=== PATIENT | female | born 1940 | race Caucasian/White ===

== ENCOUNTER 2018-07-25 04:22 | Inpatient (IN) | payer MEDICARE, MEDICAID ==
[2018-07-25] VITALS (7 sets, daily range): BP systolic 139–169; BP diastolic 83–98
[~2018-07-25] VITALS: Ht 157.5 cm; Wt 83.5 kg
--- OUTSIDE RECORDS SUMMARY | 2018-07-25 04:27 | XMS REPORT | Continuity of Care Document ---
Author Organization Unknown Address Unknown Allergies There is no data. Medications There is no data. Problems There is no data. Procedures There is no data. Results Test Result Range PDM - 09 PANEL (PROFILE 1) - 04/25/18 12:52 Prescribed Drug 1 Lyrica(TM) NRG Creatinine 83.7 mg/dL > or=20.0 pH 6.94 4.5 - 9.0 Oxidant NEGATIVE mcg/mL <200 Amphetamines NEGATIVE ng/mL <500 medMATCH Amphetamines CONSISTENT NRG Benzodiazepines NEGATIVE ng/mL <100 medMATCH Benzodiazepines CONSISTENT NRG Marijuana Metabolite NEGATIVE ng/mL <20 medMATCH Marijuana Metab CONSISTENT NRG Cocaine Metabolite NEGATIVE ng/mL <150 medMATCH Cocaine Metab CONSISTENT NRG Opiates NEGATIVE CONFIRMED ng/mL <100 Oxycodone POSITIVE ng/mL <100 COMMENT NRG Codeine NEGATIVE ng/mL <50 medMATCH Codeine CONSISTENT NRG Hydrocodone NEGATIVE ng/mL <50 medMATCH Hydrocodone CONSISTENT NRG Hydromorphone NEGATIVE ng/mL <50 medMATCH Hydromorphone CONSISTENT NRG Morphine NEGATIVE ng/mL <50 medMATCH Morphine CONSISTENT NRG Norhydrocodone NEGATIVE ng/mL <50 medMATCH Norhydrocodone CONSISTENT NRG Prescribed Drug 2 Oxycodone NRG Noroxycodone 450 ng/mL <50 medMATCH Noroxycodone CONSISTENT NRG Oxycodone 234 ng/mL <50 medMATCH Oxycodone CONSISTENT NRG Oxymorphone 1419 ng/mL <50 medMATCH Oxymorphone CONSISTENT NRG Barbiturates NEGATIVE ng/mL <300 medMATCH Barbiturates CONSISTENT NRG Methadone Metabolite NEGATIVE ng/mL <100 medMATCH Methadone Metab CONSISTENT NRG Phencyclidine NEGATIVE ng/mL <25 medMATCH Phencyclidine CONSISTENT NRG CBC w/MANUAL DIFF - 05/06/18 10:28 WHITE BLOOD CELL COUNT 8.2 Thousand/uL 3.8-10.8 RED BLOOD CELL COUNT 4.92 Million/uL 3.80-5.10 HEMOGLOBIN 14.3 g/dL 11.7-15.5 HEMATOCRIT 42.8 % 35.0-45.0 MCV 87.0 fL 80.0-100.0 MCH 29.1 pg 27.0-33.0 MCHC 33.4 g/dL 32.0-36.0 RDW 13.2 % 11.0-15.0 PLATELET COUNT 311 Thousand/uL 140-400 MPV 10.7 fL 7.5-12.5 COMMENT(S) NRG DIFFERENTIAL, MANUAL - 05/06/18 10:28 ABSOLUTE NEUTROPHILS 4707 cells/uL [id number] ABSOLUTE MONOCYTES 262 cells/uL 200-950 ABSOLUTE EOSINOPHILS 90 cells/uL 15-500 ABSOLUTE BASOPHILS 90 cells/uL 0-200 NEUTROPHILS 57.4 % NRG LYMPHOCYTES 37.2 % NRG MONOCYTES 3.2 % NRG EOSINOPHILS 1.1 % NRG BASOPHILS 1.1 % NRG ABSOLUTE LYMPHOCYTES 3050 cells/uL 850-3900 PLATELET ESTIMATION ADEQUATE ADEQUATE Encounters ACCT No. Visit Date/Time Discharge Status Pt. Type Provider Facility Loc./Unit Complaint [id number] 05/16/2018 10:00:00 05/16/2018 23:59:59 [facility] Outpatient BEATRICE ARUN CLINT AGUS TRISTEN [id number] 05/06/2018 10:00:00 Document Registration [id number] 04/25/2018 12:00:00 Document Registration
--- NOTE | 2018-07-25 04:43 | ED Abdominal Pain ---
General Chief Complaint: Abdominal/GI Problems Stated Complaint: ABD PAIN History of Present Illness Date Seen by Provider: Jul 25, 2018 Time Seen by Provider: 04:30 Initial Comments The patient is a pleasant 77-year-old female who arrives via EMS for evaluation of abdominal pain, nausea and vomiting. She says that yesterday evening she ate a jones cheeseburger with a "very large amount of sao tomean fries" at a restaurant and shortly afterward became nauseous and had a few episodes of vomiting. She then developed a cramping abdominal discomfort but states she could not have bowel movements that she took some stool softeners. She then was able to have several bowel movements. She says that prior to this meal she felt completely fine. She was concerned when the pain continued so called EMS this morning. She denies any diarrhea, rectal bleeding, hematemesis, chest pain or shortness of breath, back or flank pain, urinary complaints, pelvic pain, fevers or chills. She is alert and oriented 4, calm, and appears to be in no distress. Timing/Duration: Other (approx 8-10 hours) Severity/Quality: Moderate, Cramping Location: Generalized Abdomen Radiation: No Radiation Activities at Onset: None Modifying Factors: Improves With Vomiting (made pain better) Associated Symptoms: Nausea/Vomiting (MURIEL BILLS DO) Allergies and Home Medications Allergies Coded Allergies: Uqlboqm-Iao-Xtd Reductase Inhibitor (Verified Allergy, Unknown, 07/25/18) Sulfa (Sulfonamide Antibiotics) (Verified Allergy, Unknown, 07/25/18) codeine (Verified Allergy, Unknown, 07/25/18) lisinopril (Verified Allergy, Unknown, 07/25/18) Patient Home Medication List Home Medication List Reviewed: Yes (MURIEL BILLS DO) Home Medication List Reviewed: Yes (JOSE A ALVAREZ) Review of Systems Review of Systems Constitutional: no symptoms reported EENTM: No Symptoms Reported Respiratory: No Symptoms Reported Cardiovascular: No Symptoms Reported Gastrointestinal: Abdominal Pain, Nausea, Vomiting Genitourinary: No Symptoms Reported Musculoskeletal: no symptoms reported Skin: no symptoms reported Psychiatric/Neurological: No Symptoms Reported Endocrine: No Symptoms Reported Hematologic/Lymphatic: No Symptoms Reported (MURIEL BILLS DO) All Other Systems Reviewed Negative Unless Noted: Yes (MURIEL BILLS DO) Past Voftvwv-Zlzlkq-[place] Hx Patient Social History Recent Foreign Travel: No Contact w/Someone Who Travel: No (MURIEL BILLS DO) Recreational Drug Use: No (JOSE A ALVAREZ) Physical Exam Vital Signs Vital Signs - First Documented 07/25/18 04:39 Temp 97.7 Pulse 89 Resp 20 B/P (MAP) 149/76 (100) Pulse Ox 95 O2 Delivery Room Air (JOSE A ALVAREZ) Vital Signs Capillary Refill : (MURIEL BILLS DO) Height/Weight/BMI Height: '" Weight: lbs. oz. kg; BMI Method: General Appearance: WD/WN, no apparent distress HEENT: PERRL/EOMI, normal ENT inspection, TMs normal, pharynx normal Neck: non-tender, full range of motion, supple, normal inspection Respiratory: chest non-tender, lungs clear, normal breath sounds, no respiratory distress, no accessory muscle use Cardiovascular: regular rate, rhythm, no edema, no JVD, no murmur Gastrointestinal: non tender, soft, no organomegaly, no pulsatile mass, abnor mal bowel sounds (hyperactive) Extremities: normal range of motion, non-tender, normal inspection, no pedal edema Back: normal inspection, no CVA tenderness Neurologic/Psychiatric: 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 as tested, no motor/sensory deficits, alert, normal mood/affect, oriented x 3 Skin: normal color, warm/dry (MURIEL BILLS DO) Gastrointestinal: abnormal bowel sounds (hyperactive) (JOSE A ALVAREZ) Progress/Results/Core Measures Results/Orders Lab Results Laboratory Tests Test 07/25/18 04:40 07/25/18 06:10 Range/Units White Blood Count 11.1 H 4.3-11.0 10^3/uL Red Blood Count 4.97 4.35-5.85 10^6/uL Hemoglobin 14.1 11.5-16.0 G/DL Hematocrit 43 35-52 % Mean Corpuscular Volume 87 80-99 FL Mean Corpuscular Hemoglobin 28 25-34 PG Mean Corpuscular Hemoglobin Concent 33 32-36 G/DL Red Cell Distribution Width 13.2 10.0-14.5 % Platelet Count 290 130-400 10^3/uL Mean Platelet Volume 10.0 7.4-10.4 FL Neutrophils (%) (Auto) 90 H 42-75 % Lymphocytes (%) (Auto) 7 L 12-44 % Monocytes (%) (Auto) 3 0-12 % Eosinophils (%) (Auto) 0 0-10 % Basophils (%) (Auto) 0 0-10 % Neutrophils # (Auto) 10.0 H 1.8-7.8 X 10^3 Lymphocytes # (Auto) 0.7 L 1.0-4.0 X 10^3 Monocytes # (Auto) 0.4 0.0-1.0 X 10^3 Eosinophils # (Auto) 0.0 0.0-0.3 10^3/uL Basophils # (Auto) 0.0 0.0-0.1 10^3/uL Neutrophils % (Manual) 90 % Lymphocytes % (Manual) 7 % Monocytes % (Manual) 2 % Eosinophils % (Manual) 1 % Blood Morphology Comment NORMAL Sodium Level 138 135-145 MMOL/L Potassium Level 3.7 3.6-5.0 MMOL/L Chloride Level 97 L 98-107 MMOL/L Carbon Dioxide Level 25 21-32 MMOL/L Anion Gap 16 H 5-14 MMOL/L Blood Urea Nitrogen 26 H 7-18 MG/DL Creatinine 1.21 0.60-1.30 MG/DL Estimat Glomerular Filtration Rate 43 BUN/Creatinine Ratio 21 Glucose Level 176 H 70-105 MG/DL Calcium Level 10.0 8.5-10.1 MG/DL Corrected Calcium 9.8 8.5-10.1 MG/DL Total Bilirubin 2.0 H 0.1-1.0 MG/DL Aspartate Amino Transf (AST/SGOT) 369 H 5-34 U/L Alanine Aminotransferase (ALT/SGPT) 269 H 0-55 U/L Alkaline Phosphatase 265 H 40-136 U/L Troponin T 7 <=10 NG/L Total Protein 7.4 6.4-8.2 GM/DL Albumin 4.2 3.2-4.5 GM/DL Lipase 2075 H 8-78 U/L Urine Color YELLOW Urine Clarity CLEAR Urine pH 5.5 5-9 Urine Specific [place] 1.020 1.016-1.022 Urine Protein TRACE H NEGATIVE Urine Glucose (UA) NEGATIVE NEGATIVE Urine Ketones NEGATIVE NEGATIVE Urine Nitrite NEGATIVE NEGATIVE Urine Bilirubin NEGATIVE NEGATIVE Urine Urobilinogen 0.2 NORMAL MG/DL Urine Leukocyte Esterase NEGATIVE NEGATIVE Urine RBC (Auto) 1+ H NEGATIVE Urine RBC 2-5 H /HPF Urine WBC 0-2 /HPF Urine Squamous Epithelial Cells 0-2 /HPF Urine Crystals NONE /LPF Urine Bacteria LARGE H /HPF Urine Casts PRESENT /LPF Urine Hyaline Casts 0-2 H /LPF Urine Mucus NEGATIVE /LPF Urine Culture Indicated YES (JOSE A ALVAREZ) My Orders Orders - JOSE A ALVAREZ Fentanyl Injection (Sublimaze Injection (07/25/18 07:15) Ed Iv/Invasive Line Start (07/25/18 07:06) Ns Iv 1000 Ml (Sodium Chloride 0.9%) (07/25/18 07:06) Blood Culture (07/25/18 07:07) Lactic Acid Analyzer (07/25/18 07:07) Piperacillin/Tazobactam (Bulk) (Zosyn In (07/25/18 07:15) Ondansetron Injection (Zofran Injectio (07/25/18 07:30) Ondansetron Injection (Zofran Injectio (07/25/18 07:27) (JOSE A ALVAREZ) Medications Given in ED Current Medications Medications Dose Ordered Sig/Chela Route Start Time Stop Time Status Last Admin Dose Admin Fentanyl Citrate 25 mcg ONCE PRN IVP 07/25/18 05:00 07/25/18 05:08 25 MCG Iohexol 100 ml ONCE ONCE IV 07/25/18 05:15 07/25/18 06:02 DC 07/25/18 05:54 80 ML Ondansetron HCl 4 mg ONCE ONCE IVP 07/25/18 05:00 07/25/18 05:01 DC 07/25/18 05:08 4 MG Sodium Chloride 10 ml NEEDED PRN IV 07/25/18 05:15 07/25/18 05:55 10 ML Sodium Chloride 100 ml ONCE ONCE IV 07/25/18 05:15 07/25/18 06:02 DC 07/25/18 05:54 40 ML (JOSE A ALVAREZ) Vital Signs/I&O 07/25/18 04:39 Temp 97.7 Pulse 89 Resp 20 B/P (MAP) 149/76 (100) Pulse Ox 95 O2 Delivery Room Air (JOSE A ALVAREZ) Progress Progress Note : Progress Note @0545 - Patient noted to have a transaminitis as well as a significant elevation of her lipase. This significantly increases the likelihood of gallstone pancreatitis. CT imaging is pending. The patient will require transfer. @0600 - Pt care transferred from Dr. Bills to Dr. Ben Alvarez at this time. (MURIEL BILLS DO) Progress Note : Time: 07:03 Progress Note Assumed care of the patient at shift change. She says the fentanyl earlier only mildly helped. She still rates her pain as an 8 out of 10. We discussed the case with general surgery and they recommend sending her down admitting her to medicine and they would perform cholecystectomy. Plan to give her 100 g of fentanyl, a dose of Zosyn, more IV fluids and admit her to the hospitalist. 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 She also has kidney cancer as noted on the CT today and thyroid cancer and has had plans to have that further surgically optioned at but has not made it to surgery yet. She also mentions she has a history of CKD stage 3. Patient is being worked up by a nurse practitioner Ronak Todd at [facility]. (JOSE A ALVAREZ) Initial ECG Impression Date: Jul 25, 2018 Initial ECG Impression Time: 04:39 Comment Normal sinus rhythm, rate of 71, normal axis, no acute ischemic findings noted, no STEMI, reviewed and interpreted by myself (MURIEL BILLS DO) Diagnostic Imaging Diagonstic Imaging: CT (with contrast IV) Plain Films/CT/US/NM/MRI: abdomen, pelvis Comments Pericholecystic fluid and inflammatory/dilatory changes noted to the biliary ductal system. Gallbladder prominently distended measuring over 11 mm in length with suggestion of pericholecystic fluid or edema. Minimal hyperdense material is noted flaring posteriorly which may represent subcentimeter stones or hyperdense debris. In addition there is intrahepatic biliary ectasia. The common bile duct appears to be within normal limits measuring up to 7 mm. Differential consideration includes acute cholecystitis with coexisting cholangitis versus occult choledocholithiasis or recently passed calcified choledocholithiasis which is suggested in the small bowel in the pelvis. Please correlate with laboratory findings. If there is continued right upper quadrant tenderness right upper quadrant ultrasound may provide greater detail evaluation of this region. Multiloculated cystic structure involving the lateral aspect of the mid to superior right kidney measuring 3 x 3.7 x 3.4 cm with enhancing septations suggested. This is a presumed incidental finding however nonemergent renal ultrasound or the dedicated renal protocol imaging of the kidneys is recommended for further detailed evaluation as clinically appropriate. Diverticulosis of the distal colon without diverticulitis. No evidence for high- grade bowel obstruction. Mucosal prominence of the distal body of the stomach is presumed related to under distention. Reviewed: Reviewed [place] Study (statrad), Reviewed by Me (JOSE A ALVAREZ) Departure Communication (Admissions) Time/Spoke to Admitting Phy: 07:[address] Rosario and she accepts the patient. Time/Spoke to Consulting Phy: 07:00 Dr Sun: Discussed case lab imaging and he agrees to consult on the patient. We discussed cholecystectomy. If she is still having symptoms after that then it would be reasonable to do an ERCP. she does not have an elevated white count so he would hold off doing any antibiotics at this time. (JOSE A ALVAREZ) Impression Primary Impression: Pancreatitis due to biliary obstruction Qualified Codes: K85.10 - Biliary acute pancreatitis without necrosis or infection Additional Impressions: Cholecystitis, acute with cholelithiasis Qualified Codes: K80.01 - Calculus of gallbladder with acute cholecystitis with obstruction Biliary ectasia History of kidney cancer Disposition: 09 ADMITTED INPATIENT Condition: Stable Admissions Decision to Admit Reason: Admit from ER (General) Decision to Admit/Date: Jul 25, 2018 Time/Decision to Admit Time: 06:50 (JOSE A ALVAREZ) Departure-Patient Inst. Referrals: NO,LOCAL PHYSICIAN (PCP) Primary Care Physician MURIEL BILLS DO Jul 25, 2018 04:43 JOSE A ALVAREZ Jul 25, 2018 06:35
[2018-07-25] MEDS ORDERED: PRAMIPEXOLE 0.5 MG (04:56)
[2018-07-25] MEDS ORDERED: METOPROLOL SUCCINATE 100 MG (04:56)
[2018-07-25] MEDS ORDERED: HCTZ (04:56)
[2018-07-25] MEDS ORDERED: ATORVASTATIN 80 MG (04:56)
[2018-07-25] MEDS ORDERED: ESOMEPRA MAG CAP 40MG DR (04:56)
[2018-07-25] MEDS ORDERED: TRIAMT (04:56)
[2018-07-25] MEDS ORDERED: OXYCOD/APAP TAB 5-325MG (04:56)
[2018-07-25 05:00] LABS: BASOPHILS % (AUTO) 0 % (0-10); EOSINOPHILS % (AUTO) 0 % (0-10); HEMATOCRIT 43 % (35-52); HEMOGLOBIN 14.1 G/DL (11.5-16.0); LYMPHOCYTES # (AUTO) 0.7 X 10^3 (1.0-4.0); LYMPHOCYTES % (AUTO) 7 % (12-44); MEAN CORPUSCULAR HEMOGLOBIN 28 PG (25-34); MEAN CORPUSCULAR HGB CONC 33 G/DL (32-36); MEAN CORPUSCULAR VOLUME 87 FL (80-99); MONOCYTES # (AUTO) 0.4 X 10^3 (0.0-1.0); MONOCYTES % (AUTO) 3 % (0-12); NEUTROPHILS % (AUTO) 90 % (42-75); PLATELET COUNT 290 10^3/uL (130-400); RED CELL DISTRIBUTION WIDTH 13.2 % (10.0-14.5); WHITE BLOOD COUNT 11.1 10^3/uL (4.3-11.0)
[2018-07-25] MEDS ORDERED: fentaNYL INJECTION 100 MCG/2 ML AMP IVP PRN (05:00)
[2018-07-25] MEDS ORDERED: NS IV 1000 ML 500 ML IV SCH (05:00)
[2018-07-25] MEDS ORDERED: ONDANSETRON 4 MG/2 ML (SDV) Z0FRAN IVP ONE ×2 (05:00→07:30)
[2018-07-25 05:01] LABS: EOSINOPHILS % (MANUAL) 1 %; LYMPHOCYTES % (MANUAL) 7 %; MONOCYTES % (MANUAL) 2 %; NEUTROPHILS % (MANUAL) 90 %
[2018-07-25 05:02] LABS: RBC MORPH NORMAL
[2018-07-25] MEDS ORDERED: HOLD METFORMIN - RECEIVED CONTRAST 20 ML VIAL IV SCH (05:15)
[2018-07-25] MEDS ORDERED: NS 100 ML (IVPB) BAG IV ONE (05:15)
[2018-07-25] MEDS ORDERED: CATHETER FLUSH 10 ML SYR IV PRN ×2 (05:15→09:30)
[2018-07-25] MEDS ORDERED: IOHEXOL 350 MG/ML 100 ML (OMNIPAQUE 350) VIAL IV ONE (05:15)
[2018-07-25 05:34] LABS: CREATININE SERUM 1.21 MG/DL (0.60-1.30); POTASSIUM 3.7 MMOL/L (3.6-5.0)
[2018-07-25 05:35] LABS: ALBUMIN 4.2 GM/DL (3.2-4.5); TOTAL PROTEIN 7.4 GM/DL (6.4-8.2)
[2018-07-25 06:16] LABS: CLARITY,URINE CLEAR; COLOR,URINE YELLOW; PH,URINE 5.5 (5-9)
[2018-07-25 06:17] LABS: BILIRUBIN,URINE NEGATIVE (NEGATIVE); GLUCOSE, URINE (UA) NEGATIVE (NEGATIVE); KETONES,URINE NEGATIVE (NEGATIVE); LEUKOCYTE ESTERASE ,URINE NEGATIVE (NEGATIVE); NITRITE,URINE NEGATIVE (NEGATIVE); PROTEIN,URINE TRACE (NEGATIVE); UROBILINOGEN,URINE 0.2 MG/DL (NORMAL)
[2018-07-25 06:22] LABS: BACTERIA,URINE LARGE /HPF; HYALINE CASTS, URINE 0-2 /LPF; SQUAMOUS EPITHELIAL CELL,UR 0-2 /HPF; WBC,URINE 0-2 /HPF
[2018-07-25] MEDS ORDERED: NS IV 1000 ML 1,000 ML IV SCH (07:06)
[2018-07-25] MEDS ORDERED: fentaNYL INJECTION 100 MCG/2 ML AMP IVP ONE (07:15)
[2018-07-25] MEDS ORDERED: PIPERACILLIN/TAZOBACTAM (BULK) 4.5 GM in NS (IVPB) 100 ML IV ONE (07:15)
[2018-07-25] MEDS ORDERED: ONDANSETRON 4 MG/2 ML (SDV) Z0FRAN ONE (07:27)
--- OUTSIDE RECORDS SUMMARY | 2018-07-25 08:04 | XMS REPORT | Continuity of Care Document ---
[...] - 05/06/18 10:28 ABSOLUTE NEUTROPHILS 4707 cells/uL 3788-8749 ABSOLUTE MONOCYTES 262 cells/uL 200-950 ABSOLUTE EOSINOPHILS 90 cells/uL 15-500 ABSOLUTE BASOPHILS 90 cells/uL 0-200 NEUTROPHILS 57.4 % NRG LYMPHOCYTES 37.2 % NRG MONOCYTES 3.2 % NRG EOSINOPHILS 1.1 % NRG BASOPHILS 1.1 % NRG ABSOLUTE LYMPHOCYTES 3050 cells/uL 850-3900 PLATELET ESTIMATION ADEQUATE ADEQUATE Encounters ACCT No. Visit Date/Time Discharge Status Pt. Type Provider Facility Loc./Unit Complaint [id number] 05/16/2018 10:00:00 05/16/2018 23:59:59 [facility] Outpatient BEATRICE ARUN CLINT AGUS TRISTEN [id number] 05/06/2018 10:00:00 Document Registration [id number] 04/25/2018 12:00:00 Document Registration
--- NOTE | 2018-07-25 08:18 | NUR ---
EMS was paged at this time.
--- NOTE | 2018-07-25 08:26 | Diagnostic Imaging Report ---
PROCEDURE: CT abdomen and pelvis with contrast. TECHNIQUE: Multiple contiguous axial images were obtained through the abdomen and pelvis after administration of intravenous contrast. Auto Exposure Controls were utilized during the CT exam to meet ALARA standards for radiation dose reduction. INDICATION: Abdominal pain, history of carcinoma There are no prior studies available for comparison. The gallbladder is distended and there is a small amount of sludge and/or calculi within the dependent portion of the gallbladder. There is also small amount of pericholecystic fluid and the combination of these findings does suggest that there may well be an element of acute cholecystitis present. If further imaging is desired, then a nuclear medicine hepatobiliary scan would be recommended. The common bile duct is at the upper limits of normal measuring 7-8 MM and the proximal biliary tree does seem slightly dilated. There is no sign of choledocholithiasis and there is no evidence for a mass involving the head of the pancreas. The liver, spleen, adrenals, aorta and inferior vena cava show no sign of an acute abnormality. There is a 3.3 x 3.8 CM multiseptated cystic mass along the lateral aspect of the right kidney. This may well represent a benign process. Even so, I would recommend that an ultrasound of the right kidney be performed to better characterize this finding. The left kidney is unremarkable. There is no sign of obstruction of either collecting system. The stomach is filled with particular matter and consequently difficult to assess. The wall of the distal esophagus does seem somewhat thickened. This may be secondary to incomplete distention. If further study is desired, then either an upper GI exam or endoscopy would be recommended. There is extensive diverticulosis of the sigmoid colon but there is no distortion of the pericolonic fat to suggest acute diverticulitis. There is a small amount of free fluid in the pelvis. This is nonspecific. There is a 1 CM rounded radiopaque density within a segment of small bowel in the mid lower pelvis. This is of uncertain etiology but unlikely to represent a gallstone. There are no findings of a gallstone ileus at this time. The uterus is surgically absent. The urinary bladder is not fully distending consequently difficult to assess. There is a single droplet of gas within the bladder dome. This may be related to recent instrumentation. The appendix was visualized and was unremarkable. The bone windows show no sign of a fracture or of a destructive lesion. There are chronic pulmonary changes involving the lung bases. Cardiomegaly is also noted. IMPRESSION: 1. The gallbladder is distended and there is some sludge and/or small calculi within the gallbladder. The pericholecystic fluid also suggest there may be an element of acute cholecystitis present. Recommendations as above. 2. The common bile duct is at the upper limits of normal and the proximal biliary tree is slightly dilated. There is no sign of choledocholithiasis or of a mass involving the head of the pancreas. 3. A nonemergent ultrasound would be recommended for further evaluation of the multiseptated cystic mass along the lateral aspect of the right kidney. The wall of the distal esophagus does seem slightly thickened. Considerations and recommendations as above. 4. There is diverticulosis of the sigmoid colon without evidence for acute diverticulitis. A small amount of nonspecific free fluid is also seen in the pelvis. 5. There is cardiomegaly and chronic pulmonary disease. Dictated by: Dictated on workstation # [id number]
--- NOTE | 2018-07-25 09:10 | NUR ---
SOMMER FOSTER admitted to room 429-1, with an admitting diagnosis of CHOLECYSTITIS ABD PANCREATITIS, on 07/25/18 from ED via STRETCHER, accompanied by STAFF.SOMMER FOSTER introduced to surroundings, call light, bed controls, phone, TV, temperature control, lights, meal times, smoking policy, visitor policy, side rail policy, bathrooms and showers. Patient Rights given to patient in the handbook. SOMMER FOSTER verbalizes understanding that [facility] is not responsible for the loss or damage to any personal effects or valuables that are kept in the patients posession during their hospitalization. SOMMER FOSTER verbalizes understanding of Interdisciplinary Patient Education. Patient and/or family were informed about the Rapid Response Team and its purpose.
[2018-07-25] MEDS ORDERED: ONDANSETRON 4 MG/2 ML (SDV) Z0FRAN IV PRN (09:30)
[2018-07-25] MEDS ORDERED: PROMETHAZINE INJ 25 MG/ML (PHENERGAN) AMP IV PRN (09:30)
[2018-07-25] MEDS ORDERED: PRAM0.5T9 PO (10:03)
[2018-07-25] MEDS ORDERED: ATOR80TA76 PO (10:03)
[2018-07-25] MEDS ORDERED: ESOM40CA52 PO (10:03)
[2018-07-25] MEDS ORDERED: METO-395 PO (10:03)
[2018-07-25] MEDS ORDERED: ANAS1TAB7 PO (10:03)
[2018-07-25] MEDS ORDERED: POTA10TA10 PO (10:03)
[2018-07-25] MEDS ORDERED: TRIA1TAB3 PO (10:03)
[2018-07-25] MEDS ORDERED: OXYC-471 PO (10:03)
[2018-07-25] MEDS ORDERED: ASPI-983 PO (10:06)
[2018-07-25] MEDS ORDERED: VITA-189 PO (10:14)
[2018-07-25] MEDS ORDERED: ASCO-262 PO (10:14)
[2018-07-25] MEDS ORDERED: MULT1TAB69 PO (10:14)
--- NOTE | 2018-07-25 10:15 | NUR ---
WENT OVER THE EXT MED HX WITH THE PATIENT AND SHE VERIFIED HOW SHE TAKES THEM TO THE BEST OF HER ABILITY. SHE LISTED HER OTC MEDICATIONS WELL.
[2018-07-25] MEDS: NS W/KCL 20 MEQ/L 1,000 ML IV SCH ×2 (10:18→19:44)
[2018-07-25] MEDS: fentaNYL INJECTION 100 MCG/2 ML AMP IV PRN ×2 (11:14→17:43)
--- NOTE | 2018-07-25 14:18 | Consultation (Surgery) ---
History of Present Illness History of Present Illness Patient Consulted On(vivian/time) 07/25/18 14:12 Time Seen by Provider: 12:44 History of Present Illness Surgery asked to consult regarding abdominal pain, Pancreatitis and Cholelithiasis. HPI per ED: The patient is a pleasant 77-year-old female who arrives via EMS for evaluation of abdominal pain, nausea and vomiting. She says that yesterday evening she ate a jones cheeseburger with a "very large amount of icelandic fries" at a restaurant and shortly afterward became nauseous and had a few episodes of vomiting. She then developed a cramping abdominal discomfort but states she could not have bowel movements that she took some stool softeners. She then was able to have several bowel movements. She says that prior to this meal she felt completely fine. She was concerned when the pain continued so called EMS this morning. She denies any diarrhea, rectal bleeding, hematemesis, chest pain or shortness of breath, back or flank pain, urinary complaints, pelvic pain, fevers or chills. She is alert and oriented 4, calm, and appears to be in no distress. Timing/Duration: Other (approx 8-10 hours) Severity/Quality: Moderate, Cramping Location: Generalized Abdomen Radiation: No Radiation Activities at Onset: None Modifying Factors: Improves With Vomiting (made pain better) Associated Symptoms: Nausea/Vomiting When I saw pt today she was still having pain in the RUQ, intermittent sharp pains that she called 10 out of 10. She denies any nausea or vomiting at this time, but did get a lot of Zofran in ER. She does not think she has ever had pain like this before. Allergies and Home Medications Allergies Coded Allergies: Hoprckb-Vre-Ggy Reductase Inhibitor (Verified Allergy, Unknown, 07/25/18) Sulfa (Sulfonamide Antibiotics) (Verified Allergy, Unknown, 07/25/18) codeine (Verified Allergy, Unknown, 07/25/18) lisinopril (Verified Allergy, Unknown, 07/25/18) Home Medications Anastrozole 1 Mg Tablet, 1 MG PO DAILY, (Reported) Ascorbate Calcium 500 Mg Tablet, 500 MG PO DAILY, (Reported) Aspirin 81 Mg Tablet.dr, 81 MG PO DAILY, (Reported) Atorvastatin Calcium 80 Mg Tablet, 80 MG PO HS, (Reported) Esomeprazole Magnesium 40 Mg Capsule.dr, 40 MG PO DAILY, (Reported) Metoprolol Succinate 100 Mg Tab.er.24h, 100 MG PO DAILY, (Reported) Multivitamin 1 Each Tablet, 1 TAB PO DAILY, (Reported) Oxycodone HCl/Acetaminophen 1 Each Tablet, 1 TAB PO TID PRN for PAIN-MODERATE, (Reported) Potassium Chloride 10 Meq Tablet.er, 10 MEQ PO BID, (Reported) Pramipexole Di-HCl 0.5 Mg Tablet, 0.5 MG PO HS PRN for RESTLESSNESS, (Reported) Triamterene/Hydrochlorothiazid 1 Each Tablet, 1 TAB PO DAILY, (Reported) Vitamin B Complex 1 Each Tablet, 1 TAB PO DAILY, (Reported) Patient Home Medication List Home Medication List Reviewed: Yes Past Xauzorg-Rhlfrl-Ffqdqo Hx Patient Social History Alcohol Use: Denies Use Recreational Drug Use: No Smoking Status: Never a Smoker 2nd Hand Smoke Exposure: No Recent Foreign Travel: No Contact w/Someone Who Travel: No Recent Infectious Disease Expo: No Recent Hopitalizations: No Immunizations Up To Date Date of Pneumonia Vaccine: Jul 25, 2008 Seasonal Allergies Seasonal Allergies: No Surgeries History of Surgeries: Yes Surgeries: Breast Respiratory History of Respiratory Disorde: No Cardiovascular History of Cardiac Disorders: Yes Cardiac Disorders: High Cholesterol, Hypertension Neurological History of Neurological Disord: Yes Neurological Disorders: Neuropathy Genitourinary History of Genitourinary Disor: No Gastrointestinal History of Gastrointestinal Di: Yes Gastrointestinal Disorders: Diverticulosis, Hiatal Hernia Musculoskeletal History of Musculoskeletal Dis: Yes Musculoskeletal Disorders: Arthritis Endocrine History of Endocrine Disorders: Yes Endocrine Disorders: Hypothyroidsim HEENT History of HEENT Disorders: No Cancer History of Cancer: Yes Cancer: Breast, Thyroid, Kidney Psychosocial History of Psychiatric Problem: No Integumentary History of Skin or Integumenta: No Blood Transfusions History of Blood Disorders: No Family Medical History Significant Family History: Asthma, Cancer, COPD, Hypertension Family Medial History: Alcoholism 19 MOTHER Arthritis G8 BROTHER G8 SISTER Asthma 19 FATHER G8 SISTER Cataracts G8 SISTER Completed stroke G8 BROTHER Diabetes mellitus G8 BROTHER Hypertension 19 MOTHER Kidney disease G8 SISTER Respiratory disorder G8 BROTHER Review of Systems-General Constitutional: chills, diaphoresis, malaise, weakness EENTM: No blurred vision, No double vision, No mouth pain, No throat swelling Respiratory: No cough, No dyspnea on exertion, No hemoptysis Cardiovascular: No chest pain, No edema Gastrointestinal: abdominal pain; No jaundice; nausea, vomiting Genitourinary: No dysuria, No frequency, No hematuria Musculoskeletal: back pain, joint pain, joint swelling, muscle pain, muscle stiffness Skin: No change in color, No change in hair/nails Psychiatric/Neurological: Anxiety; Denies Depressed, Denies Seizure, Denies Tremors Other Pt denies any abnormal bleeding or bruising Physical Exam-General Problems Physical Exam Vital Signs Vital Signs - First Documented 07/25/18 04:39 Temp 97.7 Pulse 89 Resp 20 B/P (MAP) 149/76 (100) Pulse Ox 95 O2 Delivery Room Air Capillary Refill : Less Than 3 Seconds General Appearance: WD/WN, mild distress Eyes: Bilateral Eye PERRL, Bilateral Eye EOMI HEENT: pharynx normal; No scleral icterus (L), No pale conjunctivae (R), No pale conjunctivae (L) Neck: non-tender, supple Respiratory: chest non-tender, lungs clear, normal breath sounds, no respiratory distress, no accessory muscle use Cardiovascular: regular rate, rhythm Gastrointestinal: soft, tenderness, hernia (small umbilical hernia), other (obese) Back: normal inspection, no CVA tenderness, no vertebral tenderness Extremities: no pedal edema, no calf tenderness, normal capillary refill Neurologic/Psychiatric: 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 nml as tested, no motor/sensory deficits, alert, normal mood/affect, oriented x 3 Skin: normal color, warm/dry Lymphatic: no adenopathy (neck, axilla or groin) Data Review Labs Laboratory Tests 07/25/18 04:40: White Blood Count 11.1H, Red Blood Count 4.97, Hemoglobin 14.1, Hematocrit 43, Mean Corpuscular Volume 87, Mean Corpuscular Hemoglobin 28, Mean Corpuscular Hemoglobin Concent 33, Red Cell Distribution Width 13.2, Platelet Count 290, Mean Platelet Volume 10.0, Neutrophils (%) (Auto) 90H, Lymphocytes (%) (Auto) 7L , Monocytes (%) (Auto) 3, Eosinophils (%) (Auto) 0, Basophils (%) (Auto) 0, Neutrophils # (Auto) 10.0H, Lymphocytes # (Auto) 0.7L, Monocytes # (Auto) 0.4, Eosinophils # (Auto) 0.0, Basophils # (Auto) 0.0, Neutrophils % (Manual) 90, Lymphocytes % (Manual) 7, Monocytes % (Manual) 2, Eosinophils % (Manual) 1, Blood Morphology Comment NORMAL, Sodium Level 138, Potassium Level 3.7, Chloride Level 97L, Carbon Dioxide Level 25, Anion Gap 16H, Blood Urea Nitrogen 26H, Creatinine 1.21, Estimat Glomerular Filtration Rate 43, BUN/Creatinine Ratio 21, Glucose Level 176H, Calcium Level 10.0, Corrected Calcium 9.8, Total Bilirubin 2.0H, Aspartate Amino Transf (AST/SGOT) 369H, Alanine Aminotransferase (ALT/SGPT) 269H, Alkaline Phosphatase 265H, Troponin T 7, Total Protein 7.4, Albumin 4.2, Lipase 2075H 07/25/18 06:10: Urine Color YELLOW, Urine Clarity CLEAR, Urine pH 5.5, Urine Specific [place] 1.020, Urine Protein TRACEH, Urine Glucose (UA) NEGATIVE, Urine Ketones NEGATIVE, Urine Nitrite NEGATIVE, Urine Bilirubin NEGATIVE, Urine Urobilinogen 0.2, Urine Leukocyte Esterase NEGATIVE, Urine RBC (Auto) 1+H, Urine RBC 2-5H, Urine WBC 0-2, Urine Squamous Epithelial Cells 0-2, Urine Crystals NONE, Urine Bacteria LARGEH, Urine Casts PRESENT, Urine Hyaline Casts 0-2H, Urine Mucus NEGATIVE, Urine Culture Indicated YES 07/25/18 07:30: Lactic Acid Level 3.96*H 07/25/18 10:27: Lactic Acid Level 3.38*H Assessment/Plan Assessment/Plan Assessment/Plan Acute Cholelithiasis/Cholecystitis Acute Pancreatits HTN, Hypothyroidism Plan is admit NPO except sips of water, pain control, anti-emetics, IV fluids and monitor abdomen. Will recheck labs and make her NPO after midnight for planned Laparoscopic Cholecystectomy with possible cholangiogram, possible open tomorrow. Just waiting for pain to get a little better and pancreatic enzymes to start trending down. Discussed surgery with pt; risks and complications including but not limited to pain, bleeding, infection, scar, damage to bowel or bile duct and need for further procedure. All questions answered to her satisfaction. Clinical Quality Measures DVT/VTE Risk/Contraindication: Risk Factor Score Per Nursin RFS Level Per Nursing on Admit: 4+=Very High ROSARIO MOJICA DO Jul 25, 2018 14:17
[2018-07-25] MEDS ORDERED: LORazepam 0.5 MG (ATIVAN) TABLET PO NR (14:47)
[2018-07-25] MEDS ORDERED: LORazepam 1 MG (ATIVAN) TAB ONE (14:50)
[2018-07-25] MEDS ORDERED: fentaNYL INJECTION 100 MCG/2 ML AMP IM NR (15:00)
[2018-07-25] MEDS ORDERED: ACETAMINOPHEN 325 MG TABLET PO NR (15:15)
--- NOTE | 2018-07-25 15:46 | Diagnostic Imaging Report ---
EXAMINATION: Single AP view of the chest. INDICATION: PICC placement. COMPARISON: None available. FINDINGS: The right upper extremity PICC is coiled in the right axilla. There is mild left basilar atelectasis. The lungs are otherwise clear. The pulmonary vasculature is normal. No pneumothorax or large pleural effusion. The cardiomediastinal silhouette is within normal limits allowing for AP technique. No acute osseous abnormality is appreciated. Surgical clips are demonstrated in the region of the right axilla. IMPRESSION: 1. Malpositioned right upper extremity PICC, which is coiled in the right axilla. 2. Mild left basilar atelectasis; otherwise, no radiographic evidence of acute chest disease. Report was called to patient's nurse at [facility] at 3:43 p.m., by trinidad. Dictated by: Dictated on workstation # [id number]
--- NOTE | 2018-07-25 17:43 | Progress Note-Post Operative ---
Post-Operative Progess Note Surgeon (s)/Insurance Marketing Rep (s) Surgeon ROSARIO MOJICA DO Insurance Marketing Rep: none Pre-Operative Diagnosis Venous Insufficiency Post-Operative Diagnosis same Procedure & Operative Findings Date of Procedure 07/25/18 Procedure Performed/Findings Central line R IJ with US Anesthesia Type local lidocaine Estimated Blood Loss Estimated blood loss (mL): scant Specimens/Packing Specimens Removed none Packing: dictation #[id number] ROSARIO MOJICA DO Jul 25, 2018 17:43
--- NOTE | 2018-07-25 21:42 | OPERATIVE REPORT ---
DATE OF SERVICE: 07/25/2018 PREOPERATIVE DIAGNOSIS: Venous insufficiency. POSTOPERATIVE DIAGNOSIS: Venous insufficiency. PROCEDURE: Insertion of triple lumen catheter, right IJ with ultrasound guidance. SURGEON: Francisco Sun DO. SIGNAL PROCESSING ENGINEER: None. ANESTHESIA: Local lidocaine. BLOOD LOSS: Scant. FLUIDS: None. POSTOPERATIVE CONDITION: Stable. INDICATION FOR PROCEDURE: The patient is a 77-year-old female who is in the hospital with acute cholecystitis, cholelithiasis. She lost her IV access and multiple nurses attempted Peripheral access, then had a PICC line nurse check, unable to get it and then had the anesthesiologist tried twice and unable to get it, so the patient needed IV access. She has a high lactic acid and fluids and pain medications are very essential and needed a central line placed. FINDINGS: The patient had a central line placed in the right IJ under ultrasound guidance without any difficulty. PROCEDURE NOTE: After informed consent was obtained, the patient in her bed was placed slightly Trendelenburg. She was then sterilely prepped and draped in normal fashion. Local lidocaine was then used to infiltrate the skin on the right neck. Ultrasound was then used to find the right IJ and then under ultrasound guidance watched the needle go into the internal jugular vein, went in on the first attempt, but this could not get the guidewire to go down, so had to remove it, placed it again, good flash of blood and then removed the syringe, placed a guidewire using Seldinger technique, it went in easily. I then looked with ultrasound and could see the wire down further in the IJ. At this point, removed the needle, made a stab incision along the guidewire with #11 blade and then over the guidewire placed a dilator using Seldinger technique and then removed the dilator and then over the guidewire, placed the triple lumen catheter using Seldinger technique, it went in easily, removed the guidewire and placed 3 locking caps on the end of the 3 lumens and then easily aspirated and flushed in all 3 ports, got a good flash of blood. This was then sutured in place with 2-0 silk suture, had already infiltrated the neck with the local through that area. Once it was locked in position, then just cleaned the area with sterile saline and then placed a Biopatch and then a Tegaderm dressing. The patient tolerated the procedure, placed back in normal position. Sponge, instrument and needle counts were correct at the end of the case. Job ID: [id number] DocumentID: [id number] Dictated Date: 07/25/2018 17:42:59 Electrical Controls Designer Date: 07/25/2018 21:41:34 Dictated By: FRANCISCO SUN DO
[2018-07-26] VITALS (21 sets, daily range): BP systolic 71–155; BP diastolic 44–103
[2018-07-26] MEDS: NS W/KCL 20 MEQ/L 1,000 ML IV SCH ×4 (02:31→21:19)
[2018-07-26] MEDS: fentaNYL INJECTION 100 MCG/2 ML AMP IV PRN ×3 (05:25→23:14)
[2018-07-26 05:38] LABS: BASOPHILS % (AUTO) 0 % (0-10); EOSINOPHILS % (AUTO) 0 % (0-10); HEMATOCRIT 38 % (35-52); HEMOGLOBIN 12.3 G/DL (11.5-16.0); LYMPHOCYTES # (AUTO) 1.1 X 10^3 (1.0-4.0); LYMPHOCYTES % (AUTO) 5 % (12-44); MEAN CORPUSCULAR HEMOGLOBIN 28 PG (25-34); MEAN CORPUSCULAR HGB CONC 33 G/DL (32-36); MEAN CORPUSCULAR VOLUME 86 FL (80-99); MONOCYTES # (AUTO) 1.3 X 10^3 (0.0-1.0); MONOCYTES % (AUTO) 6 % (0-12); NEUTROPHILS # (AUTO) 18.4 X 10^3 (1.8-7.8); NEUTROPHILS % (AUTO) 88 % (42-75); PLATELET COUNT 216 10^3/uL (130-400); RED CELL DISTRIBUTION WIDTH 14.4 % (10.0-14.5); WHITE BLOOD COUNT 20.9 10^3/uL (4.3-11.0)
[2018-07-26 06:01] LABS: ALBUMIN 3.4 GM/DL (3.2-4.5); BILIRUBIN,TOTAL 1.6 MG/DL (0.1-1.0); CALCIUM 9.1 MG/DL (8.5-10.1); CREATININE SERUM 0.94 MG/DL (0.60-1.30); POTASSIUM 3.7 MMOL/L (3.6-5.0)
--- NOTE | 2018-07-26 09:02 | NUR ---
PRIOR TO A.M. MEDICATIONS PULSE WAS 147 B/P WAS 132/85
[2018-07-26] MEDS ORDERED: PIPERACILLIN/TAZO 4.5 GM/NS 100 ML IV NR ×2 (10:15)
[2018-07-26] MEDS ORDERED: LABETALOL HCL 20 MG/4 ML VIAL IV NR (10:45)
--- NOTE | 2018-07-26 10:49 | NUR ---
DR. LINARES CONSULTED AT THIS TIME FOR SURGICAL CLEARANCE.
--- NOTE | 2018-07-26 12:19 | History & Physicial (CHS) ---
HPI History of Present Illness: 77 yo F that presented to ER after eating dinner and then having severe pain. States that she has not had pain like this before. Denies any N/V or blood in stool. This AM patient is having shortness of breath and having tachycardia into the 140s. Denies any chest pain. Found to have concerns for acute cholecystitis on exam and imaging. Source: patient Exam Limitations: no limitations Date seen by provider: Jul 26, 2018 Time Seen by Provider: 10:45 Attending Physician Palmer Rosario MD PCP [place] Consult Date of Admission Jul 25, 2018 at 08:00 Home Medications Home Medications Reviewed patient Home Medication Reconciliation performed by pharmacy medication reconciliations chemical production technician and/or nursing. Patients Allergies have been reviewed. Allergies Coded Allergies: Ukmczex-Lzb-Xgn Reductase Inhibitor (Verified Allergy, Unknown, 07/25/18) Sulfa (Sulfonamide Antibiotics) (Verified Allergy, Unknown, 07/25/18) codeine (Verified Allergy, Unknown, 07/25/18) lisinopril (Verified Allergy, Unknown, 07/25/18) IPX-Rahkvt-Wrrtwk Hx Patient Social History Alcohol Use: Denies Use Recreational Drug Use: No Smoking Status: Never a Smoker 2nd Hand Smoke Exposure: No Recent Foreign Travel: No Contact w/other who traveled: No Recent Hopitalizations: No Recent Infectious Disease Expo: No Immunizations Up To Date Date of Pneumonia Vaccine: Jul 25, 2008 Past Medical History GERD HTN Family Medical History Significant Family History: Asthma, Cancer, COPD, Hypertension Family History: Alcoholism 19 MOTHER Arthritis G8 BROTHER G8 SISTER Asthma 19 FATHER G8 SISTER Cataracts G8 SISTER Completed stroke G8 BROTHER Diabetes mellitus G8 BROTHER Hypertension 19 MOTHER Kidney disease G8 SISTER Respiratory disorder G8 BROTHER Review of Systems (CHC) Constitutional: chills, malaise, weakness EENTM: no symptoms reported; No mouth pain, No nose congestion, No nose pain, No throat swelling Respiratory: dyspnea on exertion; No orthopnea; short of breath Cardiovascular: no symptoms reported; No chest pain, No edema, No palpitations Gastrointestinal: abdominal pain (RUQ), loss of appetite; No nausea, No vomiting Genitourinary: no symptoms reported; No dysuria, No frequency, No hematuria : No Musculoskeletal: no symptoms reported; No back pain, No joint pain, No muscle pain Skin: no symptoms reported; No lesions, No rash Psychiatric/Neurological: No Symptoms Reported Reviewed Test Results Reviewed Test Results Lab Laboratory Tests Test 07/26/18 05:30 07/26/18 11:02 07/26/18 15:57 Range/Units White Blood Count 20.9 H 4.3-11.0 10^3/uL Red Blood Count 4.35 4.35-5.85 10^6/uL Hemoglobin 12.3 11.5-16.0 G/DL Hematocrit 38 35-52 % Mean Corpuscular Volume 86 80-99 FL Mean Corpuscular Hemoglobin 28 25-34 PG Mean Corpuscular Hemoglobin Concent 33 32-36 G/DL Red Cell Distribution Width 14.4 10.0-14.5 % Platelet Count 216 130-400 10^3/uL Mean Platelet Volume 10.0 7.4-10.4 FL Neutrophils (%) (Auto) 88 H 42-75 % Lymphocytes (%) (Auto) 5 L 12-44 % Monocytes (%) (Auto) 6 0-12 % Eosinophils (%) (Auto) 0 0-10 % Basophils (%) (Auto) 0 0-10 % Neutrophils # (Auto) 18.4 H 1.8-7.8 X 10^3 Lymphocytes # (Auto) 1.1 1.0-4.0 X 10^3 Monocytes # (Auto) 1.3 H 0.0-1.0 X 10^3 Eosinophils # (Auto) 0.0 0.0-0.3 10^3/uL Basophils # (Auto) 0.0 0.0-0.1 10^3/uL Sodium Level 141 135-145 MMOL/L Potassium Level 3.7 3.6-5.0 MMOL/L Chloride Level 111 H 98-107 MMOL/L Carbon Dioxide Level 22 21-32 MMOL/L Anion Gap 8 5-14 MMOL/L Blood Urea Nitrogen 20 H 7-18 MG/DL Creatinine 0.94 0.60-1.30 MG/DL Estimat Glomerular Filtration Rate 58 BUN/Creatinine Ratio 21 Glucose Level 117 H 70-105 MG/DL Calcium Level 9.1 8.5-10.1 MG/DL Corrected Calcium 9.6 8.5-10.1 MG/DL Total Bilirubin 1.6 H 0.1-1.0 MG/DL Aspartate Amino Transf (AST/SGOT) 190 H 5-34 U/L Alanine Aminotransferase (ALT/SGPT) 324 H 0-55 U/L Alkaline Phosphatase 220 H 40-136 U/L Total Protein 6.0 L 6.4-8.2 GM/DL Albumin 3.4 3.2-4.5 GM/DL Triglycerides Level 90 <150 MG/DL Lactic Acid Level 0.92 0.50-2.00 MMOL/L B-Type Natriuretic Peptide 88.7 <100.0 PG/ML Physical Exam-(CHC) Physical Exam Vital Signs VS - Last 72 Hours, by Label 07/25/18 07/25/18 07/25/18 07/25/18 04:39 07:30 07:45 08:00 Temp 97.7 Pulse 89 107 108 106 Resp 20 20 18 B/P (MAP) 149/76 (100) 139/88 (105) 157/98 (117) 166/90 (115) Pulse Ox 95 96 95 91 O2 Delivery Room Air Room Air Nasal Cannula Room Air 07/25/18 07/25/18 07/25/18 07/25/18 08:15 08:30 09:10 12:00 Temp 98.0 100.7 Pulse 102 92 116 Resp 18 20 18 B/P (MAP) 169/91 (117) 160/80 (106) 143/89 (107) Pulse Ox 93 93 94 O2 Delivery Room Air Room Air Room Air Room Air 07/25/18 07/25/18 07/25/18 07/25/18 16:59 17:47 19:57 20:45 Temp 100.0 100.0 100.3 Pulse 110 106 Resp 22 32 B/P (MAP) 155/88 (110) 143/83 (103) Pulse Ox 94 93 O2 Delivery Room Air Room Air Room Air 07/26/18 07/26/18 07/26/18 07/26/18 00:26 04:59 08:00 08:00 Temp 99.0 99.8 100.1 Pulse 104 122 147 Resp 28 28 B/P (MAP) 120/70 (87) 155/83 (107) 126/75 (92) Pulse Ox 91 91 90 90 O2 Delivery Room Air Room Air Room Air Room Air 07/26/18 07/26/18 12:00 15:42 Temp 99.5 Pulse 101 112 Resp 26 23 B/P (MAP) 129/62 (84) Pulse Ox 92 96 O2 Delivery Room Air FiO2 50 Capillary Refill : Less Than 3 Seconds General Appearance: WD/WN HEENT: PERRL/EOMI Neck: non-tender, full range of motion, supple Respiratory: lungs clear, normal breath sounds, accessory muscle use Cardiovascular: normal peripheral pulses, regular rate, rhythm, no edema, no murmur Gastrointestinal: normal bowel sounds, soft, no organomegaly, tenderness (RUQ) Back: no CVA tenderness, no vertebral tenderness Extremities: no pedal edema, no calf tenderness, normal capillary refill Neurologic/Psychiatric: 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 nml as tested, no motor/sensory deficits, alert, normal mood/affect, oriented x 3 Skin: normal color, warm/dry Lymphatic: no adenopathy Assessment/Plan Assessment/Plan Admission Status: Inpatient Order (span 2 midnights) Reason for Inpatient Admission: Patient needs close monitoring and surgery (1) Shortness of breath Status: Acute Assessment & Plan: - Normal saturations but patient is tachycardic, decreased IVFs 75, BNP pending, ECG pending (2) Tachyarrhythmia Status: Acute Assessment & Plan: - ECG pending, Labetalol given, Cardiology consulted for surgical clearance (3) Cholecystitis, acute with cholelithiasis Status: Acute Assessment & Plan: - Dr Sun managing Qualifiers: Qualified Codes: K80.01 - Calculus of gallbladder with acute cholecystitis with obstruction (4) Pancreatitis due to biliary obstruction Status: Acute Qualifiers: Qualified Codes: K85.10 - Biliary acute pancreatitis without necrosis or infection (5) Lactic acid acidosis Status: Acute Assessment & Plan: - Repeat LA pending Clinical Quality Measures DVT/VTE Risk/Contraindication: Risk Factor Score Per Nursin RFS Level Per Nursing on Admit: 4+=Very High PALMER ROSARIO MD Jul 26, 2018 12:19
[2018-07-26] MEDS ORDERED: proPOfol 200 MG/20 ML (DIPRIVAN) VIAL IV ONE (12:27)
[2018-07-26] MEDS ORDERED: LIDOCAINE PF 2% 5 ML (XYLOCAINE) VIAL ONE (12:27)
[2018-07-26] MEDS ORDERED: ROCURONIUM 10 MG/ML 5 ML SYRINGE IV ONE ×2 (12:27→14:54)
[2018-07-26] MEDS ORDERED: ONDANSETRON 4 MG/2 ML (SDV) Z0FRAN ONE (12:27)
[2018-07-26] MEDS ORDERED: SUCCINYLCHOLINE INJ 100 MG/5 ML SYR ONE (12:27)
[2018-07-26] MEDS ORDERED: fentaNYL INJECTION 100 MCG/2 ML AMP ONE ×2 (12:28→14:47)
[2018-07-26] MEDS ORDERED: MIDAZOLAM 2 MG/2 ML (VERSED) VIAL ONE (12:28)
[2018-07-26] MEDS ORDERED: LIDOCAINE/EPI 1%-1:100,000 (XYLOCAINE) 20ML ONE (13:03)
[2018-07-26] MEDS ORDERED: BUPIVACAINE 0.5% 30 ML (SENSORCAINE) VIAL ONE (13:03)
--- NOTE | 2018-07-26 13:30 | NUR ---
PATIENT TO SURGERY VIA BED AT THIS TIME. DR. LINARES ALSO HERE AT THIS TIME FOR CARDIAC CLEARANCE FOR SURGERY AT THIS TIME.
--- NOTE | 2018-07-26 13:33 | Consultation-Cardiology ---
HPI-Cardiology Cardiology Consultation Date of Consultation 07/26/18 Date of Admission Time Seen by Provider: 13:28 Indication: tachycardia HPI 77 years old lady with history of hypertension, admitted with acute cholecystitis and she was scheduled for surgery today. I was called for preoperative evaluation due to tachycardia, her heart rate is over 100, she denied any previous cardiac history, no chest pain. No palpitation, having abdominal pain. Having fever. No previous cardiac workup was done. Home Medications & Allergies Allergies: Coded Allergies: Tjrcynu-Uqn-Ytu Reductase Inhibitor (Verified Allergy, Unknown, 07/25/18) Sulfa (Sulfonamide Antibiotics) (Verified Allergy, Unknown, 07/25/18) codeine (Verified Allergy, Unknown, 07/25/18) lisinopril (Verified Allergy, Unknown, 07/25/18) Home Medication List Reviewed: Yes BSN-Wvassi-Iamkhs Hx Patient Social History Alcohol Use: Denies Use Recreational Drug Use: No Smoking Status: Never a Smoker 2nd Hand Smoke Exposure: No Recent Foreign Travel: No Recent Infectious Disease Expo: No Recent Hopitalizations: No Immunizations Up To Date Date of Pneumonia Vaccine: Jul 25, 2008 Past Medical History discussed below Family Medical History Significant Family History: Asthma, Cancer, COPD, Hypertension Family History: Alcoholism 19 MOTHER Arthritis G8 BROTHER G8 SISTER Asthma 19 FATHER G8 SISTER Cataracts G8 SISTER Completed stroke G8 BROTHER Diabetes mellitus G8 BROTHER Hypertension 19 MOTHER Kidney disease G8 SISTER Respiratory disorder G8 BROTHER Review of Systems-General Review of Systems Constitutional: chills, diaphoresis, malaise, weakness EENTM: No blurred vision, No double vision, No mouth pain, No throat swelling Respiratory: No cough, No dyspnea on exertion, No hemoptysis Cardiovascular: No chest pain, No edema Gastrointestinal: abdominal pain; No jaundice; nausea, vomiting Genitourinary: No dysuria, No frequency, No hematuria Musculoskeletal: back pain, joint pain, joint swelling, muscle pain, muscle stiffness Skin: No change in color, No change in hair/nails Psychiatric/Neurological: Anxiety; Denies Depressed, Denies Seizure, Denies Tremors All Other Systems Reviewed Negative Unless Noted: Yes Reviewed Test Results Reviewed Test Results Lab Laboratory Tests Test 07/26/18 05:30 07/26/18 11:02 Range/Units White Blood Count 20.9 H 4.3-11.0 10^3/uL Red Blood Count 4.35 4.35-5.85 10^6/uL Hemoglobin 12.3 11.5-16.0 G/DL Hematocrit 38 35-52 % Mean Corpuscular Volume 86 80-99 FL Mean Corpuscular Hemoglobin 28 25-34 PG Mean Corpuscular Hemoglobin Concent 33 32-36 G/DL Red Cell Distribution Width 14.4 10.0-14.5 % Platelet Count 216 130-400 10^3/uL Mean Platelet Volume 10.0 7.4-10.4 FL Neutrophils (%) (Auto) 88 H 42-75 % Lymphocytes (%) (Auto) 5 L 12-44 % Monocytes (%) (Auto) 6 0-12 % Eosinophils (%) (Auto) 0 0-10 % Basophils (%) (Auto) 0 0-10 % Neutrophils # (Auto) 18.4 H 1.8-7.8 X 10^3 Lymphocytes # (Auto) 1.1 1.0-4.0 X 10^3 Monocytes # (Auto) 1.3 H 0.0-1.0 X 10^3 Eosinophils # (Auto) 0.0 0.0-0.3 10^3/uL Basophils # (Auto) 0.0 0.0-0.1 10^3/uL Sodium Level 141 135-145 MMOL/L Potassium Level 3.7 3.6-5.0 MMOL/L Chloride Level 111 H 98-107 MMOL/L Carbon Dioxide Level 22 21-32 MMOL/L Anion Gap 8 5-14 MMOL/L Blood Urea Nitrogen 20 H 7-18 MG/DL Creatinine 0.94 0.60-1.30 MG/DL Estimat Glomerular Filtration Rate 58 BUN/Creatinine Ratio 21 Glucose Level 117 H 70-105 MG/DL Calcium Level 9.1 8.5-10.1 MG/DL Corrected Calcium 9.6 8.5-10.1 MG/DL Total Bilirubin 1.6 H 0.1-1.0 MG/DL Aspartate Amino Transf (AST/SGOT) 190 H 5-34 U/L Alanine Aminotransferase (ALT/SGPT) 324 H 0-55 U/L Alkaline Phosphatase 220 H 40-136 U/L Total Protein 6.0 L 6.4-8.2 GM/DL Albumin 3.4 3.2-4.5 GM/DL Lactic Acid Level 0.92 0.50-2.00 MMOL/L B-Type Natriuretic Peptide 88.7 <100.0 PG/ML Physical Exam Physical Exam Vital Signs Vital Signs - First Documented 07/25/18 04:39 Temp 97.7 Pulse 89 Resp 20 B/P (MAP) 149/76 (100) Pulse Ox 95 O2 Delivery Room Air Capillary Refill : Less Than 3 Seconds Height, Weight, BMI Height: 5'2.00" Weight: 175lbs. 0.0oz. 79.401444wp; 32.0 BMI Method:Stated General Appearance: WD/WN, Moderate Distress Eyes: Bilateral Eye PERRL, Bilateral Eye EOMI HEENT: PERRL/EOMI, TMs Normal, Normal ENT Inspection, Pharynx Normal, Moist Mucous Membranes Neck: Full Range of Motion, Normal Inspection, Non Tender, Supple, Carotid Bruit Respiratory: Chest Non Tender, Normal Breath Sounds, No Accessory Muscle Use, No Respiratory Distress Cardiovascular: No Edema, No Gallop, No JVD, No Murmur, Normal Peripheral Pulses, Systolic Murmur, Tachycardia Gastrointestinal: No Organomegaly, No Pulsatile Mass, Soft, Abnormal Bowel Sounds, Distended, Tenderness Back: Normal Inspection, No CVA Tenderness, No Vertebral Tenderness Extremity: Normal Capillary Refill, Normal Inspection, Normal Range of Motion, Non Tender, No Calf Tenderness, No Pedal Edema Neurologic/Psychiatric: Alert, Oriented x3, No Motor/Sensory Deficits, Normal Mood/Affect Skin: Normal Color, Warm/Dry Lymphatic: No Adenopathy A/P-Cardiology Admission Diagnosis Acute cholecystitis Acute pancreatitis Sinus tachycardia Hypertension Assessment/Plan Acute cholecystitis, patient is scheduled for surgery today. Next Acute pancreatitis, monitor at this time. Sinus tachycardia secondary to above, continue to monitor and use IV beta blockers as tolerated Shortness of breath. Continue to monitor postoperatively Hypertension, restart home medication once patient recovered from surgery. Preoperative cardiac evaluation, patient is considered at intermediate to high risk for perioperative cardiac vascular complications, decision regarding the surgery, risks versus benefit is deferred to surgeon Clinical Quality Measures DVT/VTE Risk/Contraindication: Risk Factor Score Per Nursin RFS Level Per Nursing on Admit: 4+=Very High OSCAR LINARES MD Jul 26, 2018 13:33
[2018-07-26] MEDS: LACTATED RINGERS 1,000 ML IV PRN ×2 (13:36→14:33)
[2018-07-26] MEDS ORDERED: SEVOFLURANE (ULTANE) 15 ML INHAL SOLN ONE ×2 (14:22→14:55)
[2018-07-26] MEDS ORDERED: DEXAMETHASONE 10 MG/ML (DECADRON) 1 ML VIAL ONE (14:23)
[2018-07-26] MEDS ORDERED: NEOSTIGMINE 1 MG/ML 5 ML SYRINGE ONE (14:32)
[2018-07-26] MEDS ORDERED: GLYCOPYRROLATE 0.2 MG/ML (ROBINUL) 2 ML VIAL ONE (14:32)
[2018-07-26] MEDS ORDERED: SUGAMMADEX 500 MG/5 ML VIAL (BRIDION) IV ONE (14:41)
--- NOTE | 2018-07-26 14:42 | Progress Note-Post Operative ---
Post-Operative Progess Note Surgeon (s)/Consultant Education (s) Surgeon ROSARIO MOJICA DO Consultant Education: Nanci Pre-Operative Diagnosis Acute Jaquan/jaquan, Acute Pancreatitis Post-Operative Diagnosis Same with possible necrotic GB, Saponification of surrounding tissue with some fat necrosis and fat necrosis of Falciform ligament Procedure & Operative Findings Date of Procedure 07/26/18 Procedure Performed/Findings Lap Jaquan with IOC Anesthesia Type GET Estimated Blood Loss Estimated blood loss (mL): scant Specimens/Packing Specimens Removed GB and contents ROSARIO MOJICA DO Jul 26, 2018 14:42
[2018-07-26] MEDS ORDERED: PROPOFOL DRIP (ICU) 100 ML IV ONE (15:09)
[2018-07-26] MEDS ORDERED: PROPOFOL DRIP (ICU) 100 ML IV SCH (15:30)
--- NOTE | 2018-07-26 15:45 | NUR ---
RECEIVED REPORT FROM BRITT FUNERAL DIRECTOR/EMBALMER. THIS RN TO ASSUME CARE OF PT. PT TRANSFERRED TO [facility]6 AFTER SURGERY. PT CURRENTLY SEDATED ON VENT. APPEARS COMFORTABLE. 4 ABD LAP SITES NOTED W/ DERMABOND. NO DRAINAGE. ICE PACK OVER SITES. WILL CONT TO MONITOR PT.
--- NOTE | 2018-07-26 15:51 | NUR ---
EICU NOTIFIED OF PT'S ARRIVAL TO [facility], DR ROB TO REVIEW LABS/XRAY AND FAX OVER VENT ORDERS.
[2018-07-26 16:05] LABS: ABG BASE EXCESS -1.2 MMOL/L (-2.5-2.5); ABG OXYGEN SATURATION 96 % (94-100); ABG PCO2 47 MMHG (35-45); ABG PO2 75 MMHG (79-93); ABG TCO2 25.4 MMOL/L (21.0-31.0)
[2018-07-26] MEDS: PROPOFOL DRIP (ICU) 100 ML IV SCH ×2 (16:05→21:17)
--- NOTE | 2018-07-26 16:05 | Diagnostic Imaging Report ---
INDICATION: Intubated patient. COMPARISON: 07/25/2018. FINDINGS: Single frontal radiographic view of the chest was obtained and demonstrates indwelling gastric tube, tip of which extends inferiorly beyond the [id number]. Per report, there is indwelling endotracheal tube. Endotracheal tube however is heavily obscured. Right upper extremity central venous catheter is also seen. Tip appears to terminate within the right atrium just below the cavoatrial junction. Cardiac silhouette and pulmonary vasculature are stable. Lungs show low inspiratory volumes with bibasilar atelectasis. There is also probable small left basilar effusion. No pneumothorax is seen. Bony structures show no gross acute abnormalities. IMPRESSION: 1. Lines and tubes as above. Please note, the reported indwelling endotracheal tube is obscured. 2. Low lung volumes with bibasilar atelectasis and probable small left basilar effusion. Dictated by: Dictated on workstation # [id number]
[2018-07-26 16:06] LABS: ALLENS TEST YES-POS; INSPIRED O2 50%; PATIENT TEMP 98.9; VENTILATOR YES
[2018-07-26 16:11] LABS: ABG PH 7.33 (7.37-7.43)
[2018-07-26] MEDS: PIPERACILLIN/TAZOBACTAM (BULK) 4.5 GM in NS (IVPB) 100 ML IV SCH (16:31)
--- NOTE | 2018-07-26 16:50 | NUR ---
BP READING 71/40, CUFF READJUSTED AND TAKEN AGAIN-NEXT READING 85/58. PROPOFOL DECREASED FROM 30MCG TO 20MCG (SEE IV SPREADSHEET FOR DETAILS). DR MOJICA NOTIFIED, NEW ORDERS RECEIVED TO GIVE 500ML LR BOLUS AND INCREASE IVF TO 200ML/HR.
[2018-07-26] MEDS ORDERED: LACTATED RINGERS 1,000 ML IV NR (17:00)
--- NOTE | 2018-07-26 17:26 | Diagnostic Imaging Report ---
Indication: Cholecystectomy. Comparison: CT dated 07/25/2018. Total fluoroscopy time: 20.5 seconds. Findings: Multiple intraoperative image intensifier and digital subtraction images of the right upper abdominal quadrant were obtained during intraoperative cholangiogram. Images provided show contrast filling the intrahepatic and extrahepatic biliary ductal systems. There is no evidence of obstruction. No distinct intraluminal filling defects are identified. Please note, interpreting radiologist was not present during the procedure. Impression: Intraoperative cholangiogram, as described above. Dictated by: Dictated on workstation # [id number]
--- NOTE | 2018-07-26 18:03 | NUR ---
BP CONTINUES TO BE LOW AFTER LR 500ML BOLUS, DR MOJICA NOTIFIED. NEW ORDERS RECEIVED TO GIVE ADDITIONAL 1L LR OVER 1 HR.
[2018-07-26] MEDS ORDERED: LACTATED RINGERS 1,000 ML IV ONE (18:15)
--- NOTE | 2018-07-26 21:08 | NUR ---
40 ML OF URINE OUTPUT NOTED SINCE 1721. E-ICU NOTIFIED.
--- NOTE | 2018-07-26 21:15 | NUR ---
NEW ORDER RECEIVED FROM E-ICU FOR 1 L NS BOLUS OVER TWO HOURS.
[2018-07-26] MEDS ORDERED: NS IV 1000 ML 1,000 ML ONE (21:21)
[2018-07-26] MEDS ORDERED: NS IV 1000 ML 1,000 ML IV ONE (22:00)
[2018-07-27] VITALS (27 sets, daily range): BP systolic 93–187; BP diastolic 61–111
[2018-07-27] MEDS: PIPERACILLIN/TAZOBACTAM (BULK) 4.5 GM in NS (IVPB) 100 ML IV SCH ×3 (00:47→17:05)
--- NOTE | 2018-07-27 01:18 | OPERATIVE REPORT ---
DATE OF SERVICE: PREOPERATIVE DIAGNOSES: Acute cholecystitis, cholelithiasis and acute pancreatitis. POSTOPERATIVE DIAGNOSES: 1. Acute cholecystitis, cholelithiasis and acute pancreatitis with possible necrotic gallbladder. 2. Saponification of surrounding tissue with some fat necrosis. 3. Fat necrosis of the falciform ligament. PROCEDURES PERFORMED: Laparoscopic cholecystectomy, intraoperative cholangiogram. SURGEON: Francisco Sun DO SHOOTER HELPER: Phil Christine DO ANESTHESIA: General endotracheal tube. SPECIMEN: Gallbladder and contents. BLOOD LOSS: Scant. FLUIDS: Per Anesthesia. POSTOPERATIVE CONDITION: Stable. INDICATION FOR PROCEDURE: The patient is a 77-year-old female, who came in with abdominal pain, elevated lipase and CAT scan which showed fluid around the gallbladder, thickened wall and some stones. Today, her white count jumped up and she was feeling worse, taken to the operating room. FINDINGS: The patient had what looked like a partially necrotic gallbladder, very large amount of edema around the gallbladder and then in the surrounding area, there was saponification and what looked like fat necrosis above the stomach and duodenum as well as all along the falciform ligament. PROCEDURE NOTE: After informed consent was obtained, the patient was brought to the operating room, placed on the table in supine position. She was sterilely prepped and draped in normal fashion. Local lidocaine was used to infiltrate the skin above the umbilicus. An incision was made with #11 blade, carried down through skin and subcutaneous tissue, deepened down to subcutaneous tissue with Bovie electrocautery down to fascia. Fascia was incised with Bovie electrocautery, bluntly entered into the abdomen, swept a finger around, placed #0 Vicryl [id number] suture and placed 11 mm trocar port under direct visualization, created pneumoperitoneum. I then placed two more ports in normal fashion using local lidocaine, 11 blade for stab incision and the VersaStep system, all done under direct visualization, one in subxiphoid and two in the right upper quadrant. Upon entry, noted a lot of adhesions and then what looked like necrotic fat and saponification of the entire falciform ligament. I took pictures of this. Able to grasp the gallbladder at the fundus and lifted up and there were adhesions. These were carefully taken down with Bovie electrocautery as well as some blunt dissection. I was then able to get down to Valeria's pouch and pulled in the inferolateral direction and start dissecting out cystic duct and cystic artery. I was able to get around the cystic duct and the cystic artery and placed 1 clip distally on the cystic duct and one distally and one proximally on the cystic artery, cut the cystic duct retirement through Metzenbaum scissors. Placed a cholangiogram catheter, shot a cholangiogram. Good spillage of dye down the common bile duct and into the small intestine as well as up into common hepatic and right and left hepatics. In the common bile duct just before dye went into the small intestine, looked like there was some almost like a stricture, we will wait for Radiology reading, but did not look like stones in the duct, almost more like apple core lesion. The cholangiogram catheter was removed, placed 2 clips proximally on the cystic duct and then cut the cystic duct and cystic artery with Metzenbaum scissors. Noted that the cystic artery was very small and had actually pulled under the clip. The clip pulled the bowel and I placed another clip on this and then encountered a posterior branch, which was much larger than the first one, clipped this twice proximally and once distally and then cut with Metzenbaum scissors. I then took the gallbladder from the bed of the liver with L-hook cautery. Once it was completely removed, placed a bag in the abdomen, then placed the gallbladder in the bag and then removed this through the supraumbilical incision. Placed the port back in the abdomen, copiously irrigated with normal saline, suctioned this out, took pictures of the necrosis and saponification, also took a piece of fibrinous material for culture. At this point, I then placed the patient supine, suctioned out all fluid. No bleeding from the bed of liver, no other obvious pathology and removed the scope and then removed all ports under direct visualization, allowed the pneumoperitoneum to escape as well as suctioned out. Closed supraumbilical incision with #0 Vicryl suture previously placed. Copiously irrigated all incisions with normal saline and closed the three small 5 mm incisions with single interrupted 4-0 undyed Monocryl subcuticular stitch, closed the supraumbilical incision with 3 interrupted 4-0 undyed Monocryl subcuticular stitches. Area was cleaned and dried. Dermabond and Band-Aids placed. The patient tolerated the procedure well. Sponge, instrument and needle count correct at the end of the case. She is still in the operating room and will be taken to the recovery room. Dr. Christine assisted by making incisions, closing incisons, helping to identify anatomy and hold anatomy out of the way. Job ID: [id number] DocumentID: [id number] Dictated Date: 07/26/2018 14:47:48 Icing Maker Date: 07/26/2018 20:35:27 Dictated By: DO GRETA GIBBS
[2018-07-27 02:42] LABS: BASOPHILS % (AUTO) 0 % (0-10); EOSINOPHILS % (AUTO) 0 % (0-10); HEMATOCRIT 24 % (35-52); HEMOGLOBIN 7.5 G/DL (11.5-16.0); LYMPHOCYTES # (AUTO) 0.8 X 10^3 (1.0-4.0); LYMPHOCYTES % (AUTO) 4 % (12-44); MEAN CORPUSCULAR HEMOGLOBIN 29 PG (25-34); MEAN CORPUSCULAR HGB CONC 32 G/DL (32-36); MEAN CORPUSCULAR VOLUME 90 FL (80-99); MEAN PLATELET VOLUME 10.7 FL (7.4-10.4); MONOCYTES # (AUTO) 1.1 X 10^3 (0.0-1.0); MONOCYTES % (AUTO) 6 % (0-12); NEUTROPHILS # (AUTO) 17.1 X 10^3 (1.8-7.8); NEUTROPHILS % (AUTO) 90 % (42-75); PLATELET COUNT 165 10^3/uL (130-400); RED CELL DISTRIBUTION WIDTH 14.1 % (10.0-14.5)
[2018-07-27] MEDS: NS W/KCL 20 MEQ/L 1,000 ML IV SCH ×4 (02:42→23:51)
[2018-07-27 02:43] LABS: ABG BASE EXCESS -3.8 MMOL/L (-2.5-2.5); ABG OXYGEN SATURATION 99 % (94-100); ABG PCO2 38 MMHG (35-45); ABG PH 7.36 (7.37-7.43); ABG PO2 97 MMHG (79-93); ABG TCO2 22.1 MMOL/L (21.0-31.0)
[2018-07-27 02:44] LABS: ALLENS TEST YES-POS; INSPIRED O2 40%; PATIENT TEMP 97.6; VENTILATOR YES
[2018-07-27 02:58] LABS: CALCIUM 7.9 MG/DL (8.5-10.1); CREATININE SERUM 1.13 MG/DL (0.60-1.30); MAGNESIUM 1.2 MG/DL (1.8-2.4); POTASSIUM 4.5 MMOL/L (3.6-5.0)
[2018-07-27] MEDS: POTASSIUM CL 10MEQ/50ML IVPB 50 ML IV SCH (03:11)
[2018-07-27] MEDS: MAGNESIUM 1 GM/100 ML IVPB 100 ML IV SCH ×5 (03:12→10:00)
[2018-07-27] MEDS: KCL 20 MEQ TAB (K-DUR) PO SCH (03:12)
--- NOTE | 2018-07-27 04:23 | Pulmonary Consultation ---
History of Present Illness History of Present Illness Date of Consultation 07/27/18 04:18 Time Seen by Provider: 04:18 Date of Admission Reason for Visit: tachycardia History of Present Illness 77yo presented to ED secondary to severe abdominal pain after eating dinner. No N/V or melena. Symptoms progressed to worsening SOB, and tachycardia. PT was taken to surgery for cholecystectomy. Post surgery pt did not tolerate extubation secondary to tachycardia and hypoxia. Pt was reintubated prior to leaving surgery area. Pt currently is sedated on Vent doing well with 35% oxygen. Allergies and Home Medications Allergies Coded Allergies: Fvtgteu-Raj-Ric Reductase Inhibitor (Verified Allergy, Unknown, 07/25/18) Sulfa (Sulfonamide Antibiotics) (Verified Allergy, Unknown, 07/25/18) codeine (Verified Allergy, Unknown, 07/25/18) lisinopril (Verified Allergy, Unknown, 07/25/18) Home Medications Anastrozole 1 Mg Tablet, 1 MG PO DAILY, (Reported) Ascorbate Calcium 500 Mg Tablet, 500 MG PO DAILY, (Reported) Aspirin 81 Mg Tablet.dr, 81 MG PO DAILY, (Reported) Atorvastatin Calcium 80 Mg Tablet, 80 MG PO HS, (Reported) Esomeprazole Magnesium 40 Mg Capsule.dr, 40 MG PO DAILY, (Reported) Metoprolol Succinate 100 Mg Tab.er.24h, 100 MG PO DAILY, (Reported) Multivitamin 1 Each Tablet, 1 TAB PO DAILY, (Reported) Oxycodone HCl/Acetaminophen 1 Each Tablet, 1 TAB PO TID PRN for PAIN-MODERATE, (Reported) Potassium Chloride 10 Meq Tablet.er, 10 MEQ PO BID, (Reported) Pramipexole Di-HCl 0.5 Mg Tablet, 0.5 MG PO HS PRN for RESTLESSNESS, (Reported) Triamterene/Hydrochlorothiazid 1 Each Tablet, 1 TAB PO DAILY, (Reported) Vitamin B Complex 1 Each Tablet, 1 TAB PO DAILY, (Reported) Past Plyeuzg-Mwajlb-Uildfw Hx Patient Social History Alcohol Use: Denies Use Recreational Drug Use: No Smoking Status: Never a Smoker 2nd Hand Smoke Exposure: No Recent Foreign Travel: No Contact w/Someone Who Travel: No Recent Infectious Disease Expo: No Recent Hopitalizations: No Physical Abuse: No Sexual Abuse: No Mistreated: No Fear: No Immunizations Up To Date Date of Pneumonia Vaccine: Jul 25, 2008 Seasonal Allergies Seasonal Allergies: No Past Medical History Surgeries: Yes Breast Respiratory: No Cardiac: Yes High Cholesterol, Hypertension Neurological: Yes Neuropathy Genitourinary: No Gastrointestinal: Yes Diverticulosis, Hiatal Hernia Musculoskeletal: Yes Arthritis Endocrine: Yes Hypothyroidsim HEENT: No Cancer: Yes Breast, Thyroid, Kidney Psychosocial: No Integumentary: No Blood Disorders: No Family Medical History Alcoholism 19 MOTHER Arthritis G8 BROTHER G8 SISTER Asthma 19 FATHER G8 SISTER Cataracts G8 SISTER Completed stroke G8 BROTHER Diabetes mellitus G8 BROTHER Hypertension 19 MOTHER Kidney disease G8 SISTER Respiratory disorder G8 BROTHER Asthma, Cancer, COPD, Hypertension Review of Systems Time Seen by Provider: 04:37 Sepsis Event Evaluation Height, Weight, BMI Height: 5'2.00" Weight: 175lbs. 0.0oz. 79.163733ui; 32.0 BMI Method:Stated Exam Exam Vital Signs Date Time Temp Pulse Resp B/P (MAP) Pulse Ox O2 Delivery O2 Flow Rate FiO2 07/27/18 04:00 97 19 122/68 (86) 97 Mechanical Ventilator 30.00 07/27/18 04:00 97.6 07/27/18 03:00 99 17 108/74 (85) 97 Mechanical Ventilator 30.00 07/27/18 02:57 99 17 98 40 07/27/18 02:00 100 16 93/69 (77) 97 Mechanical Ventilator 40.00 07/27/18 01:00 101 16 100/73 (82) 97 Mechanical Ventilator 40.00 07/27/18 01:00 101 07/27/18 00:00 97.8 07/27/18 00:00 101 16 93/62 (72) 98 Mechanical Ventilator 40.00 07/27/18 00:00 Mechanical Ventilator 40.00 07/26/18 23:26 Mechanical Ventilator 40.00 07/26/18 23:10 100 18 98 45 07/26/18 23:00 112 19 113/82 (92) 100 Mechanical Ventilator 45.00 07/26/18 22:30 98.0 07/26/18 22:00 117 18 93/70 (78) 98 Mechanical Ventilator 45.00 07/26/18 21:17 97.7 115 20 98/74 99 Mechanical Ventilator 45.00 07/26/18 21:00 115 20 98/74 (82) 99 Mechanical Ventilator 45.00 07/26/18 20:00 Mechanical Ventilator 45.00 07/26/18 20:00 110 16 91/67 (75) 99 Mechanical Ventilator 45.00 07/26/18 19:51 97.7 110 18 92/67 (75) 99 Mechanical Ventilator 45.00 07/26/18 19:00 101 07/26/18 19:00 103 16 118/72 (87) 100 Mechanical Ventilator 45.00 07/26/18 19:00 103 07/26/18 18:52 100 16 100 50 07/26/18 18:00 99 17 71/44 (53) 99 Mechanical Ventilator 50.00 07/26/18 17:00 107 16 72/54 (60) 97 Mechanical Ventilator 50.00 07/26/18 16:05 149/79 07/26/18 16:00 Mechanical Ventilator 50.00 07/26/18 16:00 109 20 148/77 (100) 96 Mechanical Ventilator 50.00 07/26/18 15:59 98.4 07/26/18 15:45 97.6 14 96 Mechanical Ventilator 07/26/18 15:42 112 23 96 50 07/26/18 15:40 14 95 Mechanical Ventilator 07/26/18 15:30 14 96 Mechanical Ventilator 07/26/18 15:20 14 95 Mechanical Ventilator 07/26/18 15:08 97.4 14 100 Mechanical Ventilator 07/26/18 12:00 99.5 101 26 129/62 (84) 92 Room Air 07/26/18 08:00 100.1 147 28 126/75 (92) 90 Room Air 07/26/18 08:00 90 Room Air 07/26/18 04:59 99.8 122 28 155/83 (107) 91 Room Air I & O 07/27/18 07:00 Intake Total 6840 ml Output Total 775 ml Balance 6065 ml Height & Weight Height: 5'2.00" Weight: 175lbs. 0.0oz. 79.807177ez; 32.0 BMI Method:Stated General Appearance: WD/WN, Moderate Distress, Other (sedated on vent) HEENT: PERRL/EOMI, TMs Normal, Normal ENT Inspection, Pharynx Normal, Moist Mucous Membranes Neck: Full Range of Motion, Normal Inspection, Non Tender, Supple, Carotid Bruit Respiratory: Chest Non Tender, Normal Breath Sounds, No Accessory Muscle Use, No Respiratory Distress Cardiovascular: No Edema, No Gallop, No JVD, No Murmur, Normal Peripheral Pulses, Systolic Murmur, Tachycardia Capillary Refill: Less Than 3 Seconds Gastrointestinal: normal bowel sounds, soft, no organomegaly, tenderness (RUQ) Extremity: Normal Capillary Refill, Normal Inspection, Normal Range of Motion, Non Tender, No Calf Tenderness, No Pedal Edema Skin: Normal Color, Warm/Dry Lymphatic: No Adenopathy Results Lab Laboratory Tests 07/25/18 04:40 07/26/18 05:30 07/27/18 02:30 Assessment/Plan Assessment/Plan Acute respiratory failure -Pt was reintubated after surgery secondary to acute distress -Will wake up and attempt extubation -Update -- Pt self extubated during wake up period. will place her on Vapotherm for now. -CXR reviewed. Acute cholecystitis s/p surgery -Surgery following -Continue Zosyn -Await hodges cultures Metabolic acidosis -Check lactic acid Acute pancreatitis -IVF -Repeat amylase, lipase Hypomag -replace Hypotension during the night with decreased UO -Will transfuse 1 unit of PRBC -IVF pt has had 2.5liter bolus of IVF -IVF currently going at 200cc/hr Sinus tachycardia monitor -IVF CLARISSA CHEN DO Jul 27, 2018 04:23
--- NOTE | 2018-07-27 04:51 | NUR ---
0430: DR. CHEN IN TO SEE PT AT THIS TIME. ORDER RECEIVED TO SHUT PROPOFOL OFF AND WAKE PT UP FOR EXTUBATION. R/T NOTIFIED OF NEW ORDERS. AND PROPOFOL TURNED OFF. 0440: THIS RN RESPONDED TO PT'S VENT ALARM SOUNDING; PT SELF EXTUBATED. R/T AND DR. CHEN TO BEDSIDE. PT SUCTIONED AND PLACED ON VAPOTHERM AT THIS TIME; 40 L AND 45% FIO2.
[2018-07-27 05:02] LABS: AMYLASE 55 U/L (25-125); LIPASE 25 U/L (8-78); TRIGLYCERIDES 173 MG/DL (<150)
[2018-07-27] MEDS ORDERED: NS IV 500 ML 500 ML ONE (07:42)
[2018-07-27] MEDS: PANTOPRAZOLE 40 MG (PROTONIX) VIAL IV SCH (08:00)
--- NOTE | 2018-07-27 09:02 | Progress Note (SOAP) ---
Subjective Subjective/Events-last exam Apparently patient extubated herself this morning. She is communicating fairly well. She does have a slight cough with discomfort at the incisional site from cholecystectomy. Review of Systems Date Seen by Provider: Jul 27, 2018 Time Seen by Provider: 07:10 Focused Exam Lactate Level 07/25/18 10:27: Lactic Acid Level 3.38*H 07/26/18 11:02: Lactic Acid Level 0.92 07/27/18 05:15: Lactic Acid Level 1.23 Lactic Acid Level Laboratory Tests Test 07/27/18 05:15 Lactic Acid Level 1.23 MMOL/L (0.50-2.00) Objective Exam Last Set of Vital Signs Vital Signs Date Time Temp Pulse Resp B/P (MAP) Pulse Ox O2 Delivery O2 Flow Rate FiO2 07/27/18 08:00 103 38 143/81 (101) 99 Vapotherm 45.00 40.00 07/27/18 04:36 45 07/27/18 04:00 97.6 Capillary Refill : Less Than 3 Seconds I&O Intake and Output 07/27/18 00:00 Intake Total 5840 ml Output Total 1165 ml Balance 4675 ml Intake Oral 0 ml IV Total 5840 ml Output Urine Total 1140 ml Gastric Drainage Total 25 ml # Voids 2 General: Mild Distress (Especially with movement or cough) Lungs: Clear to Auscultation Heart: Regular Rate Abdomen: Other (Dressing in place) Results/Procedures Lab Laboratory Tests 07/26/18 11:02: Lactic Acid Level 0.92, B-Type Natriuretic Peptide 88.7 07/26/18 15:57: Blood Gas Puncture Site R RAD, Blood Gas Patient Temperature 98.9, Arterial Blood pH 7.33*L, Arterial Blood Partial Pressure CO2 47H, Arterial Blood Partial Pressure O2 75L, Arterial Blood HCO3 24, Arterial Blood Total CO2 25.4, Arterial Blood Oxygen Saturation 96, Arterial Blood Base Excess -1.2, Sachin Test YES-POS, Blood Gas Ventilator Setting YES, Blood Gas Inspired Oxygen 50% 07/27/18 02:30: White Blood Count 19.0H, Red Blood Count 2.61L, Hemoglobin 7.5#L, Hematocrit 24L , Mean Corpuscular Volume 90, Mean Corpuscular Hemoglobin 29, Mean Corpuscular Hemoglobin Concent 32, Red Cell Distribution Width 14.1, Platelet Count 165, Mean Platelet Volume 10.7H, Neutrophils (%) (Auto) 90H, Lymphocytes (%) (Auto) 4L, Monocytes (%) (Auto) 6, Eosinophils (%) (Auto) 0, Basophils (%) (Auto) 0, Neutrophils # (Auto) 17.1H, Lymphocytes # (Auto) 0.8L, Monocytes # (Auto) 1.1H, Eosinophils # (Auto) 0.0, Basophils # (Auto) 0.0, Sodium Level 144, Potassium Level 4.5, Chloride Level 117H, Carbon Dioxide Level 20L, Anion Gap 7, Blood Urea Nitrogen 23H, Creatinine 1.13, Estimat Glomerular Filtration Rate 47, BUN/Creatinine Ratio 20, Glucose Level 153H, Calcium Level 7.9L, Magnesium Level 1.2L, Triglycerides Level 173H, Amylase Level 55, Lipase 25 07/27/18 02:40: Blood Gas Puncture Site LEFT RADIAL, Blood Gas Patient Temperature 97.6, Arterial Blood pH 7.36L, Arterial Blood Partial Pressure CO2 38, Arterial Blood Partial Pressure O2 97H, Arterial Blood HCO3 21L, Arterial Blood Total CO2 22.1, Arterial Blood Oxygen Saturation 99, Arterial Blood Base Excess -3.8L, Sachin Test YES-POS, Blood Gas Ventilator Setting YES, Blood Gas Inspired Oxygen 40% 07/27/18 05:15: Lactic Acid Level 1.23 Microbiology 07/25/18 Blood Culture - Preliminary, Resulted No growth 07/25/18 Urine Culture - Preliminary, Resulted Escherichia coli Enterococcus faecalis 07/26/18 Gram Stain - Final, Resulted 07/26/18 Anaerobic Culture, Resulted Pending 07/26/18 Surgical Culture, Resulted Pending Assessment/Plan Assessment/Plan (1) Cholecystitis, acute with cholelithiasis Status: Acute Assessment & Plan: - Dr Sun managing Qualifiers: Qualified Codes: K80.01 - Calculus of gallbladder with acute cholecystitis with obstruction (2) Pancreatitis due to biliary obstruction Status: Acute Qualifiers: Qualified Codes: K85.10 - Biliary acute pancreatitis without necrosis or infection (3) Shortness of breath Status: Acute Assessment & Plan: - Normal saturations but patient is tachycardic, decreased IVFs 75, BNP pending, ECG pending (4) Tachyarrhythmia Status: Acute Assessment & Plan: - ECG pending, Labetalol given, Cardiology consulted for surgical clearance 07/27: Patient still slightly tachycardia status post surgery cholecystectomy (5) Lactic acid acidosis Status: Acute Assessment & Plan: - Repeat LA pending (6) Anemia Status: Acute Assessment & Plan: Patient's hemoglobin yesterday compared today went from 12.3-7.5. Most likely this is surgical blood loss. Will need to check with surgeon to ensure this is the case. She seems to be very stable clinically with regard to her hemoglobin of 7.5. Continue to monitor hemoglobin daily. Clinical Quality Measures DVT/VTE Risk/Contraindication: Risk Factor Score Per Nursin RFS Level Per Nursing on Admit: 4+=Very High JOHNNIE ORTIZ MD Jul 27, 2018 09:02
--- NOTE | 2018-07-27 09:03 | Occ Therapy Progress Note ---
Therapy Progress Note OT orders received. Chart reviewed. Pt. underwent surgery for cholecystecomy on 07-26-18. Pt. currently sedated and on vent. Unable to evaluate for skilled treatment at this time. Will continue to monitor this pt. [id number] HALLEY BURKS OT Jul 27, 2018 09:03
--- NOTE | 2018-07-27 09:36 | Diagnostic Imaging Report ---
INDICATION: Intubation. Exam compared 07/26/2018. FINDINGS: ET tube above the sahra. OG catheter in the stomach. Right IJ at the SVC. There is a tiny left pleural effusion decreased. Lungs clear. IMPRESSION: Support apparatus in good alignment. Tiny left pleural effusion nearly resolved. Clear lungs. No adverse development. Dictated by: Dictated on workstation # [id number]
[2018-07-27] MEDS: fentaNYL INJECTION 100 MCG/2 ML AMP IV PRN (09:59)
--- NOTE | 2018-07-27 11:08 | Occupational Therapy Eval ---
OT Evaluation-General/PLF Medical Diagnosis Admission Date Jul 25, 2018 at 08:00 Medical Diagnosis: Cholectystectomy, tachyarrhythmia Onset Date: Jul 25, 2018 Therapy Diagnosis Therapy Diagnosis: Decreased ADL skills Height/Weight Height (Feet): 5 Height (Inches): 2.00 Weight (Pounds): 175 Weight (Ounces): 0.0 Precautions Precautions/Isolations: Fall Prevention, Standard Precautions Safety Interventions: Bed Exit Alarm, Reorient-PRN Comments Pt. now has sitter in room. Weight Bear Status Weight Bearing Restriction: Weight Bearing/Tolerated Referral Physician: Dr. Sun Referral Reason: Activity Tolerance, Self Care, Evaluation/Treatment, Strengthening/ROM Medical History Pertinent Medical History: GERD, HTN Additional Medical History Neuropathy Current History Pt. had surgery yesterday for cholecystectomy. Declined medically and was transferred to ICU. Pt. put on vent and sedated. It was reported to this therapist that pt. had extubated self, and that she was appropriate per nursing for treatment. Nursing confirmed this to OT. Reviewed History: Yes Social History Home: Single Level Current Living Status: Alone Entry Into Home: Stairs With Railing Steps Into Home: 3 ADL-Prior Level of Function Therapy Code Descriptions/Definitions Functional [place] Measure: 0=Not Assessed/NA 4=Minimal Assistance 1=Total Assistance 5=Supervision or Setup 2=Maximal Assistance 6=Modified [place] 3=Moderate Assistance 7=Complete [place] Therapy Quality Codes: 6 Independent with activity with or without an assistive device 5 Patient requires set up or clean up by helper. Patient completes activity by themselves 4 Supervision or touching assist (CGA). [place] provide cues , steadying assist 3 The helper provides less than half the effort to complete the activity 2 The helper provides more than half the effort to complete the activity 1 Dependent. The helper does all the effort to complete an activity 7 Patient refused to complete or attempt activity 9 The patient did not perform the activity before the current illness or injury 88 Not attempted due to Medical conditions or safety concerns Functional Abilities and Goals: Independent: Patient completed the activities by him/herself, with or without an assistive device, with no assistance from a helper. Needed Some Help: Patient needed partial assistance from another person to complete activities. Dependent: A helper completed the activities for the patient. Unknown: Not Applicable: ADL PLOF Comments Pt. states that she is able to bathe and dress herself, but that she has a caregiver 3x/wk, 3 hours per day. She states that they cook, clean, and do laundry for her. Self Care: Needed Some Help Functional Cognition: Unknown DME/Equipment Comments Pt. reports that she does not use a walker or cane. Drive Self: No OT Current Status Subjective Pt. requires cues to stay on task. She reports that she is having pain in her stomach, but does not state pain level. Pt. is unaware that she was on a ventilator or that she extubated self. Appearance Pt. is up in chair. PT has just assisted her. States that she would like to stay in chair. Mental Status/Objective Patient Orientation: Confused Attachments: IV, Oxygen, Telemetry Current Upper Extremity ROM WFL ADL-Treatment Therapy Code Descriptions/Definitions Functional [place] Measure: 0=Not Assessed/NA 4=Minimal Assistance 1=Total Assistance 5=Supervision or Setup 2=Maximal Assistance 6=Modified [place] 3=Moderate Assistance 7=Complete [place] Therapy Quality Codes: 6 Independent with activity with or without an assistive device 5 Patient requires set up or clean up by helper. Patient completes activity by themselves 4 Supervision or touching assist (CGA). [place] provide cues , steadying assist 3 The helper provides less than half the effort to complete the activity 2 The helper provides more than half the effort to complete the activity 1 Dependent. The helper does all the effort to complete an activity 7 Patient refused to complete or attempt activity 9 The patient did not perform the activity before the current illness or injury 88 Not attempted due to Medical conditions or safety concerns Grooming (FIM): 3 (Pt. is able to brush teeth with cues and increased time. Pt. seems to perseverate on brushing teeth and requires cues to stop that activity. Pt. does wash hands and face with warm washcloth. Pt. is afraid to brush her hair due to multiple lines and tubes, and so OT does this for her.) Lower Body Dressing (FIM): 1 Pt. has had multiple medical changes in last 24 hours. Pt. participates but requires cues to sequence and stay on task. Due to multiple lines and tubes, pt. is afraid of bringing hands up to head to brush hair. Pt. unable to reach her feet, and seems confused as to why her abdomen hurts. A sitter was brought in for pt's safety at end of OT session. All needs were met. Education OT Patient Education: Correct positioning, Modified ADL techniques, Progress toward Goal/Update tx plan, Purpose of tx/functional activities, Reviewed precautions, Rehab process Teaching Recipient: Patient Teaching Methods: Demonstration, Discussion Response to Teaching: Verbalize Understanding, Return Demonstration OT Short Term Goals Short Term Goals Time Frame: Aug 03, 2018 Eating(FIM): 4 Grooming(FIM): 4 Bathing(FIM): 3 Upper Body Dressing(FIM): 4 Lower Body Dressing(FIM): 3 Toileting(FIM): 4 Transfers (B,C,W/C) (FIM): 4 Toilet/Commode Transfer(FIM): 4 Additional Short Term Goals: 1-Demonstrate ADL Tasks, 2-Verbalize Understanding, 3-ImproveStrength/[place]atiana 1=Demonstrate adherence to instructed precautions during ADL tasks. 2=Patient will verbalize/demonstrate understanding of assistive dev ices/modifications for ADL. 3=Patient will improve strength/tolerance for activity to enable patient to perform ADL's. OT Care Home Goals Care Home Goals Time Frame: Aug 10, 2018 Eating (FIM): 6 Grooming(FIM): 5 Bathing(FIM): 4 Upper Body Dressing(FIM): 5 Lower Body Dressing(FIM): 5 Toileting(FIM): 6 Transfers (B,C,W/C) (FIM): 6 Toilet/Commode Transfer(FIM): 6 Shower Transfer(FIM): 5 Additional Goals: 1-Demonstrate ADL Tasks, 2-Verbalize Understanding, 3- ImproveStrength/Tatiana 1=Demonstrate adherence to instructed precautions during ADL tasks. 2=Patient will verbalize/demonstrate understanding of assistive devices/modifications for ADL. 3=Patient will improve strength/tolerance for activity to enable patient to perform ADL's. OT Education/Plan Problem List/Assessment Assessment: Decreased Activ Tolerance, Dependent Transfers, Impaired Cognition, Impaired I ADL's, Impaired Self-Care Skills Discharge Recommendations Plan/Recommendations: Continue POC Comment Discharge location and equipment needs to be determined. Treatment Plan/Plan of Care Treatment,Training & Education: Yes Patient would benefit from OT for education, treatment and training to promote independence in ADL's, mobility, safety and/or upper extremity function for ADL's. Plan of Care: ADL Retraining, Caregiver Training, Functional Mobility, UE Funct Exercise/Act Treatment Duration: Aug 10, 2018 Frequency: 5 times per week Estimated Hrs Per Day: .25 hour per day Agreement: Yes Rehab Potential: Fair Time/GCodes Start Time: 10:00 Stop Time: 10:25 Total Time Billed (hr/min): 25 Billed Treatment Time 1, EVH x 10minutes, ADL x 15minutes HALLEY BURKS OT Jul 27, 2018 11:08
--- NOTE | 2018-07-27 11:35 | Physical Therapy Evaluation ---
PT Evaluation-General Medical Diagnosis Admission Date Jul 25, 2018 at 08:00 Medical Diagnosis: Cholectystectomy, tachyarrhythmia Onset Date: Jul 25, 2018 Therapy Diagnosis Therapy Diagnosis: decreased mobility Height/Weight Height (Feet): 5 Height (Inches): 2.00 Weight (Pounds): 175 Weight (Ounces): 0.0 Precautions Precautions/Isolations: Fall Prevention, Standard Precautions Referral Physician: Dr. Sun Reason for Referral: Evaluation/Treatment Medical History Pertinent Medical History: GERD, HTN Current History Pt. underwent cholecystectomy 07/26/18, intubated and sedated due to acute respiratory distress following procedure. Reviewed History: Yes Social History Home: Single Level Current Living Status: Alone Entry Into Home: Stairs With Railing PT Steps Into Home: 3 Prior/Core FIM Prior Level of Function Therapy Code Descriptions/Definitions Functional [place] Measure: 0=Not Assessed/NA 4=Minimal Assistance 1=Total Assistance 5=Supervision or Setup 2=Maximal Assistance 6=Modified [place] 3=Moderate Assistance 7=Complete [place] Therapy Quality Codes: 6 Independent with activity with or without an assistive device 5 Patient requires set up or clean up by helper. Patient completes activity by themselves 4 Supervision or touching assist (CGA). [place] provide cues , steadying assist 3 The helper provides less than half the effort to complete the activity 2 The helper provides more than half the effort to complete the activity 1 Dependent. The helper does all the effort to complete an activity 7 Patient refused to complete or attempt activity 9 The patient did not perform the activity before the current illness or injury 88 Not attempted due to Medical conditions or safety concerns Functional Abilities and Goals: Independent: Patient completed the activities by him/herself, with or without an assistive device, with no assistance from a helper. Needed Some Help: Patient needed partial assistance from another person to complete activities. Dependent: A helper completed the activities for the patient. Unknown: Not Applicable: Bed Mobility: 7 Transfers (B,C,W/C) (FIM): 7 Gait: 7 PT Evaluation-Current Subjective Pt. in bed, says "I just can't" to therapy but agrees to sit up in chair following encouragement from therapist. During session, patient c/o R-sided abdominal pain, does not give objective pain rating. Pt/Family Goals home Objective Patient Orientation: Person, Place, Time, Situation Problem Solving: Good Attachments: Oxygen, Osei Catheter, IV ROM/Strength ROM Upper Extremities See OT ROM Lower Extremities WNL (B) Strength Upper Extremities See OT Strength Lower Extremities Grossly 4/5 (B) Integumentary/Posture Integumentary see nursing notes Bowel Incontinence: No Bladder Incontinence: Osei Cath Posture kyphotic posture Neuromuscular (Tone, Coordination, Reflexes) unremarkable Sensory Vision: Functional Hearing: Functional Sensation Right Upper Extremit: Intact Sensation Left Upper Extremity: Intact Sensation Right Lower Extremit: Intact Sensation Left Lower Extremity: Intact Transfers Therapy Code Descriptions/Definitions Functional [place] Measure: 0=Not Assessed/NA 4=Minimal Assistance 1=Total Assistance 5=Supervision or Setup 2=Maximal Assistance 6=Modified [place] 3=Moderate Assistance 7=Complete [place] Transfers (B, C, W/C) (FIM): 1 Supine to/from Sit: 1 Sit to/from Stand: 2 bed to chair transfer: max A Gait Anticipated Mode of Locomotion: Walk Balance Sitting Static: Good Sitting Dynamic: Fair Standing Static: Fair Standing Dynamic: Fair Treatment transfers Assessment/Needs Pt. is a 77 y.o. female s/p cholecystectomy who presents with decreased mobility. Pt. currently requires max A with transfers and c/o abdominal pain during session. Pt. would benefit from skilled PT to improve mobility for return home (I). Rehab Potential: Good PT Short Term Goals Short Term Goals Transfers (B,C,W/C) (FIM): 4 PT Half-Way Goals Half-Way Goals PT Half-Way Goals Time Frame: Aug 03, 2018 Transfers (B,C,W/C) (FIM): 6 Gait (FIM): 6 Gait distance (FIM): 3=150 ft Distance: 150 ft Gait Level of Assist: 6 Gait Assistive Device: None, FWW PT Plan Problem List Problem List: Activity Tolerance, Functional Strength, Safety, Balance, Gait, Transfer, Bed Mobility Treatment/Plan Treatment Plan: Continue Plan of Care Treatment Plan: Bed Mobility, Education, Functional Activity Tatiana, Functional Strength, Gait, Safety, Therapeutic Exercise, Transfers Treatment Duration: Aug 03, 2018 Frequency: 6 times per week Estimated Hrs Per Day: .5 hour per day Patient and/or Family Agrees t: Yes Time/GCodes Time In: 848 Time Out: 905 Total Billed Treatment Time: 17 Total Billed Treatment 1, [facility] 17' ZENAIDA OSHEA PT Jul 27, 2018 11:35
--- NOTE | 2018-07-27 13:26 | Progress Note ---
Subjective Time Seen by a Provider: 13:01 Subjective/Events-last exam Pt seen and examined, events of this am noted. Pt is sitting up, eating ice chips and doesn't appear to be in acute distress. She does state she has pain across the upper abdomen. Review of Systems Pulmonary: No Dyspnea, No Cough Cardiovascular: No: Chest Pain, Palpitations Gastrointestinal: Abdominal Pain; No: Nausea, Vomiting Focused Exam Lactate Level 07/25/18 10:27: Lactic Acid Level 3.38*H 07/26/18 11:02: Lactic Acid Level 0.92 07/27/18 05:15: Lactic Acid Level 1.23 Objective Exam Vital Signs Date Time Temp Pulse Resp B/P (MAP) Pulse Ox O2 Delivery O2 Flow Rate FiO2 07/27/18 13:00 112 32 187/104 (131) 100 Vapotherm 45.00 40.00 07/27/18 12:40 108 07/27/18 12:30 98.2 101 32 181/96 100 Vapotherm 07/27/18 12:00 101 26 169/110 (129) 100 Vapotherm 45.00 40.00 07/27/18 12:00 98.4 101 26 173/90 100 Vapotherm 07/27/18 12:00 Vapotherm 40.00 50 07/27/18 11:45 98.7 07/27/18 11:44 98.4 105 30 165/91 100 Vapotherm 40.00 50 07/27/18 11:00 117 23 159/96 (117) 100 Vapotherm 45.00 40.00 07/27/18 10:00 115 13 145/81 (102) 96 Vapotherm 45.00 40.00 07/27/18 09:36 95 Vapotherm 40.00 50 07/27/18 09:00 135 16 147/111 (123) 98 Vapotherm 45.00 40.00 07/27/18 08:00 Vapotherm 40.00 50 07/27/18 08:00 103 38 143/81 (101) 99 Vapotherm 45.00 40.00 07/27/18 07:00 105 17 137/76 (96) 99 Vapotherm 45.00 40.00 07/27/18 07:00 108 07/27/18 06:00 93 Vapotherm 40.00 45 07/27/18 06:00 113 30 137/80 (99) 93 Vapotherm 45.00 40.00 07/27/18 05:00 112 18 142/90 (107) 97 Vapotherm 45.00 40.00 07/27/18 04:36 93 Vapotherm 40.00 45 07/27/18 04:36 Vapotherm 45.00 40.00 07/27/18 04:00 97 19 122/68 (86) 97 Mechanical Ventilator 30.00 07/27/18 04:00 Mechanical Ventilator 35.00 07/27/18 04:00 97.6 07/27/18 03:00 99 17 108/74 (85) 97 Mechanical Ventilator 30.00 07/27/18 02:57 99 17 98 40 07/27/18 02:00 100 16 93/69 (77) 97 Mechanical Ventilator 40.00 07/27/18 01:00 101 16 100/73 (82) 97 Mechanical Ventilator 40.00 07/27/18 01:00 101 07/27/18 00:00 97.8 07/27/18 00:00 101 16 93/62 (72) 98 Mechanical Ventilator 40.00 07/27/18 00:00 Mechanical Ventilator 40.00 07/26/18 23:26 Mechanical Ventilator 40.00 07/26/18 23:10 100 18 98 45 07/26/18 23:00 112 19 113/82 (92) 100 Mechanical Ventilator 45.00 07/26/18 22:30 98.0 07/26/18 22:00 117 18 93/70 (78) 98 Mechanical Ventilator 45.00 07/26/18 21:17 97.7 115 20 98/74 99 Mechanical Ventilator 45.00 07/26/18 21:00 115 20 98/74 (82) 99 Mechanical Ventilator 45.00 07/26/18 20:00 Mechanical Ventilator 45.00 07/26/18 20:00 110 16 91/67 (75) 99 Mechanical Ventilator 45.00 07/26/18 19:51 97.7 110 18 92/67 (75) 99 Mechanical Ventilator 45.00 07/26/18 19:00 101 07/26/18 19:00 103 16 118/72 (87) 100 Mechanical Ventilator 45.00 07/26/18 19:00 103 07/26/18 18:52 100 16 100 50 07/26/18 18:00 99 17 71/44 (53) 99 Mechanical Ventilator 50.00 07/26/18 17:00 107 16 72/54 (60) 97 Mechanical Ventilator 50.00 07/26/18 16:05 149/79 07/26/18 16:00 Mechanical Ventilator 50.00 07/26/18 16:00 109 20 148/77 (100) 96 Mechanical Ventilator 50.00 07/26/18 15:59 98.4 07/26/18 15:45 97.6 14 96 Mechanical Ventilator 07/26/18 15:42 112 23 96 50 07/26/18 15:40 14 95 Mechanical Ventilator 07/26/18 15:30 14 96 Mechanical Ventilator 07/26/18 15:20 14 95 Mechanical Ventilator 07/26/18 15:08 97.4 14 100 Mechanical Ventilator I & O 07/27/18 07:00 Intake Total 7040 ml Output Total 925 ml Balance 6115 ml Capillary Refill : Less Than 3 Seconds General Appearance: WD/WN, Mild Distress HEENT: PERRL/EOMI, Moist Mucous Membranes Neck: Carotid Bruit Respiratory: Chest Non Tender, Normal Breath Sounds, No Accessory Muscle Use, No Respiratory Distress Cardiovascular: No Murmur, Systolic Murmur, Tachycardia Gastrointestinal: normal bowel sounds, soft, no organomegaly, tenderness (across upper abdomen) Extremity: No Calf Tenderness, No Pedal Edema Results Lab Laboratory Tests 07/26/18 15:57: Blood Gas Puncture Site R RAD, Blood Gas Patient Temperature 98.9, Arterial Blood pH 7.33*L, Arterial Blood Partial Pressure CO2 47H, Arterial Blood Partial Pressure O2 75L, Arterial Blood HCO3 24, Arterial Blood Total CO2 25.4, Arterial Blood Oxygen Saturation 96, Arterial Blood Base Excess -1.2, Sachin Test YES-POS, Blood Gas Ventilator Setting YES, Blood Gas Inspired Oxygen 50% 07/27/18 02:30: White Blood Count 19.0H, Red Blood Count 2.61L, Hemoglobin 7.5#L, Hematocrit 24L , Mean Corpuscular Volume 90, Mean Corpuscular Hemoglobin 29, Mean Corpuscular Hemoglobin Concent 32, Red Cell Distribution Width 14.1, Platelet Count 165, Mean Platelet Volume 10.7H, Neutrophils (%) (Auto) 90H, Lymphocytes (%) (Auto) 4L, Monocytes (%) (Auto) 6, Eosinophils (%) (Auto) 0, Basophils (%) (Auto) 0, Neutrophils # (Auto) 17.1H, Lymphocytes # (Auto) 0.8L, Monocytes # (Auto) 1.1H, Eosinophils # (Auto) 0.0, Basophils # (Auto) 0.0, Sodium Level 144, Potassium Level 4.5, Chloride Level 117H, Carbon Dioxide Level 20L, Anion Gap 7, Blood Urea Nitrogen 23H, Creatinine 1.13, Estimat Glomerular Filtration Rate 47, BUN/Creatinine Ratio 20, Glucose Level 153H, Calcium Level 7.9L, Magnesium Level 1.2L, Triglycerides Level 173H, Amylase Level 55, Lipase 25 07/27/18 02:40: Blood Gas Puncture Site LEFT RADIAL, Blood Gas Patient Temperature 97.6, Arterial Blood pH 7.36L, Arterial Blood Partial Pressure CO2 38, Arterial Blood Partial Pressure O2 97H, Arterial Blood HCO3 21L, Arterial Blood Total CO2 22.1, Arterial Blood Oxygen Saturation 99, Arterial Blood Base Excess -3.8L, Sachin Test YES-POS, Blood Gas Ventilator Setting YES, Blood Gas Inspired Oxygen 40% 07/27/18 05:15: Lactic Acid Level 1.23 Microbiology 07/25/18 Blood Culture - Preliminary, Resulted No growth 07/26/18 MRSA Screen - Final, Complete MRSA not isolated 07/25/18 Urine Culture - Preliminary, Resulted Escherichia coli Enterococcus faecalis 07/26/18 Gram Stain - Final, Resulted 07/26/18 Anaerobic Culture, Resulted Pending 07/26/18 Surgical Culture, Resulted Pending Assessment/Plan Assessment/Plan Assessment/Plan S/P Lap [place] for acute Cholelithiasis/Cholecystitis Acute Pancreatitis Anemia HTN, Hypothyroidism Pt had surgery yesterday and is doing fine from that standpoint, she was kept on vent and self-extubated this am. She needed a lot of fluids and was hypotensive for a little yesterday. Hg today dropped 5gm probably all dilutional and is currently getting transfused 1 unit. Continue current care. Clinical Quality Measures DVT/VTE Risk/Contraindication: Risk Factor Score Per Nursin RFS Level Per Nursing on Admit: 4+=Very High ROSARIO MOJICA DO Jul 27, 2018 13:26
--- NOTE | 2018-07-27 13:36 | Progress Note-Cardiology ---
Cardiology SOAP Progress Note Subjective: No cp or palp or syncope Chronic exertional shortness of breath Abd pain better Objective: I&O/Vital Signs 07/27/18 07/27/18 07/27/18 07/27/18 02:00 02:57 03:00 04:00 Temp 97.6 Pulse 100 99 99 Resp 16 17 17 B/P (MAP) 93/69 (77) 108/74 (85) Pulse Ox 97 98 97 O2 Delivery Mechanical Ventilator Mechanical Ventilator O2 Flow Rate 40.00 30.00 FiO2 40 07/27/18 07/27/18 07/27/18 07/27/18 04:00 04:00 04:36 04:36 Pulse 97 Resp 19 B/P (MAP) 122/68 (86) Pulse Ox 97 93 O2 Delivery Mechanical Ventilator Mechanical Ventilator Vapotherm Vapotherm O2 Flow Rate 35.00 30.00 45.00 40.00 40.00 FiO2 45 07/27/18 07/27/18 07/27/18 07/27/18 05:00 06:00 06:00 07:00 Pulse 112 113 108 Resp 18 30 B/P (MAP) 142/90 (107) 137/80 (99) Pulse Ox 97 93 93 O2 Delivery Vapotherm Vapotherm Vapotherm O2 Flow Rate 45.00 45.00 40.00 40.00 40.00 FiO2 45 07/27/18 07/27/18 07/27/18 07/27/18 07:00 08:00 08:00 09:00 Pulse 105 103 135 Resp 17 38 16 B/P (MAP) 137/76 (96) 143/81 (101) 147/111 (123) Pulse Ox 99 99 98 O2 Delivery Vapotherm Vapotherm Vapotherm Vapotherm O2 Flow Rate 45.00 45.00 40.00 45.00 40.00 40.00 40.00 FiO2 50 07/27/18 07/27/18 07/27/18 07/27/18 09:36 10:00 11:00 11:44 Temp 98.4 Pulse 115 117 105 Resp 13 23 30 B/P (MAP) 145/81 (102) 159/96 (117) 165/91 Pulse Ox 95 96 100 100 O2 Delivery Vapotherm Vapotherm Vapotherm Vapotherm O2 Flow Rate 40.00 45.00 45.00 40.00 40.00 40.00 FiO2 50 50 07/27/18 07/27/18 07/27/18 07/27/18 11:45 12:00 12:00 12:00 Temp 98.7 98.4 Pulse 101 101 Resp 26 26 B/P (MAP) 173/90 169/110 (129) Pulse Ox 100 100 O2 Delivery Vapotherm Vapotherm Vapotherm O2 Flow Rate 40.00 45.00 40.00 FiO2 50 07/27/18 07/27/18 07/27/18 12:30 12:40 13:00 Temp 98.2 Pulse 101 108 112 Resp 32 32 B/P (MAP) 181/96 187/104 (131) Pulse Ox 100 100 O2 Delivery Vapotherm Vapotherm O2 Flow Rate 45.00 40.00 07/27/18 00:00 Intake Total 4840 ml Output Total 665 ml Balance 4175 ml Weight (Pounds): 175 Weight (Ounces): 0.0 Weight (Calculated Kilograms): [id number] Constitutional: AAO x 3, well-developed, well-nourished Respiratory: No accessory muscle use; other (good bilat air entry, diminished at the bases ) Cardiovascular: regular rate-rhythm, S1 and S2, systolic murmur (soft STACY at card base) Gastrointestional: tender (mild gen tenderness; deep palp not attempted); No audible bowel sounds Extremities: No clubbing, No cyanosis, No significant edema Neurologic/Psychiatric: oriented x 3, other (moves all limbs equally), grossly intact Skin: No rash on exposed areas, No ulcerations on exposed areas Results/Procedures: Labs Laboratory Tests 07/26/18 15:57: Blood Gas Puncture Site R RAD, Blood Gas Patient Temperature 98.9, Arterial Blood pH 7.33*L, Arterial Blood Partial Pressure CO2 47H, Arterial Blood Partial Pressure O2 75L, Arterial Blood HCO3 24, Arterial Blood Total CO2 25.4, Arterial Blood Oxygen Saturation 96, Arterial Blood Base Excess -1.2, Sachin Test YES-POS, Blood Gas Ventilator Setting YES, Blood Gas Inspired Oxygen 50% 07/27/18 02:30: White Blood Count 19.0H, Red Blood Count 2.61L, Hemoglobin 7.5#L, Hematocrit 24L , Mean Corpuscular Volume 90, Mean Corpuscular Hemoglobin 29, Mean Corpuscular Hemoglobin Concent 32, Red Cell Distribution Width 14.1, Platelet Count 165, Mean Platelet Volume 10.7H, Neutrophils (%) (Auto) 90H, Lymphocytes (%) (Auto) 4L, Monocytes (%) (Auto) 6, Eosinophils (%) (Auto) 0, Basophils (%) (Auto) 0, Neutrophils # (Auto) 17.1H, Lymphocytes # (Auto) 0.8L, Monocytes # (Auto) 1.1H, Eosinophils # (Auto) 0.0, Basophils # (Auto) 0.0, Sodium Level 144, Potassium Level 4.5, Chloride Level 117H, Carbon Dioxide Level 20L, Anion Gap 7, Blood Urea Nitrogen 23H, Creatinine 1.13, Estimat Glomerular Filtration Rate 47, BUN/Creatinine Ratio 20, Glucose Level 153H, Calcium Level 7.9L, Magnesium Level 1.2L, Triglycerides Level 173H, Amylase Level 55, Lipase 25 07/27/18 02:40: Blood Gas Puncture Site LEFT RADIAL, Blood Gas Patient Temperature 97.6, Arterial Blood pH 7.36L, Arterial Blood Partial Pressure CO2 38, Arterial Blood Partial Pressure O2 97H, Arterial Blood HCO3 21L, Arterial Blood Total CO2 22.1, Arterial Blood Oxygen Saturation 99, Arterial Blood Base Excess -3.8L, Sachin Test YES-POS, Blood Gas Ventilator Setting YES, Blood Gas Inspired Oxygen 40% 07/27/18 05:15: Lactic Acid Level 1.23 Microbiology 07/25/18 Blood Culture - Preliminary, Resulted No growth 07/26/18 MRSA Screen - Final, Complete MRSA not isolated 07/25/18 Urine Culture - Preliminary, Resulted Escherichia coli Enterococcus faecalis 07/26/18 Gram Stain - Final, Resulted 07/26/18 Anaerobic Culture, Resulted Pending 07/26/18 Surgical Culture, Resulted Pending Laboratory Tests 07/26/18 05:30 07/27/18 02:30 A/P: Assessment: Acute cholecystitis and probable gall stone pancreatitis Post-op anemia, being treated with blood transfusion today Borderline DM II, managed by the [facility] Hypertension, by history Plan: * I reviewed her chart, interviewed her, examined her, and answered her CV- related questions * Continue current regimen * Add beta-kirsten for bp control * Monitor labs * I discussed her case with SIRIA Mensah MD FACP FACC CCDS Jul 27, 2018 13:36
[2018-07-27] MEDS ORDERED: meTOprolol 5 MG/5 ML (LOPRESSOR) VIAL ONE (13:46)
--- NOTE | 2018-07-27 14:03 | Anesthesia-General Post-Op ---
General Patient Condition Mental Status/LOC: Same as Preop Cardiovascular: Satisfactory Nausea/Vomiting: Absent Respiratory: Satisfactory Pain: Controlled Complications: Absent Post Op Complications Complications Post operatively patient left intubated due to poor weaning parameters. 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 Patient doing well and answered all questions appropriately. Follow Up Care/Instructions Patient Instructions None needed. Anesthesia/Patient Condition Patient Condition Patient is doing well, no complaints, stable vital signs, no apparent adverse anesthesia problems. No complications reported per nursing. BENTON GRAF CRNA Jul 27, 2018 14:03
[2018-07-27] MEDS: meTOprolol 5 MG/5 ML (LOPRESSOR) VIAL IV SCH (17:56)
[2018-07-28] VITALS (15 sets, daily range): BP systolic 124–158; BP diastolic 63–89
[2018-07-28] MEDS: meTOprolol 5 MG/5 ML (LOPRESSOR) VIAL IV SCH ×5 (00:09→23:58)
[2018-07-28] MEDS: PIPERACILLIN/TAZOBACTAM (BULK) 4.5 GM in NS (IVPB) 100 ML IV SCH ×4 (00:13→23:58)
[2018-07-28 03:40] LABS: BASOPHILS % (AUTO) 0 % (0-10); EOSINOPHILS % (AUTO) 0 % (0-10); HEMATOCRIT 26 % (35-52); HEMOGLOBIN 8.6 G/DL (11.5-16.0); LYMPHOCYTES # (AUTO) 1.6 X 10^3 (1.0-4.0); LYMPHOCYTES % (AUTO) 9 % (12-44); MEAN CORPUSCULAR HEMOGLOBIN 29 PG (25-34); MEAN CORPUSCULAR HGB CONC 33 G/DL (32-36); MEAN CORPUSCULAR VOLUME 89 FL (80-99); MEAN PLATELET VOLUME 10.7 FL (7.4-10.4); MONOCYTES # (AUTO) 1.3 X 10^3 (0.0-1.0); MONOCYTES % (AUTO) 8 % (0-12); NEUTROPHILS # (AUTO) 14.6 X 10^3 (1.8-7.8); NEUTROPHILS % (AUTO) 83 % (42-75); PLATELET COUNT 192 10^3/uL (130-400); WHITE BLOOD COUNT 17.5 10^3/uL (4.3-11.0)
[2018-07-28 04:04] LABS: BUN/CREATININE RATIO 27; CALCIUM 8.6 MG/DL (8.5-10.1); CARBON DIOXIDE 18 MMOL/L (21-32); CHLORIDE 119 MMOL/L (98-107); CREATININE SERUM 0.89 MG/DL (0.60-1.30); GFR ESTIMATED > 60; GLUCOSE 101 MG/DL (70-105); POTASSIUM 4.2 MMOL/L (3.6-5.0); SODIUM 144 MMOL/L (135-145)
[2018-07-28] MEDS: POTASSIUM CL 10MEQ/50ML IVPB 50 ML IV SCH (04:50)
[2018-07-28] MEDS: KCL 20 MEQ TAB (K-DUR) PO SCH (04:50)
[2018-07-28] MEDS: MAGNESIUM 1 GM/100 ML IVPB 100 ML IV SCH (04:50)
[2018-07-28] MEDS: fentaNYL INJECTION 100 MCG/2 ML AMP IV PRN ×4 (05:00→20:15)
[2018-07-28] MEDS: NS W/KCL 20 MEQ/L 1,000 ML IV SCH ×4 (05:39→21:12)
--- NOTE | 2018-07-28 06:35 | Pulmonary Progress Note ---
Subjective Time Seen by a Provider: 06:33 Subjective/Events-last exam Pt is much improved today. Sepsis Event Evaluation Height, Weight, BMI Height: 5'2.00" Weight: 175lbs. 0.0oz. [id number]; 32.0 BMI Method:Stated Focused Exam Lactate Level 07/25/18 10:27: Lactic Acid Level 3.38*H 07/26/18 11:02: Lactic Acid Level 0.92 07/27/18 05:15: Lactic Acid Level 1.23 Exam Exam Vital Signs Date Time Temp Pulse Resp B/P (MAP) Pulse Ox O2 Delivery O2 Flow Rate FiO2 07/28/18 06:00 81 19 142/78 (99) 97 Vapotherm 30.00 25.00 07/28/18 05:00 94 18 138/89 (105) 96 Vapotherm 30.00 25.00 07/28/18 04:00 86 28 131/77 (95) 92 Vapotherm 30.00 25.00 07/28/18 04:00 Vapotherm 30.00 35 07/28/18 03:00 90 28 148/81 (103) 96 Vapotherm 30.00 25.00 07/28/18 02:03 Vapotherm 30.00 25.00 07/28/18 02:00 86 27 124/72 (89) 98 Vapotherm 35.00 30.00 07/28/18 01:55 98 Vapotherm 25.00 30 07/28/18 01:00 93 29 138/82 (100) 97 Vapotherm 35.00 30.00 07/28/18 01:00 93 07/28/18 00:00 98 23 129/79 (96) 97 Vapotherm 35.00 30.00 07/28/18 00:00 Vapotherm 30.00 35 07/27/18 23:00 105 27 107/66 (80) 96 Vapotherm 35.00 30.00 07/27/18 22:00 101 23 117/61 (79) 97 Vapotherm 35.00 30.00 07/27/18 21:37 Vapotherm 35.00 30.00 07/27/18 21:30 97 Vapotherm 30.00 35 07/27/18 21:08 Vapotherm 35.00 35.00 07/27/18 21:00 110 31 135/79 (97) 98 Vapotherm 45.00 40.00 07/27/18 20:00 107 30 134/78 (96) 98 Vapotherm 45.00 40.00 07/27/18 20:00 Vapotherm 30.00 40 07/27/18 19:45 97.9 07/27/18 19:00 107 07/27/18 19:00 107 26 148/81 (103) 97 Vapotherm 45.00 40.00 07/27/18 18:53 99 Vapotherm 35.00 35 07/27/18 18:00 111 16 162/91 (114) 97 Vapotherm 45.00 40.00 07/27/18 17:00 113 24 170/95 (120) 98 Vapotherm 45.00 40.00 07/27/18 16:29 98.2 07/27/18 16:00 114 39 161/98 (119) 99 Vapotherm 45.00 40.00 07/27/18 16:00 Vapotherm 40.00 50 07/27/18 15:45 99.2 07/27/18 15:00 105 29 162/93 (116) 99 Vapotherm 45.00 40.00 07/27/18 14:00 101 40 166/106 (126) 100 Vapotherm 45.00 40.00 07/27/18 13:00 112 32 187/104 (131) 100 Vapotherm 45.00 40.00 07/27/18 12:40 108 07/27/18 12:30 98.2 101 32 181/96 100 Vapotherm 07/27/18 12:00 101 26 169/110 (129) 100 Vapotherm 45.00 40.00 07/27/18 12:00 98.4 101 26 173/90 100 Vapotherm 07/27/18 12:00 Vapotherm 40.00 50 07/27/18 11:45 98.7 07/27/18 11:44 98.4 105 30 165/91 100 Vapotherm 40.00 50 07/27/18 11:00 117 23 159/96 (117) 100 Vapotherm 45.00 40.00 07/27/18 10:00 115 13 145/81 (102) 96 Vapotherm 45.00 40.00 07/27/18 09:36 95 Vapotherm 40.00 50 07/27/18 09:00 135 16 147/111 (123) 98 Vapotherm 45.00 40.00 07/27/18 08:00 Vapotherm 40.00 50 07/27/18 08:00 103 38 143/81 (101) 99 Vapotherm 45.00 40.00 07/27/18 07:00 105 17 137/76 (96) 99 Vapotherm 45.00 40.00 07/27/18 07:00 108 I & O 07/28/18 07:00 Intake Total 2790 ml Output Total 1375 ml Balance 1415 ml Height & Weight Height: 5'2.00" Weight: 175lbs. 0.0oz. 79.484829oy; 32.0 BMI Method:Stated General Appearance: WD/WN, Mild Distress HEENT: PERRL/EOMI, Moist Mucous Membranes Neck: Carotid Bruit Respiratory: Chest Non Tender, Normal Breath Sounds, No Accessory Muscle Use, No Respiratory Distress Cardiovascular: No Murmur, Systolic Murmur, Tachycardia Capillary Refill: Less Than 3 Seconds Gastrointestinal: normal bowel sounds, soft, no organomegaly, tenderness (across upper abdomen) Extremity: No Calf Tenderness, No Pedal Edema Results Lab Laboratory Tests 07/27/18 02:30 07/28/18 03:31 Assessment/Plan Assessment/Plan Acute respiratory failure - improving -Change Vapotherm to regular NC -Pt was reintubated after surgery secondary to acute distress -pt self extubated yesterday -CXR reviewed. Acute cholecystitis s/p surgery -Surgery following -Continue Zosyn -Await hodges cultures Metabolic acidosis -Check lactic acid Acute pancreatitis -IVF -Repeat amylase, lipase - is improved Hypomag -replace Hypotension during the night with decreased UO -Will transfuse 1 unit of PRBC -IVF pt has had 2.5liter bolus of IVF -IVF currently going at 200cc/hr Anemia s/p 1 unit of PRBC -Monitor Sinus tachycardia monitor -IVF To 4th when ok with Dr. Sun. CLARISSA CHEN DO Jul 28, 2018 06:35
--- NOTE | 2018-07-28 08:11 | Progress Note (SOAP) ---
Subjective Subjective/Events-last exam Patient appears to be in good spirits this morning. She does report she still is spitting quite a bit. She reports her abdominal discomfort has improved. Review of Systems Date Seen by Provider: Jul 28, 2018 Time Seen by Provider: 07:05 Focused Exam Lactate Level 07/25/18 10:27: Lactic Acid Level 3.38*H 07/26/18 11:02: Lactic Acid Level 0.92 07/27/18 05:15: Lactic Acid Level 1.23 Objective Exam Last Set of Vital Signs Vital Signs Date Time Temp Pulse Resp B/P (MAP) Pulse Ox O2 Delivery O2 Flow Rate FiO2 07/28/18 07:00 87 07/28/18 06:00 19 142/78 (99) 97 Vapotherm 30.00 25.00 07/28/18 04:00 35 07/28/18 04:00 97.3 Capillary Refill : Less Than 3 Seconds I&O Intake and Output 07/27/18 23:59 Intake Total 4990 ml Output Total 1285 ml Balance 3705 ml Intake Oral 0 ml IV Total 4720 ml Other 270 ml Output Urine Total 1285 ml General: No Acute Distress HEENT: Mucous Memb Moist/Sudley Lungs: Clear to Auscultation Heart: Regular Rate Abdomen: Soft, Other (Bowel sounds are not noted on auscultation this morning) Skin: No Rashes Psych/Mental Status: Mental Status NL, Mood NL Results/Procedures Lab Laboratory Tests 07/28/18 03:31: White Blood Count 17.5H, Red Blood Count 2.94L, Hemoglobin 8.6L, Hematocrit 26L, Mean Corpuscular Volume 89, Mean Corpuscular Hemoglobin 29, Mean Corpuscular Hemoglobin Concent 33, Red Cell Distribution Width 15.0H, Platelet Count 192, Mean Platelet Volume 10.7H, Neutrophils (%) (Auto) 83H, Lymphocytes (%) (Auto) 9L, Monocytes (%) (Auto) 8, Eosinophils (%) (Auto) 0, Basophils (%) (Auto) 0, Neutrophils # (Auto) 14.6H, Lymphocytes # (Auto) 1.6, Monocytes # (Auto) 1.3H, Eosinophils # (Auto) 0.0, Basophils # (Auto) 0.0, Sodium Level 144, Potassium Level 4.2, Chloride Level 119H, Carbon Dioxide Level 18L, Anion Gap 7, Blood Urea Nitrogen 24H, Creatinine 0.89, Estimat Glomerular Filtration Rate > 60, BUN/Creatinine Ratio 27, Glucose Level 101, Calcium Level 8.6, Magnesium Level 2.0 Microbiology 07/25/18 Blood Culture - Preliminary, Resulted No growth 07/26/18 Gram Stain - Final, Resulted 07/26/18 Sputum Culture, Resulted Pending 07/25/18 Urine Culture - Preliminary, Resulted Escherichia coli Enterococcus faecalis 07/26/18 Gram Stain - Final, Resulted 07/26/18 Anaerobic Culture, Resulted Pending 07/26/18 Surgical Culture - Preliminary, Resulted No growth Assessment/Plan Assessment/Plan (1) Cholecystitis, acute with cholelithiasis Status: Acute Assessment & Plan: - Dr Sun managing Qualifiers: Qualified Codes: K80.01 - Calculus of gallbladder with acute cholecystitis with obstruction (2) Pancreatitis due to biliary obstruction Status: Acute Assessment & Plan: 07/28: Lipase level yesterday known to be within normal range. Qualifiers: Qualified Codes: K85.10 - Biliary acute pancreatitis without necrosis or infection (3) Shortness of breath Status: Acute Assessment & Plan: - Normal saturations but patient is tachycardic, decreased IVFs 75, BNP pending, ECG pending (4) Tachyarrhythmia Status: Acute Assessment & Plan: - ECG pending, Labetalol given, Cardiology consulted for surgical clearance 07/27: Patient still slightly tachycardia status post surgery cholecystectomy 07/28: This has improved as her pulse rate today is 96. (5) Anemia Status: Acute Assessment & Plan: Patient's hemoglobin yesterday compared today went from 12.3-7.5. Most likely this is surgical blood loss. Will need to check with surgeon to ensure this is the case. She seems to be very stable clinically with regard to her hemoglobin of 7.5. Continue to monitor hemoglobin daily. 07/28: Patient received 1 unit of packed RBC yesterday. Her hemoglobin today is noted to be at 8.6. Her anemia may be related to surgical blood loss but as noted by the surgeon may be more delusional. (6) Lactic acid acidosis Status: Acute Assessment & Plan: - Repeat LA pending Clinical Quality Measures DVT/VTE Risk/Contraindication: Risk Factor Score Per Nursin RFS Level Per Nursing on Admit: 4+=Very High JOHNNIE ORTIZ MD Jul 28, 2018 08:11
[2018-07-28] MEDS: PANTOPRAZOLE 40 MG (PROTONIX) VIAL IV SCH (08:13)
--- NOTE | 2018-07-28 09:49 | Progress Note ---
Subjective Time Seen by a Provider: 09:33 Subjective/Events-last exam Pt seen and examined, states she has no pain now but did just get pain pill. Review of Systems Cardiovascular: No: Chest Pain, Palpitations Gastrointestinal: Abdominal Pain; No: Nausea, Vomiting Focused Exam Lactate Level 07/25/18 10:27: Lactic Acid Level 3.38*H 07/26/18 11:02: Lactic Acid Level 0.92 07/27/18 05:15: Lactic Acid Level 1.23 Objective Exam Vital Signs Date Time Temp Pulse Resp B/P (MAP) Pulse Ox O2 Delivery O2 Flow Rate FiO2 07/28/18 09:00 94 21 140/80 (100) 100 High Flow N/C 3.00 07/28/18 08:00 Nasal Cannula 3.00 07/28/18 08:00 83 45 140/81 (100) 99 High Flow N/C 3.00 07/28/18 07:00 87 40 133/77 (95) 97 Vapotherm 30.00 25.00 07/28/18 07:00 87 07/28/18 06:00 81 19 142/78 (99) 97 Vapotherm 30.00 25.00 07/28/18 05:00 94 18 138/89 (105) 96 Vapotherm 30.00 25.00 07/28/18 04:00 86 28 131/77 (95) 92 Vapotherm 30.00 25.00 07/28/18 04:00 Vapotherm 30.00 35 07/28/18 04:00 97.3 07/28/18 03:00 90 28 148/81 (103) 96 Vapotherm 30.00 25.00 07/28/18 02:03 Vapotherm 30.00 25.00 07/28/18 02:00 86 27 124/72 (89) 98 Vapotherm 35.00 30.00 07/28/18 01:55 98 Vapotherm 25.00 30 07/28/18 01:00 93 29 138/82 (100) 97 Vapotherm 35.00 30.00 07/28/18 01:00 93 07/28/18 00:00 98 23 129/79 (96) 97 Vapotherm 35.00 30.00 07/28/18 00:00 Vapotherm 30.00 35 07/28/18 00:00 97.7 07/27/18 23:00 105 27 107/66 (80) 96 Vapotherm 35.00 30.00 07/27/18 22:00 101 23 117/61 (79) 97 Vapotherm 35.00 30.00 07/27/18 21:37 Vapotherm 35.00 30.00 07/27/18 21:30 97 Vapotherm 30.00 35 07/27/18 21:08 Vapotherm 35.00 35.00 07/27/18 21:00 110 31 135/79 (97) 98 Vapotherm 45.00 40.00 07/27/18 20:00 107 30 134/78 (96) 98 Vapotherm 45.00 40.00 07/27/18 20:00 Vapotherm 30.00 40 07/27/18 19:45 97.9 07/27/18 19:00 107 07/27/18 19:00 107 26 148/81 (103) 97 Vapotherm 45.00 40.00 07/27/18 18:53 99 Vapotherm 35.00 35 07/27/18 18:00 111 16 162/91 (114) 97 Vapotherm 45.00 40.00 07/27/18 17:00 113 24 170/95 (120) 98 Vapotherm 45.00 40.00 07/27/18 16:29 98.2 07/27/18 16:00 114 39 161/98 (119) 99 Vapotherm 45.00 40.00 07/27/18 16:00 Vapotherm 40.00 50 07/27/18 15:45 99.2 07/27/18 15:00 105 29 162/93 (116) 99 Vapotherm 45.00 40.00 07/27/18 14:00 101 40 166/106 (126) 100 Vapotherm 45.00 40.00 07/27/18 13:00 112 32 187/104 (131) 100 Vapotherm 45.00 40.00 07/27/18 12:40 108 07/27/18 12:30 98.2 101 32 181/96 100 Vapotherm 07/27/18 12:00 101 26 169/110 (129) 100 Vapotherm 45.00 40.00 07/27/18 12:00 98.4 101 26 173/90 100 Vapotherm 07/27/18 12:00 Vapotherm 40.00 50 07/27/18 11:45 98.7 07/27/18 11:44 98.4 105 30 165/91 100 Vapotherm 40.00 50 07/27/18 11:00 117 23 159/96 (117) 100 Vapotherm 45.00 40.00 07/27/18 10:00 115 13 145/81 (102) 96 Vapotherm 45.00 40.00 I & O 07/28/18 07:00 Intake Total 2910 ml Output Total 1725 ml Balance 1185 ml Capillary Refill : Less Than 3 Seconds General Appearance: No Apparent Distress, WD/WN HEENT: PERRL/EOMI, Moist Mucous Membranes Respiratory: Chest Non Tender, Normal Breath Sounds, No Accessory Muscle Use, No Respiratory Distress Cardiovascular: Regular Rate, Rhythm, No Edema Gastrointestinal: normal bowel sounds, soft, no organomegaly, tenderness (across upper abdomen) Extremity: No Calf Tenderness, No Pedal Edema Results Lab Laboratory Tests 07/28/18 03:31: White Blood Count 17.5H, Red Blood Count 2.94L, Hemoglobin 8.6L, Hematocrit 26L, Mean Corpuscular Volume 89, Mean Corpuscular Hemoglobin 29, Mean Corpuscular Hemoglobin Concent 33, Red Cell Distribution Width 15.0H, Platelet Count 192, Mean Platelet Volume 10.7H, Neutrophils (%) (Auto) 83H, Lymphocytes (%) (Auto) 9L, Monocytes (%) (Auto) 8, Eosinophils (%) (Auto) 0, Basophils (%) (Auto) 0, Neutrophils # (Auto) 14.6H, Lymphocytes # (Auto) 1.6, Monocytes # (Auto) 1.3H, Eosinophils # (Auto) 0.0, Basophils # (Auto) 0.0, Sodium Level 144, Potassium Level 4.2, Chloride Level 119H, Carbon Dioxide Level 18L, Anion Gap 7, Blood Urea Nitrogen 24H, Creatinine 0.89, Estimat Glomerular Filtration Rate > 60, BUN/Creatinine Ratio 27, Glucose Level 101, Calcium Level 8.6, Magnesium Level 2.0 Microbiology 07/25/18 Blood Culture - Preliminary, Resulted No growth 07/26/18 Gram Stain - Final, Resulted 07/26/18 Sputum Culture, Resulted Pending 07/25/18 Urine Culture - Final, Complete Escherichia coli Enterococcus faecalis 07/26/18 Gram Stain - Final, Resulted 07/26/18 Anaerobic Culture, Resulted Pending 07/26/18 Surgical Culture - Preliminary, Resulted No growth Assessment/Plan Assessment/Plan Assessment/Plan S/P Lap [place] for acute Cholelithiasis/Cholecystitis Acute Pancreatitis Anemia HTN, Hypothyroidism Pt improving and no longer hypotensive; Hg is 8.6 today with WBC still elevated at appx 17. Continue current care, ok to go to 4th floor. Clinical Quality Measures DVT/VTE Risk/Contraindication: Risk Factor Score Per Nursin RFS Level Per Nursing on Admit: 4+=Very High ROSARIO MOJICA DO Jul 28, 2018 09:49
--- NOTE | 2018-07-28 09:54 | Diagnostic Imaging Report ---
Indication: Intubation. Compared to 07/27/2018 Findings: ET tube removed. Lung volumes decreased with some progressive perihilar and basilar atelectasis. There are small amounts of pleural fluid which may be increased. No pneumothorax. Impression: There is likely increased small effusions with progressive atelectasis and decreased lung volumes postextubation, no other change. Dictated by: Dictated on workstation # [id number]
--- NOTE | 2018-07-28 12:59 | Progress Note-Cardiology ---
Cardiology SOAP Progress Note Subjective: No cp or palp or syncope Does not report shortness of breath Generally feels well and states is looking forward to being able to eat Objective: I&O/Vital Signs 07/28/18 07/28/18 07/28/18 07/28/18 01:00 01:00 01:55 02:00 Pulse 93 93 86 Resp 29 27 B/P (MAP) 138/82 (100) 124/72 (89) Pulse Ox 97 98 98 O2 Delivery Vapotherm Vapotherm Vapotherm O2 Flow Rate 35.00 25.00 35.00 30.00 30.00 FiO2 30 07/28/18 07/28/18 07/28/18 07/28/18 02:03 03:00 04:00 04:00 Temp 97.3 Pulse 90 Resp 28 B/P (MAP) 148/81 (103) Pulse Ox 96 O2 Delivery Vapotherm Vapotherm Vapotherm O2 Flow Rate 30.00 30.00 30.00 25.00 25.00 FiO2 35 07/28/18 07/28/18 07/28/18 07/28/18 04:00 05:00 06:00 07:00 Pulse 86 94 81 87 Resp 28 18 19 B/P (MAP) 131/77 (95) 138/89 (105) 142/78 (99) Pulse Ox 92 96 97 O2 Delivery Vapotherm Vapotherm Vapotherm O2 Flow Rate 30.00 30.00 30.00 25.00 25.00 25.00 07/28/18 07/28/18 07/28/18 07/28/18 07:00 08:00 08:00 09:00 Pulse 87 83 94 Resp 40 45 21 B/P (MAP) 133/77 (95) 140/81 (100) 140/80 (100) Pulse Ox 97 99 100 O2 Delivery Vapotherm High Flow N/C Nasal Cannula High Flow N/C O2 Flow Rate 30.00 3.00 3.00 3.00 25.00 07/28/18 07/28/18 07/28/18 07/28/18 10:00 11:00 12:00 12:00 Pulse 92 89 86 Resp 16 29 37 B/P (MAP) 152/78 (102) 147/73 (97) 131/63 (85) Pulse Ox 99 99 99 O2 Delivery High Flow N/C High Flow N/C High Flow N/C Nasal Cannula O2 Flow Rate 3.00 3.00 3.00 3.00 07/28/18 00:00 Intake Total 2790 ml Output Total 850 ml Balance 1940 ml Weight (Pounds): 175 Weight (Ounces): 0.0 Weight (Calculated Kilograms): 79.838819 Constitutional: AAO x 3, well-developed, well-nourished Respiratory: No accessory muscle use; other (good bilat air entry, diminished at the bases ) Cardiovascular: regular rate-rhythm, S1 and S2, systolic murmur (soft STACY at card base) Gastrointestional: tender (mild gen tenderness; deep palp not attempted); No audible bowel sounds Extremities: No clubbing, No cyanosis, No significant edema Neurologic/Psychiatric: oriented x 3, other (moves all limbs equally), grossly intact Skin: No rash on exposed areas, No ulcerations on exposed areas Results/Procedures: Labs Laboratory Tests 07/28/18 03:31: White Blood Count 17.5H, Red Blood Count 2.94L, Hemoglobin 8.6L, Hematocrit 26L, Mean Corpuscular Volume 89, Mean Corpuscular Hemoglobin 29, Mean Corpuscular Hemoglobin Concent 33, Red Cell Distribution Width 15.0H, Platelet Count 192, Mean Platelet Volume 10.7H, Neutrophils (%) (Auto) 83H, Lymphocytes (%) (Auto) 9L, Monocytes (%) (Auto) 8, Eosinophils (%) (Auto) 0, Basophils (%) (Auto) 0, Neutrophils # (Auto) 14.6H, Lymphocytes # (Auto) 1.6, Monocytes # (Auto) 1.3H, Eosinophils # (Auto) 0.0, Basophils # (Auto) 0.0, Sodium Level 144, Potassium Level 4.2, Chloride Level 119H, Carbon Dioxide Level 18L, Anion Gap 7, Blood Urea Nitrogen 24H, Creatinine 0.89, Estimat Glomerular Filtration Rate > 60, BUN/Creatinine Ratio 27, Glucose Level 101, Calcium Level 8.6, Magnesium Level 2.0 Microbiology 07/25/18 Blood Culture - Preliminary, Resulted No growth 07/26/18 MRSA Screen - Final, Complete MRSA not isolated 07/25/18 Urine Culture - Final, Complete Escherichia coli Enterococcus faecalis 07/26/18 Gram Stain - Final, Resulted 07/26/18 Anaerobic Culture, Resulted Pending 07/26/18 Surgical Culture - Preliminary, Resulted No growth Laboratory Tests 07/27/18 02:30 07/28/18 03:31 A/P: Assessment: Acute cholecystitis and probable gall stone pancreatitis, treated with lap jaquan on 07/26/18 Post-op anemia, improved after blood transfusion on 07/27/18 Borderline DM II, managed by the Med Svce Hypertension, by history Plan: * Continue current regimen * Add enoxaparin for DVT prophylaxis if ok with the Med and Surg Svces * Monitor labs SIRIA DE LA PAZ MD FACP FAC CCDS Jul 28, 2018 12:59
--- NOTE | 2018-07-28 13:30 | NUR ---
Report received from Preet JESUS. Patient in room at this time, patient oriented to room, and call light. Will continue to monitor.
[2018-07-28] MEDS: MELATONIN 3 MG TABLET PO SCH (22:21)
[2018-07-29] VITALS (7 sets, daily range): BP systolic 124–174; BP diastolic 67–99
[2018-07-29] MEDS: NS W/KCL 20 MEQ/L 1,000 ML IV SCH ×2 (04:39→08:34)
[2018-07-29 05:43] LABS: BASOPHILS % (AUTO) 0 % (0-10); EOSINOPHILS % (AUTO) 0 % (0-10); HEMATOCRIT 25 % (35-52); LYMPHOCYTES # (AUTO) 1.5 X 10^3 (1.0-4.0); LYMPHOCYTES % (AUTO) 9 % (12-44); MEAN CORPUSCULAR HEMOGLOBIN 29 PG (25-34); MEAN CORPUSCULAR HGB CONC 32 G/DL (32-36); MEAN CORPUSCULAR VOLUME 90 FL (80-99); MONOCYTES # (AUTO) 1.3 X 10^3 (0.0-1.0); MONOCYTES % (AUTO) 8 % (0-12); NEUTROPHILS # (AUTO) 13.5 X 10^3 (1.8-7.8); NEUTROPHILS % (AUTO) 83 % (42-75); PLATELET COUNT 205 10^3/uL (130-400); RED CELL DISTRIBUTION WIDTH 14.4 % (10.0-14.5); WHITE BLOOD COUNT 16.3 10^3/uL (4.3-11.0)
[2018-07-29 05:56] LABS: MAGNESIUM 1.8 MG/DL (1.8-2.4)
[2018-07-29] MEDS: MAGNESIUM 1 GM/100 ML IVPB 100 ML IV SCH (05:56)
[2018-07-29] MEDS: POTASSIUM CL 10MEQ/50ML IVPB 50 ML IV SCH (05:56)
[2018-07-29] MEDS: KCL 20 MEQ TAB (K-DUR) PO SCH (05:57)
[2018-07-29 05:59] LABS: BUN/CREATININE RATIO 26; CALCIUM 8.8 MG/DL (8.5-10.1); CARBON DIOXIDE 20 MMOL/L (21-32); CHLORIDE 114 MMOL/L (98-107); CREATININE SERUM 0.82 MG/DL (0.60-1.30); GFR ESTIMATED > 60; GLUCOSE 75 MG/DL (70-105); POTASSIUM 4.2 MMOL/L (3.6-5.0); SODIUM 143 MMOL/L (135-145)
[2018-07-29] MEDS: meTOprolol 5 MG/5 ML (LOPRESSOR) VIAL IV SCH ×3 (06:03→17:12)
--- NOTE | 2018-07-29 07:55 | Diagnostic Imaging Report ---
INDICATION: Intubated patient. COMPARISON: 07/28/2018 FINDINGS: Single frontal radiographic view of the chest was obtained and demonstrates persistent bibasilar effusions and associated airspace disease, left greater than right. Overall, aeration is stable. Cardiac silhouette and pulmonary vasculature is stable as well. No pneumothorax is seen on either side. Bony structures show no adverse interval changes. IMPRESSION: 1. Stable exam of the chest showing bibasilar effusions and associated atelectasis and/or infiltrate, left greater than right. Dictated by: Dictated on workstation # [id number]
[2018-07-29] MEDS: PANTOPRAZOLE 40 MG (PROTONIX) VIAL IV SCH (08:30)
[2018-07-29] MEDS: PIPERACILLIN/TAZOBACTAM (BULK) 4.5 GM in NS (IVPB) 100 ML IV SCH ×2 (08:30→17:12)
--- NOTE | 2018-07-29 08:46 | NUR ---
PRIOR TO A.M. MEDICATIONS PULSE WAS 84 BPM, B/P WAS 170/84.
--- NOTE | 2018-07-29 09:41 | Progress Note-Hospitalist ---
Subjective HPI/CC On Admission Date Seen by Provider: Jul 29, 2018 Time Seen by Provider: 09:45 Subjective/Events-last exam Pt doing better. Lovenox was initiated. Had a large BM yesterday. Will discontinue ladd catheter. Pain is doing pretty well, she rates it at a 7 but it looks more like a 2. Clinimix started and discontinued the IV fluid running at 200 CCs per hour. Disposition pending. Review of Systems General: Fatigue, Malaise Focused Exam Lactate Level 07/27/18 05:15: Lactic Acid Level 1.23 Objective Exam Vital Signs Vital Signs Date Time Temp Pulse Resp B/P (MAP) Pulse Ox O2 Delivery O2 Flow Rate FiO2 07/29/18 18:00 124/82 (96) 07/29/18 15:45 99.7 102 18 97 Nasal Cannula 2.00 07/28/18 04:00 35 Capillary Refill : Less Than 3 Seconds General Appearance: No Apparent Distress, WD/WN HEENT: PERRL/EOMI, Moist Mucous Membranes Respiratory: Chest Non Tender, Normal Breath Sounds, No Accessory Muscle Use, No Respiratory Distress Cardiovascular: Regular Rate, Rhythm, No Edema Gastrointestinal: No Organomegaly, No Pulsatile Mass, Soft, Abnormal Bowel Sounds, Distended, Tenderness Back: Normal Inspection, No CVA Tenderness, No Vertebral Tenderness Extremity: No Calf Tenderness, No Pedal Edema Neurologic/Psychiatric: Alert, Oriented x3 Results/Procedures Lab Laboratory Tests 07/29/18 05:30 Patient resulted labs reviewed. Assessment/Plan Assessment and Plan Assess & Plan/Chief Complaint Assessment: s/p Lap [place] for acute Cholelithiasis/Cholecystitis Acute Pancreatitis Anemia HTN Hypothyroidism Plan: Monitor closely Clinimix Diagnosis/Problems Diagnosis/Problems (1) Cholecystitis, acute with cholelithiasis Status: Acute Qualifiers: Biliary obstruction: with biliary obstruction Qualified Codes: K80.01 - Calculus of gallbladder with acute cholecystitis with obstruction (2) Pancreatitis due to biliary obstruction Status: Acute Qualifiers: Chronicity: acute Acute pancreatitis complication: unspecified Qualified Codes: K85.10 - Biliary acute pancreatitis without necrosis or infection (3) Lactic acid acidosis Status: Acute (4) Tachyarrhythmia Status: Acute (5) Anemia Status: Acute Qualifiers: Anemia type: unspecified type Qualified Codes: D64.9 - Anemia, unspecified Clinical Quality Measures DVT/VTE Risk/Contraindication: Risk Factor Score Per Nursin RFS Level Per Nursing on Admit: 4+=Very High Other: SEE INTERVENTIONS FOR DETAILS LINCOLN MONK DO Jul 29, 2018 09:41
--- NOTE | 2018-07-29 10:07 | Progress Note-Cardiology ---
Cardiology SOAP Progress Note Subjective: Up to BSC. Denies any n/v/d. Denies any c/o CP, dyspnea or palpitations. Objective: I&O/Vital Signs 07/29/18 07/29/18 07/29/18 07/29/18 08:00 08:00 11:21 12:00 Temp 97.7 97.9 Pulse 84 80 Resp 18 18 B/P (MAP) 170/84 (112) 172/81 (111) Pulse Ox 99 97 100 O2 Delivery Nasal Cannula Nasal Cannula Nasal Cannula Nasal Cannula O2 Flow Rate 3.00 3.00 3.00 3.00 3.00 07/29/18 07/29/18 07/29/18 13:39 15:45 18:00 Temp 97.9 99.7 Pulse 102 Resp 18 B/P (MAP) 174/99 (124) 124/82 (96) Pulse Ox 97 O2 Delivery Nasal Cannula O2 Flow Rate 2.00 07/29/18 00:00 Intake Total 50 ml Output Total 1600 ml Balance -1550 ml Weight (Pounds): 175 Weight (Ounces): 0.0 Weight (Calculated Kilograms): 79.165079 Constitutional: AAO x 3, well-developed, well-nourished Respiratory: No accessory muscle use; other (good bilat air entry, diminished at the bases ) Cardiovascular: regular rate-rhythm, S1 and S2, systolic murmur (soft STACY at card base) Gastrointestional: tender (mild gen tenderness; deep palp not attempted); No audible bowel sounds Extremities: No clubbing, No cyanosis, No significant edema Neurologic/Psychiatric: oriented x 3, other (moves all limbs equally), grossly intact Skin: No rash on exposed areas, No ulcerations on exposed areas Results/Procedures: Labs Laboratory Tests 07/29/18 05:30: White Blood Count 16.3H, Red Blood Count 2.76L, Hemoglobin 8.0L, Hematocrit 25L, Mean Corpuscular Volume 90, Mean Corpuscular Hemoglobin 29, Mean Corpuscular Hemoglobin Concent 32, Red Cell Distribution Width 14.4, Platelet Count 205, Mean Platelet Volume 10.0, Neutrophils (%) (Auto) 83H, Lymphocytes (%) (Auto) 9L , Monocytes (%) (Auto) 8, Eosinophils (%) (Auto) 0, Basophils (%) (Auto) 0, Neutrophils # (Auto) 13.5H, Lymphocytes # (Auto) 1.5, Monocytes # (Auto) 1.3H, Eosinophils # (Auto) 0.0, Basophils # (Auto) 0.0, Sodium Level 143, Potassium Level 4.2, Chloride Level 114H, Carbon Dioxide Level 20L, Anion Gap 9, Blood Urea Nitrogen 21H, Creatinine 0.82, Estimat Glomerular Filtration Rate > 60, BUN/Creatinine Ratio 26, Glucose Level 75, Calcium Level 8.8, Magnesium Level 1.8, Triglycerides Level 190H Microbiology 07/25/18 Blood Culture - Preliminary, Resulted No growth 07/26/18 MRSA Screen - Final, Complete MRSA not isolated 07/25/18 Urine Culture - Final, Complete Escherichia coli Enterococcus faecalis 07/26/18 Gram Stain - Final, Resulted 07/26/18 Anaerobic Culture - Preliminary, Resulted No anaerobes isolated 07/26/18 Surgical Culture - Final, Resulted No growth Laboratory Tests 07/28/18 03:31 07/29/18 05:30 A/P: Assessment: Shortness of breath, probably due to vol overload Acute cholecystitis and probable gall stone pancreatitis, treated with lap jaquan on 07/26/18 Post-op anemia, improved after blood transfusion on 07/27/18, but trending down again Borderline DM II, managed by the Med Svce Hypertension, by history Plan: * Continue current regimen * Worsening anemia - management per medical/surgical services * Add enoxaparin for DVT prophylaxis if ok with the Med and Surg Svces * Monitor labs Physician Assessment Physician Assessment Reports shortness of breath. No cp or palp or syncope Lungs: good bilat air entry; a few basilar coarse and fine crackles Cor: reg Ext: no c/c. Mod bilat leg edema A&R * As documented in our note above that I updated (italics) and as noted below * Continue current regimen * iv diuretics today * Monitor labs HOLDEN JIMÉNEZ Jul 29, 2018 10:07 SIRIA DE LA PAZ MD [facility] Jul 29, 2018 19:08
[2018-07-29] MEDS ORDERED: ENOXAPARIN 40 MG/0.4 ML (LOVENOX) SYR SC SCH (10:36)
--- NOTE | 2018-07-29 10:38 | Physical Therapy Daily Note ---
PT Daily Note-Current Subjective Patient agrees to PT. On commode for BM. Pain Numeric Pain Scale: 0-No Pain Location: No Pain Reported Mental Status Patient Orientation: Person, Time, Situation Attachments: Oxygen, Osei Catheter, IV Transfers Therapy Code Descriptions/Definitions Functional [place] Measure: 0=Not Assessed/NA 4=Minimal Assistance 1=Total Assistance 5=Supervision or Setup 2=Maximal Assistance 6=Modified [place] 3=Moderate Assistance 7=Complete [place] Therapy Quality Codes: 6 Independent with activity with or without an assistive device 5 Patient requires set up or clean up by helper. Patient completes activity by themselves 4 Supervision or touching assist (CGA). [place] provide cues , steadying assist 3 The helper provides less than half the effort to complete the activity 2 The helper provides more than half the effort to complete the activity 1 Dependent. The helper does all the effort to complete an activity 7 Patient refused to complete or attempt activity 9 The patient did not perform the activity before the current illness or i njury 88 Not attempted due to Medical conditions or safety concerns Transfers (B, C, W/C) (FIM): 5 Scootin Sit to/from Stand: 5 Gait Training Gait (FIM): 5 Distance (FIM): 3=150 ft Distance: 700' Gait Level of Assist: 5 Gait Assistive Device: FWW safe and functional Assessment Patient is up in recliner with needs met. PT will see patient x 1 more session tomorrow then dismiss to nursing. PT Short Term Goals Short Term Goals Transfers (B,C,W/C) (FIM): 4 PT [employer]ener Goals Retirement Goals PT Retirement Goals Time Frame: Aug 03, 2018 Transfers (B,C,W/C) (FIM): 6 Gait (FIM): 6 Gait distance (FIM): 3=150 ft Distance: 150 ft Gait Level of Assist: 6 Gait Assistive Device: None, FWW PT Plan Treatment/Plan Treatment Plan: Continue Plan of Care Treatment Plan: Bed Mobility, Education, Functional Activity [place], Functional Strength, Gait, Safety, Therapeutic Exercise, Transfers Treatment Duration: Aug 03, 2018 Frequency: 6 times per week Estimated Hrs Per Day: .5 hour per day Patient and/or Family Agrees t: Yes Time/GCodes Time In: 1015 Time Out: 1026 Total Billed Treatment Time: 11 Total Billed Treatment 1 visit FA 11 min PAULINE ELIZABETH PT Jul 29, 2018 10:38
[2018-07-29] MEDS: AA 4.25% W/LYTES IN D5W IV SOL 1,000 ML IV SCH ×2 (11:45→21:07)
--- NOTE | 2018-07-29 12:08 | NUR ---
PRIOR TO NOON METOPROLOL PULSE WAS 80 B/P WAS 172/87.
--- NOTE | 2018-07-29 13:31 | Occupational Ther Daily Note ---
OT Current Status-Daily Note Subjective pt agreed to OT TX session with focus on increasing independence with ADLs/ functional transfers. pt complains of 5/10 abdomen pain. NSG made aware Mental Status/Objective Therapy Code Descriptions/Definitions Functional [place] Measure: 0=Not Assessed/NA 4=Minimal Assistance 1=Total Assistance 5=Supervision or Setup 2=Maximal Assistance 6=Modified [place] 3=Moderate Assistance 7=Complete [place] Attachments: Osei Catheter, IV, Oxygen ADL-Treatment Grooming (FIM): 6 (standing at sink usse of RW ) Lower Body Dressing (FIM): 5 ([place] socks sitting EOB. p education on figure four positioning . pt demo understanding. ) Toileting (FIM): 5 (3/3 toileting task. pt complains oif pain while seated to perform hygiene. pt educaiton on standing to complete task. ) Transfers (B, C, W/C) (FIM): 5 Toilet/Commode Transfer (FIM): 5 pt required increase timing to complete bed mobility supine to sit. pt required skilled education on log roll secondary to increase pain when perform task. pt verbalized understanding but required MAX cuing to perform task. noted limited activity tolerance during task. pt stated she does wear O2 at home PLOF. post OT session pt laying in bed, call light within reach, all needs met. Education OT Patient Education: Energy conservation, Modified ADL techniques, Progress toward Goal/Update tx plan, Purpose of tx/functional activities, Safety issues, Transfer techniques Teaching Recipient: Patient Teaching Methods: Demonstration, Discussion Response to Teaching: Verbalize Understanding, Return Demonstration OT Short Term Goals Short Term Goals Time Frame: Aug 03, 2018 Eating(FIM): 4 Grooming(FIM): 4 Bathing(FIM): 3 Upper Body Dressing(FIM): 4 Lower Body Dressing(FIM): 3 Toileting(FIM): 4 Transfers (B,C,W/C) (FIM): 4 Toilet/Commode Transfer(FIM): 4 Additional Short Term Goals: 1-Demonstrate ADL Tasks, 2-Verbalize Understanding, 3-ImproveStrength/[place] 1=Demonstrate adherence to instructed precautions during ADL tasks. 2=Patient will verbalize/demonstrate understanding of assistive de vices/modifications for ADL. 3=Patient will improve strength/tolerance for activity to enable patient to perform ADL's. OT Shelter Goals Shelter Goals Time Frame: Aug 10, 2018 Eating (FIM): 6 Grooming(FIM): 5 Bathing(FIM): 4 Upper Body Dressing(FIM): 5 Lower Body Dressing(FIM): 5 Toileting(FIM): 6 Transfers (B,C,W/C) (FIM): 6 Toilet/Commode Transfer(FIM): 6 Shower Transfer(FIM): 5 Additional Goals: 1-Demonstrate ADL Tasks, 2-Verbalize Understanding, 3- ImproveStrength/[place] 1=Demonstrate adherence to instructed precautions during ADL tasks. 2=Patient will verbalize/demonstrate understanding of assistive devices/modifica tions for ADL. 3=Patient will improve strength/tolerance for activity to enable patient to perform ADL's. OT Education/Plan Problem List/Assessment Assessment: Decreased Activ Tolerance, Decreased Safety Aware, Impaired Bed Mobility, Impaired Funct Balance, Impaired I ADL's, Impaired Self-Care Skills Discharge Recommendations Plan/Recommendations: Continue POC Treatment Plan/Plan of Care Treatment,Training & Education: Yes Patient would benefit from OT for education, treatment and training to promote independence in ADL's, mobility, safety and/or upper extremity function for ADL's. Plan of Care: ADL Retraining, Caregiver Training, Functional Mobility, UE Funct Exercise/Act Treatment Duration: Aug 10, 2018 Frequency: 5 times per week Estimated Hrs Per Day: .25 hour per day Agreement: Yes Rehab Potential: Good Time/GCodes Start Time: 13:03 Stop Time: 13:28 Billed Treatment Time ADL 25 minutes, 2 units NATALIIA FORD OT Jul 29, 2018 13:31
[2018-07-29] MEDS: fentaNYL INJECTION 100 MCG/2 ML AMP IV PRN ×2 (13:39→17:12)
--- NOTE | 2018-07-29 14:25 | Progress Note ---
Subjective Time Seen by a Provider: 13:46 Subjective/Events-last exam Pt seen and examined, states she still has some abdominal pain; but it is much better than before. She is hungry and wants to eat. Review of Systems Pulmonary: No Dyspnea, No Cough Cardiovascular: No: Chest Pain, Palpitations Gastrointestinal: No: Nausea, Vomiting Focused Exam Lactate Level 07/27/18 05:15: Lactic Acid Level 1.23 Objective Exam Vital Signs Date Time Temp Pulse Resp B/P (MAP) Pulse Ox O2 Delivery O2 Flow Rate FiO2 07/29/18 13:39 97.9 07/29/18 12:00 97.9 80 18 172/81 (111) 100 Nasal Cannula 3.00 3.00 07/29/18 11:21 Nasal Cannula 3.00 07/29/18 08:00 97 Nasal Cannula 3.00 07/29/18 08:00 97.7 84 18 170/84 (112) 99 Nasal Cannula 3.00 07/29/18 04:12 98.9 92 20 147/67 (93) 97 High Flow N/C 3.00 07/29/18 00:00 98.4 91 24 160/76 (104) 98 High Flow N/C 3.00 07/28/18 20:15 98 High Flow N/C 3.00 07/28/18 20:00 Nasal Cannula 3.00 07/28/18 20:00 98.8 98 20 158/67 (97) 97 High Flow N/C 3.00 07/28/18 15:36 97.7 87 20 142/74 (96) 99 High Flow N/C 3.00 I & O 07/29/18 06:59 Intake Total 1220 ml Output Total 2875 ml Balance -1655 ml Capillary Refill : Less Than 3 Seconds General Appearance: No Apparent Distress, WD/WN HEENT: PERRL/EOMI, Moist Mucous Membranes Respiratory: Chest Non Tender, Normal Breath Sounds, No Accessory Muscle Use, No Respiratory Distress Cardiovascular: Regular Rate, Rhythm, No Edema Gastrointestinal: normal bowel sounds, soft, no organomegaly, tenderness (across upper abdomen - improving), other (inc c/d/i) Extremity: No Calf Tenderness, No Pedal Edema Results Lab Laboratory Tests 07/28/18 15:32: Triglycerides Level 204H 07/29/18 05:30: Triglycerides Level 190H, White Blood Count 16.3H, Red Blood Count 2.76L, Hemoglobin 8.0L, Hematocrit 25L, Mean Corpuscular Volume 90, Mean Corpuscular Hemoglobin 29, Mean Corpuscular Hemoglobin Concent 32, Red Cell Distribution Width 14.4, Platelet Count 205, Mean Platelet Volume 10.0, Neutrophils (%) (Auto) 83H, Lymphocytes (%) (Auto) 9L, Monocytes (%) (Auto) 8, Eosinophils (%) (Auto) 0, Basophils (%) (Auto) 0, Neutrophils # (Auto) 13.5H, Lymphocytes # (Auto) 1.5, Monocytes # (Auto) 1.3H, Eosinophils # (Auto) 0.0, Basophils # (Auto) 0.0, Sodium Level 143, Potassium Level 4.2, Chloride Level 114H, Carbon Dioxide Level 20L, Anion Gap 9, Blood Urea Nitrogen 21H, Creatinine 0.82, Est imat Glomerular Filtration Rate > 60, BUN/Creatinine Ratio 26, Glucose Level 75, Calcium Level 8.8, Magnesium Level 1.8 Microbiology 07/25/18 Blood Culture - Preliminary, Resulted No growth 07/26/18 MRSA Screen - Final, Complete MRSA not isolated 07/25/18 Urine Culture - Final, Complete Escherichia coli Enterococcus faecalis 07/26/18 Gram Stain - Final, Resulted 07/26/18 Anaerobic Culture - Preliminary, Resulted No anaerobes isolated 07/26/18 Surgical Culture - Final, Resulted No growth Assessment/Plan Assessment/Plan Assessment/Plan S/P Lap [place] for acute Cholelithiasis/Cholecystitis Acute Pancreatitis Anemia HTN, Hypothyroidism Pt improving will start soft diet and encourage IS use and ambulation. Hold Lovenox since pt is ambulating. Clinical Quality Measures DVT/VTE Risk/Contraindication: Risk Factor Score Per Nursin RFS Level Per Nursing on Admit: 4+=Very High Other: SEE INTERVENTIONS FOR DETAILS ROSARIO MOJICA DO Jul 29, 2018 14:25
--- NOTE | 2018-07-29 14:54 | Pulmonary Progress Note ---
Subjective Time Seen by a Provider: 14:54 Subjective/Events-last exam No complications noted. Sepsis Event Evaluation Height, Weight, BMI Height: 5'2.00" Weight: 175lbs. 0.0oz. 79.982109ln; 32.0 BMI Method:Stated Focused Exam Lactate Level 07/27/18 05:15: Lactic Acid Level 1.23 Exam Exam Vital Signs Date Time Temp Pulse Resp B/P (MAP) Pulse Ox O2 Delivery O2 Flow Rate FiO2 07/29/18 13:39 97.9 07/29/18 12:00 97.9 80 18 172/81 (111) 100 Nasal Cannula 3.00 3.00 07/29/18 11:21 Nasal Cannula 3.00 07/29/18 08:00 97 Nasal Cannula 3.00 07/29/18 08:00 97.7 84 18 170/84 (112) 99 Nasal Cannula 3.00 07/29/18 04:12 98.9 92 20 147/67 (93) 97 High Flow N/C 3.00 07/29/18 00:00 98.4 91 24 160/76 (104) 98 High Flow N/C 3.00 07/28/18 20:15 98 High Flow N/C 3.00 07/28/18 20:00 Nasal Cannula 3.00 07/28/18 20:00 98.8 98 20 158/67 (97) 97 High Flow N/C 3.00 07/28/18 15:36 97.7 87 20 142/74 (96) 99 High Flow N/C 3.00 I & O 07/29/18 07:00 Intake Total 1220 ml Output Total 2875 ml Balance -1655 ml Height & Weight Height: 5'2.00" Weight: 175lbs. 0.0oz. 79.620284jp; 32.0 BMI Method:Stated General Appearance: No Apparent Distress, WD/WN HEENT: PERRL/EOMI, Moist Mucous Membranes Respiratory: Chest Non Tender, Normal Breath Sounds, No Accessory Muscle Use, No Respiratory Distress Cardiovascular: Regular Rate, Rhythm, No Edema Capillary Refill: Less Than 3 Seconds Gastrointestinal: normal bowel sounds, soft, no organomegaly, tenderness (across upper abdomen - improving), other (inc c/d/i) Extremity: No Calf Tenderness, No Pedal Edema Results Lab Laboratory Tests 07/28/18 03:31 6/17/19 05:30 Assessment/Plan Assessment/Plan Acute respiratory failure -resolved -regular NC -- titrate Pulmonary edema -Monitor for now Acute cholecystitis s/p surgery -Surgery following - Zosyn Acute pancreatitis -improved Anemia -Monitor CLARISSA CHEN DO Jul 29, 2018 14:54
--- NOTE | 2018-07-29 15:20 | NUR ---
Pastoral care visit.
[2018-07-29] MEDS ORDERED: FUROSEMIDE 40 MG/4 ML INJ (LASIX) IVP NR (19:15)
[2018-07-29] MEDS: MELATONIN 3 MG TABLET PO SCH (21:15)
[2018-07-30] VITALS (7 sets, daily range): BP systolic 135–174; BP diastolic 68–92
--- NOTE | 2018-07-30 | NUR ---
0000 DOSE OF IV LOPRESSOR HELD D/T BP OF 156/76, HR 81. PT IS NOT CURRENTLY ON TELEMETRY. WILL CONTINUE TO MONITOR VITALS AND ADMINISTER IF BP OR HR ELEVATED.
[2018-07-30] MEDS: PIPERACILLIN/TAZOBACTAM (BULK) 4.5 GM in NS (IVPB) 100 ML IV SCH ×3 (00:09→17:16)
[2018-07-30] MEDS: meTOprolol 5 MG/5 ML (LOPRESSOR) VIAL IV SCH ×2 (01:25→05:35)
[2018-07-30] MEDS: AA 4.25% W/LYTES IN D5W IV SOL 1,000 ML IV SCH (06:03)
[2018-07-30 06:08] LABS: BASOPHILS % (AUTO) 0 % (0-10); EOSINOPHILS # (AUTO) 0.1 10^3/uL (0.0-0.3); EOSINOPHILS % (AUTO) 1 % (0-10); HEMATOCRIT 28 % (35-52); LYMPHOCYTES # (AUTO) 1.8 X 10^3 (1.0-4.0); LYMPHOCYTES % (AUTO) 11 % (12-44); MEAN CORPUSCULAR HEMOGLOBIN 28 PG (25-34); MEAN CORPUSCULAR HGB CONC 32 G/DL (32-36); MEAN CORPUSCULAR VOLUME 88 FL (80-99); MONOCYTES # (AUTO) 1.5 X 10^3 (0.0-1.0); MONOCYTES % (AUTO) 9 % (0-12); NEUTROPHILS # (AUTO) 13.8 X 10^3 (1.8-7.8); NEUTROPHILS % (AUTO) 80 % (42-75); PLATELET COUNT 295 10^3/uL (130-400); WHITE BLOOD COUNT 17.1 10^3/uL (4.3-11.0)
--- NOTE | 2018-07-30 06:11 | Pulmonary Progress Note ---
Subjective Time Seen by a Provider: 07:00 Subjective/Events-last exam NO complications noted. Sepsis Event Evaluation Height, Weight, BMI Height: 5'2.00" Weight: 175lbs. 0.0oz. 79.590347tn; 32.0 BMI Method:Stated Exam Exam Vital Signs Date Time Temp Pulse Resp B/P (MAP) Pulse Ox O2 Delivery O2 Flow Rate FiO2 07/30/18 04:00 98.6 99 18 160/92 (114) 98 High Flow N/C 3.00 07/30/18 00:40 98.4 81 18 156/76 (102) 98 High Flow N/C 3.00 07/29/18 21:07 97 Nasal Cannula 3.00 07/29/18 19:20 99.8 85 20 146/69 (94) 99 Nasal Cannula 3.00 07/29/18 18:00 124/82 (96) 07/29/18 15:45 99.7 102 18 174/99 (124) 97 Nasal Cannula 2.00 07/29/18 13:39 97.9 07/29/18 12:00 97.9 80 18 172/81 (111) 100 Nasal Cannula 3.00 3.00 07/29/18 11:21 Nasal Cannula 3.00 07/29/18 08:00 97 Nasal Cannula 3.00 07/29/18 08:00 97.7 84 18 170/84 (112) 99 Nasal Cannula 3.00 I & O 07/30/18 07:00 Intake Total 4760 ml Output Total 1575 ml Balance 3185 ml Height & Weight Height: 5'2.00" Weight: 175lbs. 0.0oz. 79.125487rr; 32.0 BMI Method:Stated General Appearance: No Apparent Distress, WD/WN HEENT: PERRL/EOMI, Moist Mucous Membranes Respiratory: Chest Non Tender, Normal Breath Sounds, No Accessory Muscle Use, No Respiratory Distress Cardiovascular: Regular Rate, Rhythm, No Edema Capillary Refill: Less Than 3 Seconds Gastrointestinal: normal bowel sounds, soft, no organomegaly, tenderness (across upper abdomen - improving), other (inc c/d/i) Extremity: No Calf Tenderness, No Pedal Edema Neurologic/Psychiatric: Alert, Oriented x3 Results Lab Laboratory Tests 07/29/18 05:30 Assessment/Plan Assessment/Plan Acute respiratory failure -resolved -regular NC -- D/C if possible Pulmonary edema -Monitor for now -May need lasix. Check BNP Acute cholecystitis s/p surgery -Surgery following - Zosyn Acute pancreatitis -improved Anemia -Monitor CLARISSA CHEN DO Jul 30, 2018 06:11
[2018-07-30 06:33] LABS: BUN/CREATININE RATIO 34; CALCIUM 9.6 MG/DL (8.5-10.1); CARBON DIOXIDE 26 MMOL/L (21-32); CHLORIDE 101 MMOL/L (98-107); GFR ESTIMATED > 60; GLUCOSE 149 MG/DL (70-105); MAGNESIUM 1.7 MG/DL (1.8-2.4); POTASSIUM 3.1 MMOL/L (3.6-5.0); SODIUM 139 MMOL/L (135-145)
--- NOTE | 2018-07-30 06:51 | NUR ---
Dr Avila paged and notified that pt has been receiving IV lopressor without telemetry and is now tolerating PO intake. Orders received to DC IV Lopressor and start 50mg Toprol XL daily.
--- NOTE | 2018-07-30 08:17 | Cardiology Progress Note ---
Subjective Date Seen by Provider: Jul 30, 2018 Time Seen by Provider: 08:13 Subjective/Events-last exam Patient is in bed, still having some dyspnea, no chest pain, no syncope Review of Systems General: No Chills, No Night Sweats, No Fatigue, No Malaise, No Appetite, No Other HEENT: No Head Aches, No Visual Changes, No Eye Pain, No Ear Pain, No Dysphasia, No Sinus Congestion, No Post Nasal Drip, No Sore Throat, No Other Pulmonary: Dyspnea; No Cough, No Pleuritic Chest Pain, No Other Cardiovascular: No: Chest Pain, Palpitations, Orthopnea, Paroxysmal Noc. Dyspnea, Edema, Lt Headedness, Other Objective-Cardiology Exam Last Set of Vital Signs Vital Signs 07/28/18 07/30/18 04:00 04:00 Temp 98.6 Pulse 99 Resp 18 B/P (MAP) 160/92 (114) Pulse Ox 98 O2 Delivery High Flow N/C O2 Flow Rate 3.00 FiO2 35 Capillary Refill : Less Than 3 Seconds I&O Intake and Output 07/30/18 00:00 Intake Total 4810 ml Output Total 2500 ml Balance 2310 ml Intake Oral 460 ml IV Total 4080 ml Other 270 ml Output Urine Total 2475 ml Gastric Drainage Total 25 ml # Voids 3 # Bowel Movements 4 General: Alert, Oriented X3, Cooperative, No Acute Distress HEENT: Mucous Memb Moist/[place] Neck: Supple, No JVD Lungs: Normal Air Movement Heart: Regular Rate, Normal S1, Normal S2 Abdomen: Soft, Other (Bowel sounds are not noted on auscultation this morning) Extremities: No Clubbing, No Cyanosis Skin: No Rashes Neuro: Normal Speech, Strength at 5/5 X4 Ext Psych/Mental Status: Mental Status NL, Mood NL Results Lab Laboratory Tests 07/30/18 05:57 A/P-Cardiology Admission Diagnosis Acute cholecystitis Acute pancreatitis Sinus tachycardia Hypertension Assessment/Plan Status post Cholecystectomy, doing better, continue to monitor Hypokalemia, replace and monitor Acute pancreatitis, s/p cholecystectomy, better at this time Shortness of breath, bilateral pleural effusion, mild fluid overload, elevated BNP, evaluate echo Hypertension, monitor blood pressure Clinical Quality Measures DVT/VTE Risk/Contraindication: Risk Factor Score Per Nursin RFS Level Per Nursing on Admit: 4+=Very High Other: SEE INTERVENTIONS FOR DETAILS OSCAR LINARES MD Jul 30, 2018 08:17
[2018-07-30] MEDS: PANTOPRAZOLE 40 MG (PROTONIX) VIAL IV SCH (08:21)
[2018-07-30] MEDS ORDERED: FUROSEMIDE 40 MG/4 ML INJ (LASIX) IVP NR (08:30)
[2018-07-30] MEDS ORDERED: KCL 20 MEQ TAB (K-DUR) PO NR (08:30)
[2018-07-30] MEDS: POTASSIUM CL 10MEQ/50ML IVPB 50 ML IV SCH ×2 (08:33→09:48)
[2018-07-30] MEDS ORDERED: meTOproloL SUCCINATE 50 MG (TOPROL XL) TAB PO SCH (09:00)
--- NOTE | 2018-07-30 10:00 | NUR ---
RT HERE AND DC'D OXYGEN. SATS 97%.
--- NOTE | 2018-07-30 10:09 | Progress Note-Hospitalist ---
Subjective HPI/CC On Admission Date Seen by Provider: Jul 30, 2018 Time Seen by Provider: 09:30 Subjective/Events-last exam Pt doing very well Not an inpatient rehab candidate since she is too functional She did have purposeful incontinence last night because she didn't feel like getting up to go to the bathroom Bowel movement yesterday was normal Potassium at 3.1 is being supplemented Weening O2 off today IV Lasix given Clinimix DC since she is now eating a regular diet Review of Systems General: Fatigue Objective Exam Vital Signs Vital Signs Date Time Temp Pulse Resp B/P (MAP) Pulse Ox O2 Delivery O2 Flow Rate FiO2 07/30/18 16:00 99.3 91 22 145/82 (103) 95 Nasal Cannula 3.00 07/28/18 04:00 35 Capillary Refill : Less Than 3 Seconds General Appearance: No Apparent Distress, WD/WN, Chronically ill HEENT: PERRL/EOMI, Moist Mucous Membranes Respiratory: Chest Non Tender, Lungs Clear, Normal Breath Sounds, No Accessory Muscle Use, No Respiratory Distress Cardiovascular: Regular Rate, Rhythm, No Edema Gastrointestinal: No Organomegaly, No Pulsatile Mass, Soft, Abnormal Bowel Soun ds, Distended, Tenderness Back: Normal Inspection, No CVA Tenderness, No Vertebral Tenderness Extremity: No Calf Tenderness, No Pedal Edema Neurologic/Psychiatric: Alert, Oriented x3 Results/Procedures Lab Laboratory Tests 07/30/18 05:57 Patient resulted labs reviewed. Assessment/Plan Assessment and Plan Assess & Plan/Chief Complaint Assessment: s/p Lap [place] for acute Cholelithiasis/Cholecystitis Acute Pancreatitis Anemia HTN Hypothyroidism Debility Plan: Monitor closely Clinimix PT/OT Diagnosis/Problems Diagnosis/Problems (1) Cholecystitis, acute with cholelithiasis Status: Resolved Qualifiers: Biliary obstruction: with biliary obstruction Qualified Codes: K80.01 - Calculus of gallbladder with acute cholecystitis with obstruction Resolution Date/Time: 07/30/18 @ 19:27 (2) Pancreatitis due to biliary obstruction Status: Resolved Qualifiers: Chronicity: acute Acute pancreatitis complication: unspecified Qualified Codes: K85.10 - Biliary acute pancreatitis without necrosis or infection Resolution Date/Time: 07/30/18 @ 19:27 (3) Lactic acid acidosis Status: Resolved Resolution Date/Time: 07/30/18 @ 19:27 (4) Tachyarrhythmia Status: Resolved Resolution Date/Time: 07/30/18 @ 19:27 (5) Anemia Status: Acute Qualifiers: Anemia type: unspecified type Qualified Codes: D64.9 - Anemia, unspecified Clinical Quality Measures DVT/VTE Risk/Contraindication: Risk Factor Score Per Nursin RFS Level Per Nursing on Admit: 4+=Very High Other: SEE INTERVENTIONS FOR DETAILS LINCOLN MONK DO Jul 30, 2018 10:09
[2018-07-30] MEDS ORDERED: oxyCODONE/APAP 5/325MG (PERCOCET 5) TABLET PO PRN (10:45)
--- NOTE | 2018-07-30 10:50 | Physical Therapy Daily Note ---
PT Daily Note-Current Subjective Patient agrees to PT. No c/o. Pain Numeric Pain Scale: 0-No Pain Location: No Pain Reported Mental Status Patient Orientation: Person, Time, Situation Attachments: IV Transfers Therapy Code Descriptions/Definitions Functional [place] Measure: 0=Not Assessed/NA 4=Minimal Assistance 1=Total Assistance 5=Supervision or Setup 2=Maximal Assistance 6=Modified [place] 3=Moderate Assistance 7=Complete [place] Therapy Quality Codes: 6 Independent with activity with or without an assistive device 5 Patient requires set up or clean up by helper. Patient completes activity by themselves 4 Supervision or touching assist (CGA). [place] provide cues , steadying assist 3 The helper provides less than half the effort to complete the activity 2 The helper provides more than half the effort to complete the activity 1 Dependent. The helper does all the effort to complete an activity 7 Patient refused to complete or attempt activity 9 The patient did not perform the activity before the current illness or injury 88 Not attempted due to Medical conditions or safety concerns Transfers (B, C, W/C) (FIM): 6 Scootin Rollin Supine to/from Sit: 6 Sit to/from Stand: 6 Gait Training Gait (FIM): 6 Distance (FIM): 3=150 ft Distance: 500' Gait Level of Assist: 6 Gait Assistive Device: FWW safe and functional gait sequence Assessment Patient is currently at [facility] with all gross motor skills. PT to dismiss patient from services at this time and nursing to ambulate with patient PRN in hallway. Goals addressed and attained. PT Short Term Goals Short Term Goals Transfers (B,C,W/C) (FIM): 4 PT Restaurant Assistant Goals Assisted Goals PT Assisted Goals Time Frame: Aug 03, 2018 Transfers (B,C,W/C) (FIM): 6 Gait (FIM): 6 Gait distance (FIM): 3=150 ft Distance: 150 ft Gait Level of Assist: 6 Gait Assistive Device: None, FWW PT Plan Treatment/Plan Treatment Plan: Discontinue PT, goals met Treatment Plan: Bed Mobility, Education, Functional Activity Tatiana, Functional Strength, Gait, Safety, Therapeutic Exercise, Transfers Treatment Duration: Aug 03, 2018 Frequency: 6 times per week Estimated Hrs Per Day: .5 hour per day Patient and/or Family Agrees t: Yes Time/GCodes Time In: 1027 Time Out: 1040 Total Billed Treatment Time: 13 Total Billed Treatment 1 visit FA 13 min PAULINE ELIZABETH PT Jul 30, 2018 10:49
--- NOTE | 2018-07-30 11:11 | Occupational Ther Daily Note ---
OT Current Status-Daily Note Subjective Pt. does not report pain, just that she is tired. Appearance Pt. up on BSC when OT enters room. States that she has been trying to go "for awhile." Agrees to get off BSC. Mental Status/Objective Patient Orientation: Person, Place Therapy Code Descriptions/Definitions Functional [place] Measure: 0=Not Assessed/NA 4=Minimal Assistance 1=Total Assistance 5=Supervision or Setup 2=Maximal Assistance 6=Modified [place] 3=Moderate Assistance 7=Complete [place] Attachments: IV, Oxygen ADL-Treatment Grooming (FIM): 5 (SBA to wash face, brush hair.) Bathing (FIM): 5 (SBA to sponge bathe sitting on BSC. Pt. is able to wash all parts, including her feet by bringing them up to her.) Lower Body Dressing (FIM): 5 (SBA to doff/don slipper socks.) Toileting (FIM): 5 (SBA in stance to cleans front and back barbara area, and to pull up briefs.) Transfers (B, C, W/C) (FIM): 5 (SBA with walker to transfer from BSC to bed, and sit-supine.) Toilet/Commode Transfer (FIM): 5 Other Treatment Pt. agrees to work with OT. While attempting to toilet, pt. agrees to sponge bathe. Pt. is very thorough with cleansing under folds, under tummy area, and barbara area. Pt. is thorough with drying this area as well. Pt. dons fresh gown and slipper socks. Has clean brief on. Transfers back to bed and all needs are met. Education OT Patient Education: Correct positioning, Modified ADL techniques, Progress toward Goal/Update tx plan, Purpose of tx/functional activities, Reviewed precautions, Rehab process, Transfer techniques Teaching Recipient: Patient Teaching Methods: Demonstration, Discussion Response to Teaching: Verbalize Understanding, Return Demonstration OT Short Term Goals Short Term Goals Time Frame: Aug 03, 2018 Eating(FIM): 4 Grooming(FIM): 4 Bathing(FIM): 3 Upper Body Dressing(FIM): 4 Lower Body Dressing(FIM): 3 Toileting(FIM): 4 Transfers (B,C,W/C) (FIM): 4 Toilet/Commode Transfer(FIM): 4 Additional Short Term Goals: 1-Demonstrate ADL Tasks, 2-Verbalize Understanding, 3-ImproveStrength/Tatiana 1=Demonstrate adherence to instructed precautions during ADL tasks. 2=Patient will verbalize/demonstrate understanding of assistive devices/modifications for ADL. 3=Patient will improve strength/tolerance for activity to enable patient to perform ADL's. OT Prison Goals C Iron Worker Goals Time Frame: Aug 10, 2018 Eating (FIM): 6 Grooming(FIM): 5 Bathing(FIM): 4 Upper Body Dressing(FIM): 5 Lower Body Dressing(FIM): 5 Toileting(FIM): 6 Transfers (B,C,W/C) (FIM): 6 Toilet/Commode Transfer(FIM): 6 Shower Transfer(FIM): 5 Additional Goals: 1-Demonstrate ADL Tasks, 2-Verbalize Understanding, 3- ImproveStrength/Tatiana 1=Demonstrate adherence to instructed precautions during ADL tasks. 2=Patient will verbalize/demonstrate understanding of assistive devices/modifications for ADL. 3=Patient will improve strength/tolerance for activity to enable patient to perform ADL's. OT Education/Plan Problem List/Assessment Assessment: Decreased Activ Tolerance, Impaired I ADL's Discharge Recommendations Plan/Recommendations: Continue POC Therapy D/C Recommendations: Home w/ Family Support, Occupational Therapy Home Care, Scheduled Assistance Target Placement Pt. has caregiver support for cooking/cleaning/laundry. Would benefit from home health for continues strengthening and full independence with daily skills. Pt. reports that she has multiple resources from friends and family for assist. Treatment Plan/Plan of Care Treatment,Training & Education: Yes Patient would benefit from OT for education, treatment and training to promote independence in ADL's, mobility, safety and/or upper extremity function for ADL's. Plan of Care: ADL Retraining, Caregiver Training, Functional Mobility, UE Funct Exercise/Act Treatment Duration: Aug 10, 2018 Frequency: 5 times per week Estimated Hrs Per Day: .25 hour per day Agreement: Yes Rehab Potential: Good Time/GCodes Start Time: 09:00 Stop Time: 09:35 Total Time Billed (hr/min): 35 Billed Treatment Time 1, ADL x 2 HALLEY BURKS OT Jul 30, 2018 11:11
--- NOTE | 2018-07-30 13:17 | NUR ---
HAS REFUSED TO AMBULATE OUT OF ROOM WITH STAFF OR SIT IN CHAIR. DID WORK WITH PT. INCONTINENT OF URINE IN BED.
--- NOTE | 2018-07-30 13:51 | NUR ---
CM/SS, interviewed for post hospital planning. PLAN: Return to her senior housing unit in [facility]. She will need [facility] transport arranged and is requesting "Lisa" if available. Lisa normally transports her for errands and appointments and is described as very caring and will assist patient in/out if she needs it. IN-HOME SERVICES: Patient has [facility] 10 hours weekly of assistance. [email or web address] nurse case management is Trinh and patient describes her as very caring and supportive, last name not known. Patient has established residence in senior housing as noted. She states there is an office there open daily and that she has a med alert button in case of emergency. The traffic signal supervisor maintenance also lives one block away which she can access as needed. Patient does not drive but does walk for her errands because she resides within 2 blocks of post office, two [place], laundromat, and grocery store. She has a basket that she takes for her shopping/errands. Patient does have a washer/dryer in her apartment so does not have to take out laundry. She has FWW but does not routinely use it; she did indicate she would use it for a couple of weeks to protect herself from falls. She describes spending a lot of time in the bathroom because of her diverticulitis and that she is incontinent at times. Patient has never had or needed home O2 and is not on O2 at this time. Patient has two cats, female Princess Perez and her grown kitten Corbin Boy. She tells many stories about how they keep her spirits up and what good companions they are. They seem extremely important in her life balance. Sister Amanda Levi resides in [facility], she has a brother who resides in [place] but she has no relationship with him. Home self-care at md, [facility] transport.
--- NOTE | 2018-07-30 15:37 | NUR ---
REPORT TO GIFTY JESUS.
[2018-07-30] MEDS ORDERED: PRAMIPEXOLE 0.5 MG TAB (MIRAPEX) PO PRN (21:00)
[2018-07-30] MEDS: ATORVASTATIN 80 MG (LIPITOR) TABLET PO SCH (21:19)
[2018-07-30] MEDS: MELATONIN 3 MG TABLET PO SCH (21:19)
[2018-07-31] MEDS: PIPERACILLIN/TAZOBACTAM (BULK) 4.5 GM in NS (IVPB) 100 ML IV SCH ×2 (00:13→16:50)
[2018-07-31 04:39] VITALS: BP 114/65
[2018-07-31 05:16] LABS: BASOPHILS # (AUTO) 0.1 10^3/uL (0.0-0.1); BASOPHILS % (AUTO) 0 % (0-10); EOSINOPHILS # (AUTO) 0.3 10^3/uL (0.0-0.3); EOSINOPHILS % (AUTO) 1 % (0-10); HEMATOCRIT 30 % (35-52); HEMOGLOBIN 9.6 G/DL (11.5-16.0); LYMPHOCYTES # (AUTO) 2.7 X 10^3 (1.0-4.0); LYMPHOCYTES % (AUTO) 13 % (12-44); MEAN CORPUSCULAR HEMOGLOBIN 29 PG (25-34); MEAN CORPUSCULAR HGB CONC 32 G/DL (32-36); MEAN CORPUSCULAR VOLUME 88 FL (80-99); MEAN PLATELET VOLUME 10.2 FL (7.4-10.4); MONOCYTES # (AUTO) 1.6 X 10^3 (0.0-1.0); MONOCYTES % (AUTO) 8 % (0-12); NEUTROPHILS # (AUTO) 15.6 X 10^3 (1.8-7.8); NEUTROPHILS % (AUTO) 77 % (42-75); PLATELET COUNT 345 10^3/uL (130-400); RED CELL DISTRIBUTION WIDTH 14.2 % (10.0-14.5); WHITE BLOOD COUNT 20.3 10^3/uL (4.3-11.0)
[2018-07-31 05:39] LABS: BUN/CREATININE RATIO 32; CALCIUM 9.6 MG/DL (8.5-10.1); CARBON DIOXIDE 26 MMOL/L (21-32); CHLORIDE 102 MMOL/L (98-107); CREATININE SERUM 0.87 MG/DL (0.60-1.30); GFR ESTIMATED > 60; GLUCOSE 106 MG/DL (70-105); MAGNESIUM 1.8 MG/DL (1.8-2.4); POTASSIUM 3.4 MMOL/L (3.6-5.0); SODIUM 141 MMOL/L (135-145)
[2018-07-31] MEDS: ASCORBIC ACID (VIT C) 500 MG TABLET PO SCH (06:04)
[2018-07-31] MEDS: MULTIVIT W/MINERALS TAB (THERAGRAN M) PO SCH (06:04)
[2018-07-31 08:00] VITALS: BP 142/77
[2018-07-31] MEDS ORDERED: NON-FORMULARY MEDICATION 1 EA EA (Vitamin B Complex (B Complex) 1 TAB) PO SCH (09:00)
[2018-07-31] MEDS ORDERED: ANASTROZOLE 1 MG PO SCH (09:00)
--- NOTE | 2018-07-31 09:31 | Cardiology Progress Note ---
Subjective Date Seen by Provider: Jul 31, 2018 Time Seen by Provider: 09:29 Subjective/Events-last exam Patient is in bed, feeling better, no new complaint Review of Systems General: No Chills, No Night Sweats, No Fatigue, No Malaise, No Appetite, No Other HEENT: No Head Aches, No Visual Changes, No Eye Pain, No Ear Pain, No Dysphasia, No Sinus Congestion, No Post Nasal Drip, No Sore Throat, No Other Pulmonary: No Dyspnea, No Cough, No Pleuritic Chest Pain, No Other Cardiovascular: No: Chest Pain, Palpitations, Orthopnea, Paroxysmal Noc. Dyspnea, Edema, Lt Headedness, Other Objective-Cardiology Exam Last Set of Vital Signs Vital Signs 07/28/18 07/30/18 07/31/18 04:00 16:00 04:39 Temp 98.8 Pulse 86 Resp 30 B/P (MAP) 114/65 (81) Pulse Ox 92 O2 Delivery Room Air O2 Flow Rate 3.00 FiO2 35 Capillary Refill : Less Than 3 SecondsLess Than 3 Seconds I&O Intake and Output 07/31/18 00:00 Intake Total 3330 ml Output Total 1550 ml Balance 1780 ml Intake Oral 1470 ml IV Total 1860 ml Output Urine Total 1550 ml # Voids 12 # Bowel Movements 9 General: Alert, Oriented X3, Cooperative, No Acute Distress HEENT: Mucous Memb Moist/[place] Neck: Supple, No JVD Lungs: Normal Air Movement Heart: Regular Rate, Normal S1, Normal S2 Abdomen: Soft, Other (Bowel sounds are not noted on auscultation this morning) Extremities: No Clubbing, No Cyanosis Skin: No Rashes Neuro: Normal Speech, Strength at 5/5 X4 Ext Psych/Mental Status: Mental Status NL, Mood NL Results Lab Laboratory Tests 07/31/18 05:05 A/P-Cardiology Admission Diagnosis Acute cholecystitis Acute pancreatitis Sinus tachycardia Hypertension Assessment/Plan Status post Cholecystectomy, doing better, managed by primary care team Hypokalemia, replace and monitor, managed by primary care team Acute pancreatitis, s/p cholecystectomy, better at this time Shortness of breath, bilateral pleural effusion, mild fluid overload, elevated BNP, evaluate echo Hypertension, monitor blood pressure Clinical Quality Measures DVT/VTE Risk/Contraindication: Risk Factor Score Per Nursin RFS Level Per Nursing on Admit: 4+=Very High Other: SEE INTERVENTIONS FOR DETAILS OSCAR LINARES MD Jul 31, 2018 09:31
[2018-07-31] MEDS: PANTOPRAZOLE 40 MG (PROTONIX) TAB PO SCH (10:13)
[2018-07-31] MEDS: ASPIRIN E.C. 81 MG (ECOTRIN) TAB PO SCH (10:13)
[2018-07-31] MEDS: meTOprolol SUCCINATE 100 MG (TOPROL XL) TAB PO SCH (10:13)
[2018-07-31 12:00] VITALS: BP 131/81
--- NOTE | 2018-07-31 12:13 | Progress Note-Hospitalist ---
Subjective HPI/CC On Admission Date Seen by Provider: Jul 31, 2018 Time Seen by Provider: 09:30 Subjective/Events-last exam WBC count increased to 20 but no fever and no source of that. Walking with PT and back to prior level of functioning. Off oxygen. No pain is reported. Checked meds and labs. Likely discharge tomorrow and follow up with reactive white count since that appears to be just what it is. Review of Systems General: Fatigue Objective Exam Vital Signs Vital Signs Date Time Temp Pulse Resp B/P (MAP) Pulse Ox O2 Delivery O2 Flow Rate FiO2 07/31/18 19:41 Room Air 07/31/18 15:24 98.4 89 24 152/79 (103) 96 07/31/18 08:00 3.00 07/28/18 04:00 35 Capillary Refill : Less Than 3 SecondsLess Than 3 Seconds General Appearance: No Apparent Distress, WD/WN, Chronically ill HEENT: PERRL/EOMI, Moist Mucous Membranes Respiratory: Chest Non Tender, Lungs Clear, Normal Breath Sounds, No Accessory Muscle Use, No Respiratory Distress Cardiovascular: Regular Rate, Rhythm, No Edema Gastrointestinal: Normal Bowel Sounds, No Organomegaly, No Pulsatile Mass, Non Tender, Soft Back: Normal Inspection, No CVA Tenderness, No Vertebral Tenderness Extremity: No Calf Tenderness, No Pedal Edema Neurologic/Psychiatric: Alert, Oriented x3 Results/Procedures Lab Laboratory Tests 07/31/18 05:05 Patient resulted labs reviewed. Assessment/Plan Assessment and Plan Assess & Plan/Chief Complaint Assessment: s/p Lap Choly for acute Cholelithiasis/Cholecystitis Acute Pancreatitis Anemia HTN Hypothyroidism Debility Leukocytosis Plan: Monitor closely Clinim[facility] DC PT/OT Diagnosis/Problems Diagnosis/Problems (1) Cholecystitis, acute with cholelithiasis Status: Resolved Qualifiers: Biliary obstruction: with biliary obstruction Qualified Codes: K80.01 - Calculus of gallbladder with acute cholecystitis with obstruction Resolution Date/Time: 07/30/18 @ 19:27 (2) Pancreatitis due to biliary obstruction Status: Resolved Qualifiers: Chronicity: acute Acute pancreatitis complication: unspecified Qualified Codes: K85.10 - Biliary acute pancreatitis without necrosis or infection Resolution Date/Time: 07/30/18 @ 19:27 (3) Lactic acid acidosis Status: Resolved Resolution Date/Time: 07/30/18 @ 19:27 (4) Tachyarrhythmia Status: Resolved Resolution Date/Time: 07/30/18 @ 19:27 (5) Anemia Status: Acute Qualifiers: Anemia type: unspecified type Qualified Codes: D64.9 - Anemia, unspecified Clinical Quality Measures DVT/VTE Risk/Contraindication: Risk Factor Score Per Nursin RFS Level Per Nursing on Admit: 4+=Very High Other: SEE INTERVENTIONS FOR DETAILS LINCOLN MONK DO Jul 31, 2018 12:13
--- NOTE | 2018-07-31 12:54 | Occupational Ther Daily Note ---
OT Current Status-Daily Note Subjective Pt alert, sitting on BSC. Agrees to therapy. No c/o pain. Mental Status/Objective Patient Orientation: Person, Place, Time, Situation Therapy Code Descriptions/Definitions Functional [place] Measure: 0=Not Assessed/NA 4=Minimal Assistance 1=Total Assistance 5=Supervision or Setup 2=Maximal Assistance 6=Modified [place] 3=Moderate Assistance 7=Complete [place] ADL-Treatment Toileting (FIM): 5 (SBA with cleansing and manipulating clothing.) Toilet/Commode Transfer (FIM): 5 (SBA with transfers.) Other Treatment Pt able to ambulate using FWW, no LOB noted. Recovery breaks needed. Independent with bed mobility. After therapy, pt lying in bed with call light/phone in reach. All needs met in room. OT Short Term Goals Short Term Goals Time Frame: Aug 03, 2018 Eating(FIM): 4 Grooming(FIM): 4 Bathing(FIM): 3 Upper Body Dressing(FIM): 4 Lower Body Dressing(FIM): 3 Toileting(FIM): 4 Transfers (B,C,W/C) (FIM): 4 Toilet/Commode Transfer(FIM): 4 Additional Short Term Goals: 1-Demonstrate ADL Tasks, 2-Verbalize Understanding, 3-ImproveStrength/[place] 1=Demonstrate adherence to instructed precautions during ADL tasks. 2=Patient will verbalize/demonstrate understanding of assistive devices/modifications for ADL. 3=Patient will improve strength/tolerance for activity to enable patient to perform ADL's. OT Admitting Coordinator Goals Jail Goals Time Frame: Aug 10, 2018 Eating (FIM): 6 Grooming(FIM): 5 Bathing(FIM): 4 Upper Body Dressing(FIM): 5 Lower Body Dressing(FIM): 5 Toileting(FIM): 6 Transfers (B,C,W/C) (FIM): 6 Toilet/Commode Transfer(FIM): 6 Shower Transfer(FIM): 5 Additional Goals: 1-Demonstrate ADL Tasks, 2-Verbalize Understanding, 3- ImproveStrength/[place] 1=Demonstrate adherence to instructed precautions during ADL tasks. 2=Patient will verbalize/demonstrate understanding of assistive devices/modifications for ADL. 3=Patient will improve strength/tolerance for activity to enable patient to perform ADL's. OT Education/Plan Problem List/Assessment Assessment: Decreased Activ Tolerance Discharge Recommendations Plan/Recommendations: Continue POC Treatment Plan/Plan of Care Patient would benefit from OT for education, treatment and training to promote independence in ADL's, mobility, safety and/or upper extremity function for ADL's. Plan of Care: ADL Retraining, Caregiver Training, Functional Mobility, UE Funct Exercise/Act Treatment Duration: Aug 10, 2018 Frequency: 5 times per week Estimated Hrs Per Day: .25 hour per day Agreement: Yes Rehab Potential: Good Time/GCodes Start Time: 10:50 Stop Time: 11:13 Total Time Billed (hr/min): 23 Billed Treatment Time 1 visit-ADL 2 (23 min) FAVIO RIOS Jul 31, 2018 12:54
[2018-07-31 15:24] VITALS: BP 152/79
--- NOTE | 2018-07-31 15:47 | Pulmonary Progress Note ---
Subjective Time Seen by a Provider: 13:02 Subjective/Events-last exam Pt feels improved. Sepsis Event Evaluation Height, Weight, BMI Height: 5'2.00" Weight: 184lbs. 3.0oz. 83.773034wd; 32.0 BMI Method:Stated Exam Exam Vital Signs Date Time Temp Pulse Resp B/P (MAP) Pulse Ox O2 Delivery O2 Flow Rate FiO2 07/31/18 15:24 98.4 89 24 152/79 (103) 96 Room Air 07/31/18 12:00 98.8 97 18 131/81 (98) 96 Room Air 07/31/18 08:00 Nasal Cannula 3.00 07/31/18 08:00 98.8 88 20 142/77 (98) 94 Room Air 07/31/18 04:39 98.8 86 30 114/65 (81) 92 Room Air 07/30/18 23:19 99.3 87 20 148/68 (94) 93 Room Air 07/30/18 20:30 Room Air 07/30/18 20:00 99.2 92 22 135/70 (91) 94 Room Air 07/30/18 16:00 99.3 91 22 145/82 (103) 95 Nasal Cannula 3.00 I & O 07/31/18 07:00 Intake Total 2210 ml Output Total 550 ml Balance 1660 ml Height & Weight Height: 5'2.00" Weight: 184lbs. 3.0oz. 83.882653vj; 32.0 BMI Method:Stated General Appearance: No Apparent Distress, WD/WN, Chronically ill HEENT: PERRL/EOMI, Moist Mucous Membranes Respiratory: Chest Non Tender, Lungs Clear, Normal Breath Sounds, No Accessory Muscle Use, No Respiratory Distress Cardiovascular: Regular Rate, Rhythm, No Edema Capillary Refill: Less Than 3 Seconds Gastrointestinal: normal bowel sounds, soft, no organomegaly, tenderness (across upper abdomen - improving), other (inc c/d/i) Extremity: No Calf Tenderness, No Pedal Edema Neurologic/Psychiatric: Alert, Oriented x3 Results Lab Laboratory Tests 07/30/18 05:57 07/31/18 05:05 Assessment/Plan Assessment/Plan Pulmonary edema -Monitor for now -May need lasix. Check BNP -Titrate oxygen Acute cholecystitis s/p surgery -Surgery following - Zosyn Acute pancreatitis -improved Anemia -Monitor CLARISSA CHEN DO Jul 31, 2018 15:47
[2018-07-31 20:10] VITALS: BP 127/74
[2018-07-31] MEDS: MELATONIN 3 MG TABLET PO SCH (20:51)
[2018-07-31] MEDS: ATORVASTATIN 80 MG (LIPITOR) TABLET PO SCH (20:51)
[2018-07-31 23:28] VITALS: BP 119/66
[2018-08-01] MEDS: PIPERACILLIN/TAZOBACTAM (BULK) 4.5 GM in NS (IVPB) 100 ML IV SCH ×2 (00:36→08:06)
[2018-08-01 03:47] VITALS: BP 113/68
[2018-08-01 05:02] LABS: BASOPHILS % (AUTO) 0 % (0-10); EOSINOPHILS # (AUTO) 0.4 10^3/uL (0.0-0.3); EOSINOPHILS % (AUTO) 2 % (0-10); HEMATOCRIT 29 % (35-52); HEMOGLOBIN 9.2 G/DL (11.5-16.0); LYMPHOCYTES # (AUTO) 2.3 X 10^3 (1.0-4.0); LYMPHOCYTES % (AUTO) 15 % (12-44); MEAN CORPUSCULAR HEMOGLOBIN 29 PG (25-34); MEAN CORPUSCULAR HGB CONC 32 G/DL (32-36); MEAN CORPUSCULAR VOLUME 89 FL (80-99); MEAN PLATELET VOLUME 9.9 FL (7.4-10.4); MONOCYTES # (AUTO) 1.5 X 10^3 (0.0-1.0); MONOCYTES % (AUTO) 10 % (0-12); NEUTROPHILS # (AUTO) 11.3 X 10^3 (1.8-7.8); NEUTROPHILS % (AUTO) 73 % (42-75); PLATELET COUNT 385 10^3/uL (130-400); RED CELL DISTRIBUTION WIDTH 14.7 % (10.0-14.5); WHITE BLOOD COUNT 15.6 10^3/uL (4.3-11.0)
[2018-08-01 05:21] LABS: BUN/CREATININE RATIO 30; CALCIUM 9.6 MG/DL (8.5-10.1); CARBON DIOXIDE 27 MMOL/L (21-32); CHLORIDE 104 MMOL/L (98-107); CREATININE SERUM 0.86 MG/DL (0.60-1.30); GFR ESTIMATED > 60; GLUCOSE 97 MG/DL (70-105); MAGNESIUM 1.7 MG/DL (1.8-2.4); POTASSIUM 3.4 MMOL/L (3.6-5.0); SODIUM 141 MMOL/L (135-145)
[2018-08-01] MEDS: ASCORBIC ACID (VIT C) 500 MG TABLET PO SCH (06:23)
[2018-08-01] MEDS: MULTIVIT W/MINERALS TAB (THERAGRAN M) PO SCH (06:23)
[2018-08-01 07:58] VITALS: BP 143/67
[2018-08-01] MEDS: ASPIRIN E.C. 81 MG (ECOTRIN) TAB PO SCH (08:06)
[2018-08-01] MEDS: PANTOPRAZOLE 40 MG (PROTONIX) TAB PO SCH (08:06)
[2018-08-01] MEDS: meTOprolol SUCCINATE 100 MG (TOPROL XL) TAB PO SCH (08:06)
[2018-08-01] MEDS ORDERED: ANASTROZOLE 1 MG TAB (ARIMIDEX) PO SCH (09:00)
--- NOTE | 2018-08-01 09:04 | Cardiology Progress Note ---
Subjective Date Seen by Provider: Aug 01, 2018 Time Seen by Provider: 09:01 Subjective/Events-last exam Patient is in bed, feeling better, no new complaint Objective-Cardiology Exam Last Set of Vital Signs Vital Signs 07/28/18 08/01/18 04:00 07:58 Temp 98.2 Pulse 82 Resp 20 B/P (MAP) 143/67 (92) Pulse Ox 97 O2 Delivery Room Air FiO2 35 Capillary Refill : Less Than 3 SecondsLess Than 3 Seconds I&O Intake and Output 08/01/18 00:00 Intake Total 1550 ml Balance 1550 ml Intake Oral 1310 ml IV Total 240 ml # Voids 10 # Bowel Movements 5 General: Alert, Oriented X3, Cooperative, No Acute Distress HEENT: Mucous Memb Moist/[place]ck: Supple, No JVD Lungs: Normal Air Movement Heart: Regular Rate, Normal S1, Normal S2 Abdomen: Soft, Other (Bowel sounds are not noted on auscultation this morning) Extremities: No Clubbing, No Cyanosis Skin: No Rashes Neuro: Normal Speech, Strength at 5/5 X4 Ext Psych/Mental Status: Mental Status NL, Mood NL Results Lab Laboratory Tests 08/01/18 04:59 A/P-Cardiology Admission Diagnosis Acute cholecystitis Acute pancreatitis Sinus tachycardia Hypertension Assessment/Plan Status post Cholecystectomy, doing better, managed by primary care team Hypokalemia, Hypomagnesemia, continue to replace and monitor Status post acute pancreatitis, s/p cholecystectomy, better at this time Shortness of breath, bilateral pleural effusion, mild fluid overload, elevated BNP, evaluate echo Hypertension, better control, continue to monitor Clinical Quality Measures DVT/VTE Risk/Contraindication: Risk Factor Score Per Nursin RFS Level Per Nursing on Admit: 4+=Very High Other: SEE INTERVENTIONS FOR DETAILS OSCAR LINARES MD Aug 01, 2018 9:04 am
--- NOTE | 2018-08-01 09:55 | Pulmonary Progress Note ---
Subjective Time Seen by a Provider: 13:01 Subjective/Events-last exam No complications noted. Sepsis Event Evaluation Height, Weight, BMI Height: 5'2.00" Weight: 184lbs. 3.0oz. 83.295537bm; 32.0 BMI Method:Stated Exam Exam Vital Signs Date Time Temp Pulse Resp B/P (MAP) Pulse Ox O2 Delivery O2 Flow Rate FiO2 08/01/18 07:58 98.2 82 20 143/67 (92) 97 Room Air 08/01/18 03:47 98.6 79 22 113/68 (83) 94 Room Air 07/31/18 23:28 98.6 85 18 119/66 (83) 96 Room Air 07/31/18 20:10 98.5 86 22 127/74 (91) 97 Room Air 07/31/18 19:41 Room Air 07/31/18 15:24 98.4 89 24 152/79 (103) 96 Room Air 07/31/18 12:00 98.8 97 18 131/81 (98) 96 Room Air I & O 08/01/18 07:00 Intake Total 1650 ml Balance 1650 ml Height & Weight Height: 5'2.00" Weight: 184lbs. 3.0oz. 83.017060vy; 32.0 BMI Method:Stated General Appearance: No Apparent Distress, WD/WN, Chronically ill HEENT: PERRL/EOMI, Moist Mucous Membranes Respiratory: Chest Non Tender, Lungs Clear, Normal Breath Sounds, No Accessory Muscle Use, No Respiratory Distress Cardiovascular: Regular Rate, Rhythm, No Edema Capillary Refill: Less Than 3 Seconds Gastrointestinal: normal bowel sounds, soft, no organomegaly, tenderness (across upper abdomen - improving), other (inc c/d/i) Extremity: No Calf Tenderness, No Pedal Edema Neurologic/Psychiatric: Alert, Oriented x3 Results Lab Laboratory Tests 07/31/18 05:05 08/01/18 04:59 Assessment/Plan Assessment/Plan Pulmonary edema -Monitor for now -Pt is now on RA Acute cholecystitis s/p surgery -Surgery following - Zosyn Acute pancreatitis -improved Anemia -Monitor I am going to sign off please call with any questions. CLARISSA CHEN DO Aug 01, 2018 09:55
--- NOTE | 2018-08-01 10:42 | Discharge Summary-Hospitalist ---
Diagnosis/Chief Complaint Date of Admission Jul 25, 2018 at 08:00 Date of Discharge Discharge Date: Aug 01, 2018 Discharge Diagnosis (1) Cholecystitis, acute with cholelithiasis Status: Resolved (2) Pancreatitis due to biliary obstruction Status: Resolved (3) Lactic acid acidosis Status: Resolved (4) Tachyarrhythmia Status: Resolved (5) Anemia Status: Acute Discharge Summary Discharge Physical Exam Allergies: Coded Allergies: Zeirgls-Ucc-Epn Reductase Inhibitor (Verified Allergy, Unknown, Takes Atorvastatin at home, 07/30/18) Sulfa (Sulfonamide Antibiotics) (Verified Allergy, Unknown, 07/25/18) codeine (Verified Allergy, Unknown, Pt takes Percocet at home, 07/30/18) lisinopril (Verified Allergy, Unknown, 07/25/18) Vitals & I&Os Vital Signs Date Time Temp Pulse Resp B/P (MAP) Pulse Ox O2 Delivery O2 Flow Rate FiO2 08/01/18 17:15 82 20 143/67 97 Room Air 3.00 08/01/18 07:58 98.2 07/28/18 04:00 35 General Appearance: No Apparent Distress, WD/WN Respiratory: Chest Non Tender, Lungs Clear, Normal Breath Sounds, No Accessory Muscle Use, No Respiratory Distress Cardiovascular: Regular Rate, Rhythm, No Edema, No Gallop, No JVD, No Murmur, Normal Peripheral Pulses Neurologic/Psychiatric: Alert, Oriented x3, No Motor/Sensory Deficits, Normal Mood/Affect Hospital Course Was the Problem List Reviewed?: Yes Hospital Course: PT had a lengthy hospital course for 8 days after she was found to have cholecystitis with cholelithiasis and pancreatitis resulting in uncomplicated cholecystectomy by Dr. Sun. She was placed on bowel rest, IV fluids, supportive care, pain medication, and monitored closely. She recovered slowly, was able to ambulate with PT back to her prior level of functioning. She was able to withstand oral nutrition and fluids. White count came down to 15 due to reactive process from her acute illness and she was deemed stable for DC, completed IV antibiotics in the hospital and will restart all of her home medication and see [facility] in close follow up. Labs (last 24 hrs) Laboratory Tests 08/01/18 04:59: White Blood Count 15.6H, Red Blood Count 3.20L, Hemoglobin 9.2L, Hematocrit 29L, Mean Corpuscular Volume 89, Mean Corpuscular Hemoglobin 29, Mean Corpuscular Hemoglobin Concent 32, Red Cell Distribution Width 14.7H, Platelet Count 385, Mean Platelet Volume 9.9, Neutrophils (%) (Auto) 73, Lymphocytes (%) (Auto) 15, Monocytes (%) (Auto) 10, Eosinophils (%) (Auto) 2, Basophils (%) (Auto) 0, Neutrophils # (Auto) 11.3H, Lymphocytes # (Auto) 2.3, Monocytes # (Auto) 1.5H, Eosinophils # (Auto) 0.4H, Basophils # (Auto) 0.0, Sodium Level 141, Potassium Level 3.4L, Chloride Level 104, Carbon Dioxide Level 27, Anion Gap 10, Blood Urea Nitrogen 26H, Creatinine 0.86, Estimat Glomerular Filtration Rate > 60, BUN/Creatinine Ratio 30, Glucose Level 97, Calcium Level 9.6, Magnesium Level 1.7L Microbiology 07/25/18 Blood Culture - Final, Complete No growth 07/26/18 MRSA Screen - Final, Complete MRSA not isolated 07/25/18 Urine Culture - Final, Complete Escherichia coli Enterococcus faecalis 07/26/18 Gram Stain - Final, Complete 07/26/18 Anaerobic Culture - Final, Complete No anaerobes isolated 07/26/18 Surgical Culture - Final, Complete No growth Patient resulted labs reviewed. Pending Labs Discussion & Recommendations Discharge Planning: <30 minutes discharge planning Discharge Home Medications: Active Scripts Active Reported Vitamin C (Ascorbate Calcium) 500 Mg Tablet 500 Mg PO DAILY B Complex (Vitamin B Complex) 1 Each Tablet 1 Tab PO DAILY Multivitamins (Multivitamin) 1 Each Tablet 1 Tab PO DAILY Aspirin EC (Aspirin) 81 Mg Tablet.dr 81 Mg PO DAILY Anastrozole 1 Mg Tablet 1 Mg PO DAILY Esomeprazole Magnesium 40 Mg Capsule.dr 40 Mg PO DAILY Atorvastatin Calcium 80 Mg Tablet 80 Mg PO HS Pramipexole Dihydrochloride (Pramipexole Di-HCl) 0.5 Mg Tablet 0.5 Mg PO HS PRN Metoprolol Succinate 100 Mg Tab.er.24h 100 Mg PO DAILY Oxycodone-Acetaminophen 5-325 (Oxycodone HCl/Acetaminophen) 1 Each Tablet 1 Tab PO TID PRN Instructions to patient/family Please see electronic discharge instructions given to patient. Clinical Quality Measures DVT/VTE Risk/Contraindication: Risk Factor Score Per Nursin RFS Level Per Nursing on Admit: 4+=Very High Other: SEE INTERVENTIONS FOR DETAILS Problem Qualifiers (1) Cholecystitis, acute with cholelithiasis: Biliary obstruction: with biliary obstruction Qualified Codes: K80.01 - Calculus of gallbladder with acute cholecystitis with obstruction (2) Pancreatitis due to biliary obstruction: Chronicity: acute Acute pancreatitis complication: unspecified Qualified Codes: K85.10 - Biliary acute pancreatitis without necrosis or infection (3) Anemia: Anemia type: unspecified type Qualified Codes: D64.9 - Anemia, unspecified LINCOLN MONK DO Aug 01, 2018 10:42
--- NOTE | 2018-08-01 15:12 | NUR ---
CM/SS, patient discharged home as planned. TRANSPORT: Coordinated with [facility], Ride #[id number]. They understand patient is ready now, they will be here in a window of 30 min - 3 hours. Provided Unit RN phone number for call when they are out front. Patient's street address is [address] [place] [address], [facility], [place] [address].
[2018-08-01 17:15] VITALS: BP 143/67
== END 2018-08-01 15:33 | disposition home or self-care (01) | DRG 417 ==
LOC: ER FS 04:24 → 4TH 08:00 → ICU 07-26 15:45 → 4TH 07-28 13:32
PROVIDERS: ADMIT Family Medicine; ATTEND Family Medicine
PROC: BF101ZZ Fluoroscopy of Bile Ducts using Low Osmolar Contrast (ICD-10-PCS; 2018-07-26)
PROC: 0BH17EZ Insertion of Endotracheal Airway into Trachea, Via Natural or Artificial Opening (ICD-10-PCS; 2018-07-26)
PROC: 5A1935Z Respiratory Ventilation, Less than 24 Consecutive Hours (ICD-10-PCS; 2018-07-26)
PROC: 0FT44ZZ Resection of Gallbladder, Percutaneous Endoscopic Approach (ICD-10-PCS; principal; 2018-07-26 13:36)
DX: K80.01 Calculus of gallbladder with acute cholecystitis with obstruction (principal); K85.10 Biliary acute pancreatitis without necrosis or infection; K65.4 Sclerosing mesenteritis; E87.2 Acidosis; J95.821 Acute postprocedural respiratory failure; J90 Pleural effusion, not elsewhere classified; J81.1 Chronic pulmonary edema; D64.89 Other specified anemias; I12.9 Hypertensive chronic kidney disease with stage 1 through stage 4 chronic kidney disease, or unspecified chronic kidney disease; N18.3 Chronic kidney disease, stage 3 (moderate); I95.81 Postprocedural hypotension; R00.0 Tachycardia, unspecified; E87.70 Fluid overload, unspecified; K57.90 Diverticulosis of intestine, part unspecified, without perforation or abscess without bleeding; K21.9 Gastro-esophageal reflux disease without esophagitis; R73.03 Prediabetes; E78.00 Pure hypercholesterolemia, unspecified; M19.91 Primary osteoarthritis, unspecified site; E83.42 Hypomagnesemia; G62.9 Polyneuropathy, unspecified; I87.2 Venous insufficiency (chronic) (peripheral); K44.9 Diaphragmatic hernia without obstruction or gangrene; E66.01 Morbid (severe) obesity due to excess calories; L97.529 Non-pressure chronic ulcer of other part of left foot with unspecified severity; L97.519 Non-pressure chronic ulcer of other part of right foot with unspecified severity; Z68.32 Body mass index [BMI] 32.0-32.9, adult; Z85.528 Personal history of other malignant neoplasm of kidney; Z85.850 Personal history of malignant neoplasm of thyroid; Z85.3 Personal history of malignant neoplasm of breast; Z90.13 Acquired absence of bilateral breasts and nipples
CPT/HCPCS: 36415; 36600; 71045; 74177; 80048; 80053; 81000; 82150; 82805; 83605; 83690; 83735; 83880; 84478; 84484; 85007; 85025; 85027; 86850; 86900; 86901; 86920; 87040; 87070; 87075; 87081; 87088; 87186; 87205; 88304; 93005; 94002; 94003; 94760; 94799; 96361; 96374; 96375; 96376

== ENCOUNTER → 2018-10-29 | Outpatient (CLI) | payer MEDICARE, MEDICAID ==
[~2018-10-29] MED LIST: ANAS1TAB7 PO; ASCO-262 PO; ASPI-983 PO; ATOR80TA76 PO; ATORVASTATIN 80 MG; CATHETER FLUSH 10 ML SYR IV PRN; ESOM40CA52 PO; ESOMEPRA MAG CAP 40MG DR; HCTZ; HOLD METFORMIN - RECEIVED CONTRAST 20 ML VIAL IV SCH; IOHEXOL 350 MG/ML 100 ML (OMNIPAQUE 350) VIAL IV ONE; METO-395 PO; METOPROLOL SUCCINATE 100 MG; MULT1TAB69 PO; NS 100 ML (IVPB) BAG IV ONE; OXYC-471 PO; OXYCOD/APAP TAB 5-325MG; POTA10TA10 PO; PRAM0.5T9 PO; PRAMIPEXOLE 0.5 MG; TRIA1TAB3 PO; TRIAMT; VITA-189 PO
[2018-10-29 11:20] LABS: CREATININE SERUM 1.1 MG/DL (0.60-1.30)
--- NOTE | 2018-10-29 15:09 | Diagnostic Imaging Report ---
EXAMINATION: CT Chest without contrast. TECHNIQUE: Multiple contiguous axial images were obtained through the chest without the use of intravenous contrast. All CT scans use one or more of the following dose optimizing techniques: automated exposure control, MA and/or KvP adjustment based on a patient size and exam type, or iterative reconstruction. HISTORY: Cough FINDINGS: No comparison available. There is a linear area of atelectasis involving the right middle lobe. There is a 3 mm right lower lobe pulmonary nodule (series 3, image 75). No other pulmonary nodules are seen. No edema or pneumonia. No pleural effusion or pneumothorax. Heart size is normal. No pericardial effusion. Aorta is normal in caliber. There have been bilateral mastectomies and there is scarring in the right axilla, likely from prior lymph node dissection. Hypoattenuating enlargement of the left lobe of the thyroid as well as to hyperattenuating right thyroid nodules are seen. There is no axillary, supraclavicular or mediastinal lymphadenopathy. Limited views of the upper abdomen reveal cysts in the kidneys and cholecystectomy clips. The noncontrast appearance of a right renal cyst is unremarkable but this was noted to be multiseptated with enhancing septations on prior CT. There is a 3.1 x 4.7 cm masslike lesion which appears contiguous with the falciform ligament/umbilical vein. This was not present on prior CT of the abdomen and pelvis and is not fully included in the field of view. There are no suspicious osseous lesions. Impression: 1. New masslike lesion contiguous with the falciform ligament/umbilical vein and incompletely characterized as it is not entirely included in the [id number]. Recommend a CT of the abdomen and pelvis with intravenous contrast for further evaluation. 2. Suspicious right renal cystic lesion, better characterized on prior exam and concerning for a cystic renal cell carcinoma. 3. Thyroid nodules, dedicated ultrasound is recommended if not performed previously. Dictated by: Dictated on workstation # [id number]
== END ==
LOC: RAD FS 10:33
PROVIDERS: ATTEND Nurse Practitioner Family
DX: J30.9 Allergic rhinitis, unspecified (principal); N28.9 Disorder of kidney and ureter, unspecified; E04.2 Nontoxic multinodular goiter; Z90.13 Acquired absence of bilateral breasts and nipples; Z90.49 Acquired absence of other specified parts of digestive tract
CPT/HCPCS: 36415; 71250; 82565; 84520

== ENCOUNTER → 2018-11-04 | Outpatient (CLI) | payer MEDICARE, MEDICAID ==
[~2018-11-04] MED LIST changes: -CATHETER FLUSH 10 ML SYR IV PRN; -HOLD METFORMIN - RECEIVED CONTRAST 20 ML VIAL IV SCH; -IOHEXOL 350 MG/ML 100 ML (OMNIPAQUE 350) VIAL IV ONE; -NS 100 ML (IVPB) BAG IV ONE; +RT-ALBUTEROL SULF 2.5 MG/3 ML PRE-MIX VIAL INH ONE
== END ==
LOC: RT 11:39
PROVIDERS: ATTEND Nurse Practitioner Family
DX: J30.9 Allergic rhinitis, unspecified (principal)
CPT/HCPCS: 94060; 94729

== ENCOUNTER → 2018-12-27 | Outpatient (CLI) | payer MEDICARE, MEDICAID ==
[~2018-12-27] MED LIST changes: +CATHETER FLUSH 10 ML SYR IV PRN; +HOLD METFORMIN - RECEIVED CONTRAST 20 ML VIAL IV SCH; +IOHEXOL 350 MG/ML 100 ML (OMNIPAQUE 350) VIAL IV ONE; +NS 100 ML (IVPB) BAG IV ONE; -RT-ALBUTEROL SULF 2.5 MG/3 ML PRE-MIX VIAL INH ONE
[2018-12-27 09:30] LABS: POTASSIUM 4.5 MMOL/L (3.6-5.0)
[2018-12-27 09:31] LABS: BILIRUBIN,TOTAL 0.6 MG/DL (0.1-1.0); CALCIUM 10.3 MG/DL (8.5-10.1); CREATININE SERUM 1.03 MG/DL (0.60-1.30); TOTAL PROTEIN 7.2 GM/DL (6.4-8.2)
== END ==
LOC: RAD FS 08:35
PROVIDERS: ATTEND Nurse Practitioner Family
DX: N18.3 Chronic kidney disease, stage 3 (moderate) (principal); E78.2 Mixed hyperlipidemia; R19.00 Intra-abdominal and pelvic swelling, mass and lump, unspecified site
CPT/HCPCS: 36415; 80053

== ENCOUNTER → 2020-02-24 | Outpatient (CLI) | payer MEDICARE, MEDICAID ==
[~2020-02-24] MED LIST changes: +ASPI-1238 PO; -ASPI-983 PO; -CATHETER FLUSH 10 ML SYR IV PRN; -HOLD METFORMIN - RECEIVED CONTRAST 20 ML VIAL IV SCH; -IOHEXOL 350 MG/ML 100 ML (OMNIPAQUE 350) VIAL IV ONE; -METO-395 PO; +MTP100TCR PO; +MULT-567 PO; -MULT1TAB69 PO; -NS 100 ML (IVPB) BAG IV ONE
--- NOTE | 2020-02-24 14:10 | Diagnostic Imaging Report ---
INDICATION: Postmenopausal. COMPARISON: None FINDINGS: The bone mineral density of the hips and spine was measured. The total T-score for the spine is -1.1. This does indicate mild osteopenia. The total T-score for each hip is -1.8. These values also fall in the range of osteopenia. The T-score for the left femoral neck is -2.1. This suggests severe osteopenia. The T-score for the right femoral neck is -2.5 and this does indicate borderline osteoporosis. AP Spine L1-L4: [BMD (g/cm2): 1.067] [T-Score: -1.1] [Z-Score: 0.1] [BMD Previous: na] [BMD % Change: na] LT Hip Neck: [BMD (g/cm2): 0.749] [T-Score: -2.1] [Z-Score: -0.4] LT Hip Total: [BMD (g/cm2):0.780] [T-Score:-1.8] [Z-Score: -0.3] [BMD Previous: na] [BMD % Change: na] RT Hip Neck: [BMD (g/cm2):0.686] [T-Score:-2.5] [Z-Score:-0.8] RT Hip Total: [BMD (g/cm2):0.777] [T-score:-1.8] [Z-Score:-0.3] [BMD Previous:na] [BMD % Change:na] *Indicates significant change from prior examination based on 95% confidence level. World Health Organization criteria for BMD interpretation classify patients as Normal (T-score at or above -1.0), Osteopenic (T-score between -1.0 and -2.5) or Osteoporotic (T-score at or below -2.5). LIMITATIONS AND MODIFICATION: None. FRACTURE RISK (FRAX SCORE): The ten year probability of (%): Major Osteoporotic Fracture: [25.7] Hip Fracture: [8.1] IMPRESSION: 1. There is osteopenia of the spine, the hips and the left femoral neck. 2. There is borderline osteoporosis of the right femoral neck. 3. See below National Osteoporosis Foundation guidelines on when to potentially initiate pharmacologic therapy. Based on the National Osteoporosis Foundation Guidelines, pharmacologic treatment should be initiated in any of the following, unless clinical conditions suggest otherwise: * Any patient with prior fragility fracture of the hip or vertebrae. A spine fracture indicates 5X risk for subsequent spine fracture and 2X risk for subsequent hip fracture. * Osteoporosis (T-score <-2.5). * Postmenopausal women and men age 50 and older with low bone mass/osteopenia (T-score between -1.0 and -2.5) by DXA and 10-year major osteoporotic fracture greater than 20% or a 10-year probability of hip fracture greater than 3%. These fracture risks are supplied above in the FRAX score, if applicable. * Clinician judgement and/or patient preferences may indicate treatment for people with 10-year fracture probabilities above or below these levels. Dictated by: Dictated on workstation # [id number]
== END ==
LOC: RAD 12:58
PROVIDERS: ATTEND Nurse Practitioner Family
DX: M85.89 Other specified disorders of bone density and structure, multiple sites (principal); Z78.0 Asymptomatic menopausal state
CPT/HCPCS: 77080